=== PATIENT | male | born 1955 | race African-American/Black ===

== ENCOUNTER 2016-07-10 15:26 | Inpatient (IN) | payer OTHER ==
[~2016-07-10] VITALS: Ht 167.6 cm; Wt 57.8 kg
[2016-07-10] VITALS (15 sets, daily range): BP systolic 73–139; BP diastolic 52–119
--- NOTE | ~2016-07-10 | EKG ---
[place] [address] [facility] [place] [address] ELECTROCARDIOGRAM REPORT Name: SWAPNA LUA Room #: 242-P ADM IN M.R.#: [id number] Admission: 07/10/16 Attend Phys: Rogelio Kasper MD Discharge: Date of : 59 Report #: [id number] THIS REPORT FOR: //name// 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
--- NOTE | ~2016-07-10 | HC ---
[facility] [place] [address] CONSULTATION Name: SWAPNA LUA Room #: 454-P ADM IN M.R.#: [id number] Admission: 07/10/16 Attend Phys: Rogelio Kasper MD Discharge: Date of : 59 Report #: [id number] THIS REPORT FOR: //name// CC: Quiana Kasper CHIEF COMPLAINT: Right septic hip. HISTORY OF PRESENT ILLNESS: This is a quadriplegic patient with deep decubitus ulcer on his right lower extremity, was admitted this past weekend and evaluated for his right hip. He has a large ulcer with extension into the hip joint for which orthopedics was consulted. PAST MEDICAL HISTORY: Includes quadriplegia, hyperlipidemia, , ileal conduit, diverting colostomy, contracture of the lower extremities, diabetes, history of kidney injury due to gentamicin, history of rhabdomyolysis, hypothyroidism, anemia, history of VRE infection, DVT in the right upper extremity in the past, neurogenic bowel, pneumonia, decubitus ulcers. SOCIAL HISTORY: Negative for tobacco or alcohol use, lives in a prison facility. FAMILY HISTORY: Noncontributory. ALLERGIES: None. HOME MEDICATIONS: Noted on the chart. PHYSICAL EXAMINATION: The patient's right lower extremity notes a very large decubitus ulcer with extension posteriorly into the femoroacetabular joint. It is approximately 10 cm in diameter wound with multiple contractures noted to the extremity. IMAGING: CT scan joint of the right hip. IMPRESSION: Right hip and pelvis decubitus ulcers. PLAN: Options were discussed with the patient. At this point, anything surgical would likely include a hip disarticulation for definite management. There does not appear to be enough soft tissue for coverage. Primarily, I would defer this to a tertiary center for further management. Continue with IV antibiotic managements and symptomatic treatments. <ELECTRONICALLY SIGNED> By: Rj Joe MD 07/19/16 1225 1305 1421 Rj Joe MD /nt
--- NOTE | ~2016-07-10 | HC ---
[facility] [place] [address] CONSULTATION Name: SWAPNA LUA Room #: 242-P ADM IN M.R.#: [id number] Admission: 07/10/16 Attend Phys: Rogelio Kasper MD Discharge: Date of : 59 Report #: [id number] THIS REPORT FOR: //name// CC: Quiana Kasper DATE OF SERVICE: 07/10/2016 DATE OF SERVICE: 07/10/2016. REFERRING PROVIDER: Dr. Kasper. REASON FOR CONSULTATION: Sepsis and acidosis. CHIEF COMPLAINT: Altered mental status. HISTORY OF PRESENT ILLNESS: Our group was asked to see the patient in consultation while hospitalized at [facility], seen in ICU this evening. The patient unable to give any history, taken from records, discussion with healthcare providers, history is at the bedside is a 61-year-old male with multiple problems including chronic metabolic acidosis to ileal conduit as well has a history of quadriplegia, severe decubitus ulcerations, just discharged from here 3 days ago, returned from a [facility]pc facility for increasing lethargy. The patient was seen in the Emergency Department. A CT scan of the head without significant acute change. CT abdomen and pelvis, multiple abnormal findings, but nothing that suggests new or acute process, significant acidosis, hypotension noted. The patient received 2 liters of saline Emergency Department ongoing IV fluid resuscitation, this patient appears to be more alert, no distress, not conversant. ALLERGIES: No known drug allergies. PAST MEDICAL HISTORY: 1. History of quadriplegia. 2. Hyperlipidemia. 3. Multiple deep decubitus ulcers. 4. History of ileal conduit. 5. History of diverting colostomy. 6. Severe contractures to the quadriplegia. 7. History of chronic metabolic acidosis secondary to ileal conduit. 8. Hypothyroidism. 9. History of vancomycin-resistant Enterococcus. 10. History of deep venous thrombosis. SOCIAL HISTORY: Nonsmoker, nondrinker, currently lives in a fpc. [address] [address] CONSULTATION Name: SWAPNA LUA Room #: [facility] IN ..#: [id number] Admission: 07/10/16 Attend Phys: Rogelio Kasper MD Discharge: Date of : 59 Report #: [id number] FAMILY HISTORY: Unobtainable due to his current status. REVIEW OF SYSTEMS: Unobtainable due to his current status. INPATIENT MEDICATIONS: 1. Vancomycin. 2. Levaquin. 3. Zosyn. 4. Fentanyl. 5. DuoNeb. PHYSICAL EXAMINATION: VITAL SIGNS: Afebrile, pulse 90s, respiratory rate 14, blood pressure 106/67 and oxygen saturation 99%. GENERAL: This is an elderly male. Awake . ENT: Clear oropharynx, somewhat dry. NECK: Supple, no lymphadenopathy. LUNGS: Clear. No wheezes or crackles. CARDIOVASCULAR: Heart regular. No murmurs or gallops. ABDOMEN: Soft, nontender. Ileostomy and colostomy are present. EXTREMITIES: [place] extremities with significant contractures. No edema. Significant muscular atrophy noted. LABORATORY DATA: Chest x-ray essentially clear. White blood cell count 16,000, hemoglobin 9, hematocrit 27, platelet count 724. Sodium 145, potassium 4.8, chloride 117, bicarbonate 16, BUN 53, creatinine 1.3, glucose 101, alkaline phosphatase , albumin 1.2. IMPRESSION: 1. Sepsis of unclear etiology, multiple potential sources including urinary tract and multiple decubitus ulcers, suggesting nothing for pneumonia in this case. 2. Hypertension, seems to respond will IV fluids, likely secondary to #1 above and mild volume depletion. 3. Hypernatremia. 4. Severe metabolic acidosis with concomitant respiratory acidosis, pH slightly low for the level of metabolic acidosis and this is likely related to ileal conduit. 5. Quadriplegia. 6. Contractures. 7. Deep decubitus ulcers. SUGGESTIONS: 1. ID consultation. 2. Wound care management. Continue with IV antibiotics. 3. Follow up arterial blood gas. [address] [address] CONSULTATION Name: SWAPNA LUA Room #: 242-[facility] IN M.R.#: [id number] Admission: 07/10/16 Attend Phys: Rogelio Kasper MD Discharge: Date of : 59 Report #: [id number] 4. Minimize any sedating medications that may alter respiratory acidosis further. 5. To check TSH if not done in the recent past. 6. ICU care. 7. Continue with IV fluids. 8. Additional recommendations to follow. Thank you for requesting our suggestions. <ELECTRONICALLY SIGNED> By: Joselo Blount MD 07/11/16 1121 [id number] [id number] Joselo Blount MD /nt
--- NOTE | ~2016-07-10 | HC ---
[facility] [place] [address] CONSULTATION Name: SWAPNA LUA Room #: 242-P ADM IN M.R.#: [id number] Admission: 07/10/16 Attend Phys: Rogelio Kasper MD Discharge: Date of : 59 Report #: [id number] THIS REPORT FOR: //name// CC: Quiana Kasper DATE OF CONSULTATION: 07/11/2016. REASON FOR CONSULTATION: Multiple electrolyte abnormalities. HISTORY OF PRESENT ILLNESS: This 61-year-old male has a longstanding history of quadriplegia and multiple complications thereof. We have seen him previously for electrolyte abnormalities including hypoalbuminemia, hypokalemia and hyperchloremic metabolic acidosis as well as episodic acute kidney injury with intercurrent illness. He was admitted at this time and following a recent discharge from [facility] where he had been hospitalized from 06/26/2016-07/04/2016 with sepsis related to chronic wounds. He is readmitted at this time with confusion and diminished clinical status. He was admitted to the Intensive Care Unit due to hypotension and started on Levophed. Appropriate cultures have been obtained. DIAGNOSTIC DATA: His electrolyte studies remarkable for potassium 4.8, chloride 117, CO2 16, BUN 53, creatinine 1.3. Arterial blood gases pH 7.21, pCO2 of 35, pO2 81. Lactate 0.9. PAST MEDICAL HISTORY: Remarkable as described above for paraplegia. He has neurogenic bladder status post ileal conduit, diverting colostomy, diabetes mellitus, contracture deformities, ventral hernias, repeated DVTs and nosocomial infection. ALLERGIES: He has no known drug allergies. SOCIAL HISTORY: He resigned in a nursing facility. He has no reported drug or alcohol abuse. He is disabled. FAMILY HISTORY, PERSONAL AND SOCIAL HISTORY: Unavailable at this time. MEDICATIONS: Prior to admission to the hospital include albuterol, , Kingsley, Nephrocaps, Lipitor, baclofen, Rocephin, Celexa, Valium, hydrocodone, Niferex, Remeron, pantoprazole. PHYSICAL EXAMINATION: GENERAL: Reveals a chronically ill, well-developed but deformed male with contractures. He responds, but is sluggish. VITAL SIGNS: Blood pressure 94/61, pulse 94, respirations 13. SKIN: Warm and dry. There are multiple superficial wounds with a sacral decubitus which I was unable to review at the time of examination. There is a [address] [address] CONSULTATION Name: SWAPNA LUA Room #: 242-P ADM IN [facility].#: [id number] Admission: 07/10/16 Attend Phys: Rogelio Kasper MD Discharge: Date of : 59 Report #: [id number] PEG tube in place, a colostomy tube and a ileal conduit ostomy in place. EXTREMITIES: Reveal diminished turgor. There is no clubbing, cyanosis, edema or adenopathy. HEENT: The head is normocephalic and atraumatic. NECK: Supple. LUNGS: [place] reveal scattered rhonchi bilaterally without evidence of consolidation. CARDIOVASCULAR: Reveals regular rate and rhythm. ABDOMEN: Soft and nontender. NEUROLOGIC: Reveals the patient to be lethargic, but arousable. He does respond to questions appropriately. He has the above described quadriplegia. LABORATORY STUDIES: Available at the time of consultation include sodium 148, potassium 4.5, chloride 121, CO2 14, BUN 39, creatinine 1.1, calcium 7.3, phosphorus , magnesium 0.9, albumin 0.9. White blood cell count 14,900, hemoglobin 7.6, hematocrit 24.4, platelet count 602,000. Arterial blood gases pH 7.188, pCO2 of 30, pO2 107. Lactate 0.9. ASSESSMENT: 1. Hyperchloremic metabolic acidosis related to his ileal conduit. He needs additional bicarbonate supplementation. Normal saline hydration is aggravating his hyperchloremic metabolic acidosis. I have reformulated his intravenous fluids accordingly. 2. Hypomagnesemia, undergoing replacement. 3. History of hypophosphatemia with unknown current phosphorus status. We will obtain a current value. 4. Quadriplegia state. 5. Recurrent sepsis syndrome. Cultures pending, maintained on low dose Levophed at this time. 6. This patient has multiple active medical problems. Palliative care has been addressed with him in the past and he has not wish to pursue that operation. This may be warrant reconsideration at this time. Please see orders. CRITICAL CARE: 45 minutes. <ELECTRONICALLY SIGNED> By: Padilla Evangelista MD 07/11/16 1416 0805 0856 Padilla Evangelista MD /nt
--- NOTE | ~2016-07-10 | H ---
[facility] [place] [address] HISTORY AND PHYSICAL Name: SWAPNA DE LA FUENTE Room #: 170-10 ADM IN M.R.#: [id number] Admission: 07/10/16 Attend Phys: Rogelio Kasper MD Discharge: Date of : 59 Report #: [id number] THIS REPORT FOR: //name// CC: Quiana Kasper DATE OF SERVICE: 07/10/2016 CHIEF COMPLAINT: Lethargy and confusion. History was primarily obtained from talking to the ER physician and also to the patient's sister with DPOA at bedside. HISTORY OF PRESENT ILLNESS: Mr. De La Fuente is a 61-year-old male with history of quadriplegia who is bedbound, history of chronic decubitus ulcer, history of colostomy, PEG tube, and ileal conduit, was brought into the Emergency Room because of lethargy. According to the patient's sister, the patient was apparently a little confused on Thursday. He was more confused and lethargic this morning. Workup in the Emergency Room showed elevated white count and history of sepsis. He does have chronic stage IV decubitus ulcer. He also complains of abdominal pain. REVIEW OF SYSTEMS: Kind of limited from the patient because of his confusion. He is still oriented to self. He is able to recognize his sister. He occasionally follows some simple command. PAST MEDICAL HISTORY: Significant for quadriplegia, history of hyperlipidemia, depression, ileal conduit, diverting colostomy, contracture of the lower extremity and upper extremity, diabetes. He has history of acute kidney injury in the past secondary to gentamicin, history of rhabdomyolysis, hypothyroidism, anemia, history of VRE infection, DVT in the right upper extremity in the past, neurogenic bowel, pneumonia, mild muscle weakness, multiple decubitus ulcers. SOCIAL HISTORY: No smoking or alcohol abuse or illicit drug abuse. The patient lives in a group home facility. FAMILY HISTORY: Noncontributory for this admission. ALLERGIES: No known drug allergy. HOME MEDICATIONS: Reviewed, please look at the nursing documentation of home medications. REVIEW OF SYSTEMS: Unable to obtain at present because of his lethargy. PHYSICAL EXAMINATION: [facility] [address] [place] [address] HISTORY AND PHYSICAL Name: SWAPNA DE LA FUENTE Room #: 170-10 ADM IN [facility]#: [id number] Admission: 07/10/16 Attend Phys: Rogelio Kasper MD Discharge: Date of : 59 Report #: [id number] VITAL SIGNS: Reviewed. His blood pressure initially was 92/57. His blood pressure now is 103/65. His normal blood pressure runs in the systolic in the 80s. His heart rate is 98 per minute, afebrile. GENERAL: He is awake. He follows some simple commands, but is lethargic and confused. He is oriented to self. EYES: Pupils equal, reactive to light. THROAT: Dry oral mucosa. NECK: Supple, no JVD, no bruit, no lymphadenopathy.00 CARDIOVASCULAR: S1, S2. No S3. CHEST: Bilateral air entry present. Reduced breath sounds on the bases, clear on auscultation. ABDOMEN: Mildly distended. Reduced bowel sounds. He has mild diffuse tenderness, no rebound tenderness. No guarding. PERIPHERY: He has trace pedal edema bilaterally. Difficult to appreciate dorsalis pedis bilaterally. He does have a stage I decubitus ulcers on both the heels and also on the lateral aspect of the right ankle. NEUROLOGICAL: He has stage IV ulcers in both the gluteal area. LABORATORY DATA: Reviewed. His EKG shows sinus rhythm, no significant ST segment or T-wave changes. CT of the brain showed no acute abnormality. Chest x-ray showed improving vascular congestion and pulmonary edema and improving lower lobe infiltrate and minimal left-sided pneumonia. His white count is 16,000, hemoglobin is 8.6, platelet is 724. His INR is 1.1. His chemistry showed a sodium of 145, bicarbonate is 16, BUN and creatinine of 53 and 1.3. AST and ALT are 56 and 37, alkaline phosphatase of 301. His albumin is 1.2. UA revealed 1+ blood, trace leukocyte esterase, 0 to 5 wbc. ASSESSMENT AND PLAN: 1. Sepsis. He has multiple focus of possible infection. He does have a left subclavian ____ could be line related, it could be infected decubitus ulcer, rule out any intraabdominal source of infection. The patient will be continued on broad-spectrum antibiotic, Zosyn, levofloxacin, and vancomycin. I have ordered a CT of the abdomen and pelvis to rule out any intraabdominal process. He will be hydrated with IV fluids. He so far received 2 liters of fluid in the ER. He will continue with IV hydration. Infectious Disease also will be consulted. 2. Quadriplegia. 3. Deep venous thrombosis prophylaxis. We will place him on SCD on the leg for deep venous thrombosis prophylaxis. 4. Metabolic acidosis. We will repeat his lactic acid again at 6:30 p.m. 5. Status post percutaneous endoscopic gastrostomy placement status post [facility] [address] [place] [address] HISTORY AND PHYSICAL Name: SWAPNA DE LA FUENTE Room #: 170-10 ADM IN .R.#: [id number] Admission: 07/10/16 Attend Phys: Rogelio Kasper MD Discharge: Date of : 59 Report #: [id number] colostomy and ileal conduit. 6. Severe protein-energy malnutrition, albumin of 1.2. 7. Sacral decubitus ulcer. We will consult Dr. Daniel from wound care. We will check on the CT of the abdomen and pelvis to rule out any osteomyelitis. Treatment plan has been explained to the patient's sister who was also his DPOA in detail. <ELECTRONICALLY SIGNED> By: Rogelio Kasper MD 07/10/16 [phone] Rogelio Kasper MD /nt
--- NOTE | ~2016-07-10 | HC ---
[facility] [place] [address] CONSULTATION Name: SWAPNA LUA Room #: 454-P ADM IN M.R.#: [id number] Admission: 07/10/16 Attend Phys: Rogelio Kasper MD Discharge: Date of : 59 Report #: [id number] THIS REPORT FOR: //name// CC: Quiana Kasper REASON FOR CONSULTATION: I was asked to evaluate concerning septic shock. HISTORY OF PRESENT ILLNESS: The patient was a 61-year-old with quadriplegia, extensive pelvic decubiti and osteomyelitis, [facility] resident, has been hospitalized multiple times in the last several months with sepsis, last 06/26/2016 through 07/07/2016 with a Proteus bacteremia and Klebsiella identified from a ureterostomy. He received IV antibiotic therapy and dismissed on Augmentin. Returns now with decreased mental status, hypotension. CT scan of the head showed no significant change. CT scan of the abdomen and pelvis again shows extensive pelvic disease and osteomyelitis with no definite abscess. He received IV fluids and placed on IV antibiotic therapy. Today he is better, more alert and conversant. He did know that he was in the hospital but could give no other history. ALLERGIES: None known. REVIEW OF SYSTEMS: He has had no cough or sputum production. He has a left IJ tunneled catheter in place that was put in about a month to 6 weeks ago. He has a colostomy and a urostomy, PEG tube, ventral hernia. PAST MEDICAL HISTORY, FAMILY HISTORY AND SOCIAL HISTORY: Otherwise unchanged from his previous consultations and that of his history and physical. MEDICATIONS: Included vancomycin, Levaquin, Zosyn. PHYSICAL EXAMINATION: VITAL SIGNS: He is afebrile, blood pressure in the 90s systolic with a MAP in the 70-80 range, now off Levophed, on room air. GENERAL: He is alert and cooperative, has contractures in his upper extremities and paralysis in the lower extremities with contractures as well, extensive pelvic decubiti as before. LUNGS: Clear. HEART: Regular. ABDOMEN: Mildly distended. He has a midabdominal ventral hernia. PEG site was unremarkable, colostomy in the left unremarkable, ileal conduit on the right unremarkable. LABORATORY STUDIES: Hemoglobin 7.6, white count 14.9, platelet count was 602,000. ABG on room air showed pO2 107, pCO2 29, pH 7.18, bicarb of 11, sodium 148, potassium 4.5, bicarbonate of 14, creatinine 1.1, AST 35, magnesium 0.9, alkaline phosphatase 234, ALT 40, bilirubin 0.2, albumin 0.9, lactate 0.6. [address] [address] CONSULTATION Name: SWAPNA LUA Room #: 454-P ADM IN M.R.#: [id number] Admission: 07/10/16 Attend Phys: Rogelio Kasper MD Discharge: Date of : 59 Report #: [id number] Urinalysis unremarkable other than yeast was present. Urine cultures pending. Blood cultures pending. Influenza antigen negative. CT scan had no change. No acute abnormalities. CT scan of the abdomen and pelvis, right hip soft tissue changes with air traction to the joint. No definite abscess. IMPRESSION AND PLAN: Recurrent sepsis in a patient with quadriplegia, ileal conduit, colostomy, extensive pelvic pressure wounds with extension into his right hip associated with osteomyelitis. I am suspecting his pelvic as a source of his sepsis. He does have central venous catheter in place and we will need to await blood culture results. Chest x-ray shows basilar changes and vascular congestion, overall improved from before. I do not think that pneumonia is his cause at this time. I would recommend that we continue IV antibiotic therapy while awaiting cultures. He has improved with fluid resuscitation. Remains on treatment for metabolic acidosis. Nephrology is assisting with this. <ELECTRONICALLY SIGNED> By: Michael Goyal MD 07/14/16 0818 0932 1004 Michael Goyal MD /nt
[~2016-07-10 15:26] MED LIST: ACETAMINOPHEN325 M3 PO; ALBUTEROL0.63 MG/3 INH; ANTACID650 MG PO; APAP650; BENADRYL25 MG PO; BETADINE30 ML OP; CATHFLO ACT2 MG/VIAL; CELEXA20 MG PO; CENTRUM SILVER1 EAC2; COLACE100 MG PO; DEX4 GLUCOSE1 EACH PO; DEXTROSE 5025 GM/SYR; DIFLUCAN100 MG; DIPHENHYDRAMINE25 M3; DUONEB 2.5-0.5 M3 ML; ENOXAPARIN30 MG/0.1 SUBQ; ENOXAPARIN40 MG/0.1 SUBQ; ENOXAPARIN60 MG/0.1; FLAGYL500 MG; FOLIC ACID1 MG; GLUCAGEN1 MG; GLUCERNA237 M1 PO; GLUCOSE GEL38 GM; HYDROCERIN CREA1 JAR; HYDROCODONE-AP1 EAC6 PO; IRON325 PO; JANTOVEN5 MG PO; JUVEN PACKET1 EACH PO; KAYEXALATE15 GM/601 PO; KETOCONAZOLE60 GM TOP; LASIX 20 MG TAB20 MG PO; LEXAPRO 10 MG T10 M1 PO; LEXAPRO 10 MG T10 M2 PO; LINEZOLID600 MG; LINEZOLID600 MG/300 IV; LIORESAL 10 MG10 MG PO; LIPITOR10 MG PO; MAGNESIUM OXID200 MG; MAGOX 400400 MG PO; MEROPENEM500 MG IV; MIDODRINE HCL 55 M1; MIRALAX17 GM; MIRALAX255 GM PO; MUCINEX TA600 MG/TA2; NEPHROCAPS SOFT1 CAP PO; NOREPINEPH; NUVIGIL150 MG; ONDANSETRON HCL4 M2; OXYBUTYNIN 5 MG5 M2; OXYCODONE HCL 55 MG; PANTOPRAZOLE SO40 M1 PO; PIPERACIL-TAZ2.25 GM; POLYSACCHARIDE150 M1 PO; POTASSIUM20 PO; PRILOSEC 20 MG20 MG PO; PRO-STAT LIQUID30 M1 PO; PROTONIX40 M1; REGLAN 10 MG TA10 MG; REGLAN 10 MG TA10 MG PO; REMERON15 MG PO; ROBITUSSIN100 MG/53 PO; ROCEPHIN 11 GM/1001 IM; ROCEPHIN 11 GM/1001 IV; ROXICODONE5 M2 PO; SALINE FLUSH IV PUSH; SENNA S TABLET1 EACH PO; TEARS NATURALE1 EACH OPHTHALMIC; TUMS PO; VALIUM5 MG PO; VANCO1GM IVPB; VITAMINC500 PO; ZANTAC 150MG T150 M1 PO; ZOFRAN ODT4 MG DISSOLVE; ZOSYN 4.54.5 GM/101 IV
[2016-07-10 15:56] LABS: HEMOGLOBIN 8.6 gm/dL (14.0-18.0); MCH 27.5 pg (26.0-34.0); MCHC 31.8 g/dL (28.0-37.0); MCV 86.2 fL (80.0-100.0); PLATELET COUNT 724 thou/uL (150-400); RBC 3.13 mil/uL (4.50-6.00); RDW 20.7 % (10.5-14.5)
[2016-07-10 15:57] LABS: MANUAL DIFF YES
[2016-07-10 16:07] LABS: INR 1.1; PROTIME 11.2 Seconds (9.3-11.4)
[2016-07-10 16:14] LABS: ANION GAP 12 mmol/L (7-16); BUN 53 mg/dL (7-18); CALCIUM 8.6 mg/dL (8.5-10.1); CHLORIDE 117 mmol/L (98-107); CO2 16 mmol/L (21-32); CREATININE 1.3 mg/dL (0.6-1.3); GLUCOSE 101 mg/dL (70-99); POTASSIUM 4.8 mmol/L (3.5-5.1); SODIUM 145 mmol/L (136-145)
[2016-07-10 16:21] LABS: ALBUMIN 1.2 g/dL (3.4-5.0); ALKALINE PHOSPHATASE 301 U/L (46-116); SGOT 56 U/L (15-37); SGPT 57 U/L (30-65); TOTAL BILIRUBIN 0.2 mg/dL (<0.1-1.0); TOTAL PROTEIN 7.6 g/dL (6.4-8.2); TROPONIN-I < 0.04 ng/mL (<0.04-0.07)
[2016-07-10 16:30] LABS: ABSOLUTE NEUTROPHILS 13.4 thou/uL (1.4-8.2); ANISOCYTOSIS 2+; TOTAL CELL COUNT 100
[2016-07-10 16:50] LABS: URINE BILIRUBIN NEGATIVE (Negative); URINE BLOOD 1+ (Negative); URINE COLOR YELLOW; URINE GLUCOSE-RANDOM* NEGATIVE (Negative); URINE KETONES NEGATIVE (Negative); URINE NITRITE NEGATIVE (Negative); URINE PROTEIN (DIPSTICK) 2+ (Negative); URINE UROBILINOGEN 0.2 E.U./dl (0.2-1.0)
[2016-07-10 17:04] LABS: YEAST Present (None Seen)
[2016-07-10 17:05] LABS: CASTS None Seen /LPF (None Seen); CRYSTALS None Seen /LPF (None Seen); URINE WBC 0-5 Rare /HPF (0-5)
[2016-07-10 17:06] LABS: BACTERIA 1-9 Few /HPF (None Seen); SQUAMOUS 0-3 Few /LPF (0-3); URINE RBC 0-2 Rare /HPF (0-2)
[2016-07-10 18:28] LABS: ABG SAMPLE TYPE ARTERIAL; BE(vivo) -13.1 mmol/L (-2 to +3); HCO3 13.7 mmol/L (22.0-26.0); LACTATE 0.95 mmol/L (0.5-2.0); O2(CT) 11.5 mL/dL (15.0-23.0); O2Hb 94.9 % (92.0-98.0); PO2 81.9 mmHg (80.0-100.0); sO2 93.9 % (92.0-98.0); tCO2 14.8 mmol/L (24.0-30.0)
[2016-07-10 18:29] LABS: pH 7.211 (7.360-7.450)
[2016-07-11] VITALS (53 sets, daily range): BP systolic 62–213; BP diastolic 40–135
[2016-07-11 04:34] LABS: ALBUMIN 0.9 g/dL (3.4-5.0); CALCIUM 7.3 mg/dL (8.5-10.1); CREATININE 1.1 mg/dL (0.6-1.3); POTASSIUM 4.5 mmol/L (3.5-5.1); TOTAL BILIRUBIN 0.2 mg/dL (<0.1-1.0); TOTAL PROTEIN 6.1 g/dL (6.4-8.2)
[2016-07-11 04:54] LABS: MAGNESIUM 0.9 mg/dL (1.8-2.4)
[2016-07-11 05:41] LABS: ABG SAMPLE TYPE ARTERIAL; BE(vivo) -15.8 mmol/L (-2 to +3); O2Hb 96.7 % (92.0-98.0); PCO2 29.8 mmHg (35.0-45.0); sO2 96.8 % (92.0-98.0)
[2016-07-11 06:02] LABS: pH 7.187 (7.360-7.450)
[2016-07-11 07:14] LABS: HEMATOCRIT 24.4 % (42.0-52.0); HEMOGLOBIN 7.6 gm/dL (14.0-18.0); MCH 27.3 pg (26.0-34.0); MCV 88.2 fL (80.0-100.0); RBC 2.77 mil/uL (4.50-6.00); RDW 21.6 % (10.5-14.5); WBC 14.9 thou/uL (4.0-11.0)
[2016-07-11 14:22] LABS: ABG SAMPLE TYPE ARTERIAL; BE(vivo) -12.6 mmol/L (-2 to +3); HCO3 13.2 mmol/L (22.0-26.0); LACTATE 1.56 mmol/L (0.5-2.0); O2(CT) 12.3 mL/dL (15.0-23.0); O2Hb 96.8 % (92.0-98.0); PCO2 29.9 mmHg (35.0-45.0); PO2 102.8 mmHg (80.0-100.0); pH 7.264 (7.360-7.450); tCO2 14.2 mmol/L (24.0-30.0)
[2016-07-11 15:14] LABS: CALCIUM 7.6 mg/dL (8.5-10.1); MAGNESIUM 1.9 mg/dL (1.8-2.4); PHOSPHORUS 2.9 mg/dL (2.5-4.9); POTASSIUM 3.9 mmol/L (3.5-5.1)
[2016-07-12] VITALS (39 sets, daily range): BP systolic 79–103; BP diastolic 37–71
[2016-07-12 04:57] LABS: HEMATOCRIT 22.6 % (42.0-52.0); HEMOGLOBIN 7.3 gm/dL (14.0-18.0); MCH 27.6 pg (26.0-34.0); MCHC 32.4 g/dL (28.0-37.0); MCV 85.1 fL (80.0-100.0); RBC 2.66 mil/uL (4.50-6.00); RDW 20.4 % (10.5-14.5); WBC 11.7 thou/uL (4.0-11.0)
[2016-07-12 05:11] LABS: ALBUMIN 0.9 g/dL (3.4-5.0); CALCIUM 7.3 mg/dL (8.5-10.1); CREATININE 1.1 mg/dL (0.6-1.3); MAGNESIUM 1.5 mg/dL (1.8-2.4); PHOSPHORUS 2.6 mg/dL (2.5-4.9); POTASSIUM 3.5 mmol/L (3.5-5.1)
[2016-07-12 05:29] LABS: ABG SAMPLE TYPE ARTERIAL; BE(vivo) -6.6 mmol/L (-2 to +3); HCO3 17.6 mmol/L (22.0-26.0); LACTATE 2.11 mmol/L (0.5-2.0); O2(CT) 10.9 mL/dL (15.0-23.0); O2Hb 95.3 % (92.0-98.0); PCO2 30.1 mmHg (35.0-45.0); PO2 86.5 mmHg (80.0-100.0); pH 7.385 (7.360-7.450); sO2 96.6 % (92.0-98.0); tCO2 18.5 mmol/L (24.0-30.0)
[2016-07-12 05:30] LABS: STICK SITE R.RADIAL
[2016-07-13 02:54] VITALS: BP 92/52
[2016-07-13 04:26] LABS: ABSOLUTE NEUTROPHILS 10.5 thou/uL (1.4-8.2); BASOPHILS 0.5 % (0.0-2.0); EOSINOPHILS 1.9 % (0.0-3.0); HEMATOCRIT 21.7 % (42.0-52.0); LYMPHOCYTES 8.2 % (24.0-44.0); MCH 27.1 pg (26.0-34.0); MCHC 32.4 g/dL (28.0-37.0); MCV 83.7 fL (80.0-100.0); MONOCYTES 7.2 % (1.0-8.0); POLYS 82.2 % (36.0-66.0); RBC 2.59 mil/uL (4.50-6.00); RDW 20.1 % (10.5-14.5); WBC 12.8 thou/uL (4.0-11.0)
[2016-07-13 04:34] LABS: PLATELET COUNT 525 thou/uL (150-400)
[2016-07-13 04:35] LABS: MANUAL DIFF NO
[2016-07-13 04:44] LABS: ALBUMIN 0.9 g/dL (3.4-5.0); CALCIUM 7.1 mg/dL (8.5-10.1); MAGNESIUM 1.5 mg/dL (1.8-2.4); PHOSPHORUS 1.5 mg/dL (2.5-4.9); POTASSIUM 3.1 mmol/L (3.5-5.1)
[2016-07-13 07:46] VITALS: BP 93/48
[2016-07-13 11:59] VITALS: BP 87/50
[2016-07-13 15:40] VITALS: BP 86/49
[2016-07-13 20:09] VITALS: BP 101/57
[2016-07-14 03:09] VITALS: BP 102/48
[2016-07-14 06:24] LABS: RDW 20.4 % (10.5-14.5); WBC 11.1 thou/uL (4.0-11.0)
[2016-07-14 06:27] LABS: MCH 27.5 pg (26.0-34.0); MCHC 32.4 g/dL (28.0-37.0); MCV 84.7 fL (80.0-100.0); PLATELET COUNT 457 thou/uL (150-400); RBC 2.47 mil/uL (4.50-6.00)
[2016-07-14 06:30] LABS: HEMOGLOBIN 6.8 gm/dL (14.0-18.0); MANUAL DIFF YES
[2016-07-14 06:37] LABS: ALBUMIN 0.9 g/dL (3.4-5.0); CALCIUM 7.1 mg/dL (8.5-10.1); CREATININE 1.1 mg/dL (0.6-1.3); MAGNESIUM 1.6 mg/dL (1.8-2.4); PHOSPHORUS 2.5 mg/dL (2.5-4.9); POTASSIUM 4.3 mmol/L (3.5-5.1)
[2016-07-14 07:08] LABS: ABSOLUTE NEUTROPHILS 9.4 thou/uL (1.4-8.2); TOTAL CELL COUNT 100
[2016-07-14 07:10] LABS: ANISOCYTOSIS 2+; POLYCHROMASIA OCCASIONAL
[2016-07-14 08:12] VITALS: BP 91/53
[2016-07-14 11:57] VITALS: BP 97/61
[2016-07-14 16:20] VITALS: BP 93/53
[2016-07-14 17:35] VITALS: BP 91/56; BP 91/57
[2016-07-14 19:49] VITALS: BP 93/60
[2016-07-15 03:45] VITALS: BP 99/61
[2016-07-15 06:27] LABS: ABSOLUTE NEUTROPHILS 8.5 thou/uL (1.4-8.2); BASOPHILS 0.6 % (0.0-2.0); EOSINOPHILS 7.2 % (0.0-3.0); HEMATOCRIT 23.7 % (42.0-52.0); HEMOGLOBIN 7.9 gm/dL (14.0-18.0); LYMPHOCYTES 10.1 % (24.0-44.0); MCHC 33.4 g/dL (28.0-37.0); MCV 83.7 fL (80.0-100.0); PLATELET COUNT 390 thou/uL (150-400); POLYS 75.1 % (36.0-66.0); RBC 2.83 mil/uL (4.50-6.00); RDW 19.3 % (10.5-14.5); WBC 11.4 thou/uL (4.0-11.0)
[2016-07-15 06:28] LABS: MANUAL DIFF NO
[2016-07-15 06:53] LABS: ALBUMIN 0.9 g/dL (3.4-5.0); CALCIUM 7.5 mg/dL (8.5-10.1); CREATININE 1.1 mg/dL (0.6-1.3); MAGNESIUM 1.8 mg/dL (1.8-2.4); PHOSPHORUS 2.7 mg/dL (2.5-4.9); POTASSIUM 4.7 mmol/L (3.5-5.1)
[2016-07-15 08:00] VITALS: BP 92/57
[2016-07-15 12:25] VITALS: BP 84/55
[2016-07-15 16:00] VITALS: BP 108/66
[2016-07-15 19:14] VITALS: BP 81/55
[2016-07-15 23:30] VITALS: BP 83/57
[2016-07-16 03:43] VITALS: BP 85/51
[2016-07-16 08:05] VITALS: BP 81/53
[2016-07-16 12:19] VITALS: BP 80/48
[2016-07-16 16:09] VITALS: BP 81/52
[2016-07-16 19:37] VITALS: BP 94/60
[2016-07-17 04:08] VITALS: BP 90/56
[2016-07-17 08:27] VITALS: BP 90/54
[2016-07-17 12:03] VITALS: BP 88/51
[2016-07-17 19:27] VITALS: BP 107/70
[2016-07-18 05:45] VITALS: BP 97/64
[2016-07-18 11:41] VITALS: BP 88/56
[2016-07-18 16:00] VITALS: BP 90/56
[2016-07-18 19:07] VITALS: BP 98/54
[2016-07-19 03:17] VITALS: BP 87/51
[2016-07-19 08:02] VITALS: BP 110/61
[2016-07-19 11:55] VITALS: BP 120/78
[2016-07-19 16:14] VITALS: BP 103/66
[2016-07-19 19:45] VITALS: BP 82/55
[2016-07-20 04:01] VITALS: BP 136/85
[2016-07-20 04:48] LABS: HEMATOCRIT 26.6 % (42.0-52.0); HEMOGLOBIN 8.5 gm/dL (14.0-18.0); MCHC 32.1 g/dL (28.0-37.0); MCV 87.2 fL (80.0-100.0); PLATELET COUNT 405 thou/uL (150-400); RBC 3.05 mil/uL (4.50-6.00); RDW 18.8 % (10.5-14.5)
[2016-07-20 04:53] LABS: MANUAL DIFF YES
[2016-07-20 06:02] LABS: ALBUMIN 1.1 g/dL (3.4-5.0); CALCIUM 7.9 mg/dL (8.5-10.1)
[2016-07-20 06:06] LABS: POTASSIUM 6.1 mmol/L (3.5-5.1)
[2016-07-20 06:15] LABS: ABSOLUTE NEUTROPHILS 7.5 thou/uL (1.4-8.2); TOTAL CELL COUNT 100
[2016-07-20 06:16] LABS: ANISOCYTOSIS 2+; LARGE PLATELETS OCCASIONAL; MACROCYTES 1+; MICROCYTES 1+
[2016-07-20 06:17] LABS: POLYCHROMASIA SLIGHT
[2016-07-20 08:13] VITALS: BP 108/73
[2016-07-20 12:00] VITALS: BP 97/67
[2016-07-20 16:39] VITALS: BP 105/70
[2016-07-20 19:20] VITALS: BP 109/76
[2016-07-21 04:26] VITALS: BP 98/64
[2016-07-21 08:08] VITALS: BP 105/70
[2016-07-21 12:25] VITALS: BP 107/75
[2016-07-21 15:07] VITALS: BP 154/81
[2016-07-21 19:50] VITALS: BP 111/75
[2016-07-22 03:46] VITALS: BP 103/71
[2016-07-22 08:00] VITALS: BP 110/71
[2016-07-22 16:30] VITALS: BP 106/76
[2016-07-22 20:00] VITALS: BP 104/67
[2016-07-23 03:37] VITALS: BP 119/70
[2016-07-23 06:29] LABS: ABSOLUTE NEUTROPHILS 6.2 thou/uL (1.4-8.2); BASOPHILS 1.1 % (0.0-2.0); EOSINOPHILS 8.4 % (0.0-3.0); HEMATOCRIT 25.2 % (42.0-52.0); HEMOGLOBIN 8.2 gm/dL (14.0-18.0); LYMPHOCYTES 10.7 % (24.0-44.0); MCHC 32.3 g/dL (28.0-37.0); MCV 86.4 fL (80.0-100.0); MONOCYTES 10.3 % (1.0-8.0); PLATELET COUNT 510 thou/uL (150-400); POLYS 69.5 % (36.0-66.0); RBC 2.92 mil/uL (4.50-6.00); RDW 19.1 % (10.5-14.5); WBC 8.9 thou/uL (4.0-11.0)
[2016-07-23 06:35] LABS: MANUAL DIFF NO
[2016-07-23 06:39] LABS: ALBUMIN 1.2 g/dL (3.4-5.0); CALCIUM 8.4 mg/dL (8.5-10.1); CREATININE 1.2 mg/dL (0.6-1.3)
[2016-07-23 06:51] LABS: POTASSIUM 6.3 mmol/L (3.5-5.1)
[2016-07-23 07:55] VITALS: BP 108/73
[2016-07-23 11:55] VITALS: BP 127/79
[2016-07-23 16:06] VITALS: BP 94/63
[2016-07-23 17:02] LABS: CALCIUM 8.2 mg/dL (8.5-10.1); CREATININE 1.1 mg/dL (0.6-1.3)
[2016-07-23 17:09] LABS: POTASSIUM 6.5 mmol/L (3.5-5.1)
[2016-07-23 19:41] VITALS: BP 91/59
[2016-07-23 23:53] VITALS: BP 94/62
[2016-07-24 05:02] VITALS: BP 111/70
[2016-07-24 05:55] LABS: CALCIUM 8.1 mg/dL (8.5-10.1)
[2016-07-24 08:39] VITALS: BP 88/63
[2016-07-24 12:00] VITALS: BP 95/67
[2016-07-24 17:53] VITALS: BP 102/67
[2016-07-24 19:52] VITALS: BP 98/75
[2016-07-25 03:04] VITALS: BP 108/69
[2016-07-25 08:17] VITALS: BP 114/82
[2016-07-25 11:48] VITALS: BP 110/71
[2016-07-25 15:40] VITALS: BP 129/83
[2016-07-25 19:33] VITALS: BP 110/74
[2016-07-26 04:58] VITALS: BP 108/71
[2016-07-26 07:30] VITALS: BP 110/72
[2016-07-26 11:56] VITALS: BP 108/68
[2016-07-26 19:20] VITALS: BP 104/69
[2016-07-27 03:31] VITALS: BP 104/71
[2016-07-27 06:02] LABS: HEMATOCRIT 24.4 % (42.0-52.0); MCH 28.8 pg (26.0-34.0); MCHC 32.7 g/dL (28.0-37.0); MCV 87.9 fL (80.0-100.0); RBC 2.78 mil/uL (4.50-6.00); RDW 19.5 % (10.5-14.5)
[2016-07-27 06:22] LABS: ALBUMIN 1.3 g/dL (3.4-5.0); CALCIUM 7.9 mg/dL (8.5-10.1); CREATININE 0.9 mg/dL (0.6-1.3); POTASSIUM 5.7 mmol/L (3.5-5.1); TOTAL BILIRUBIN 0.2 mg/dL (<0.1-1.0); TOTAL PROTEIN 7.4 g/dL (6.4-8.2)
[2016-07-27 06:28] LABS: MAGNESIUM 0.7 mg/dL (1.8-2.4)
[2016-07-27 09:00] VITALS: BP 100/67
[2016-07-27 16:00] VITALS: BP 11/66
[2016-07-27 21:10] VITALS: BP 11/74; BP 110/74
[2016-07-28 04:00] VITALS: BP 108/65
[2016-07-28 06:11] LABS: BASOPHILS 1.8 % (0.0-2.0); EOSINOPHILS 6.5 % (0.0-3.0); HEMOGLOBIN 7.6 gm/dL (14.0-18.0); LYMPHOCYTES 14.6 % (24.0-44.0); MCH 28.9 pg (26.0-34.0); MCHC 33.2 g/dL (28.0-37.0); MCV 87.1 fL (80.0-100.0); MONOCYTES 6.9 % (1.0-8.0); POLYS 70.2 % (36.0-66.0); RBC 2.65 mil/uL (4.50-6.00); RDW 19.6 % (10.5-14.5); WBC 7.1 thou/uL (4.0-11.0)
[2016-07-28 06:30] LABS: PLATELET COUNT 511 thou/uL (150-400)
[2016-07-28 06:49] LABS: ALBUMIN 1.3 g/dL (3.4-5.0); CALCIUM 7.9 mg/dL (8.5-10.1); POTASSIUM 5.7 mmol/L (3.5-5.1); TOTAL BILIRUBIN 0.2 mg/dL (<0.1-1.0); TOTAL PROTEIN 7.1 g/dL (6.4-8.2)
[2016-07-28 08:31] VITALS: BP 106/69
[2016-07-28 10:02] LABS: MANUAL DIFF NO
[2016-07-28 11:00] VITALS: BP 125/81
[2016-07-28 16:00] VITALS: BP 102/60
[2016-07-28 19:38] VITALS: BP 102/74
[2016-07-29 08:28] VITALS: BP 101/69
[2016-07-29 12:43] VITALS: BP 119/77
[2016-07-29 16:23] LABS: CALCIUM 7.4 mg/dL (8.5-10.1); CREATININE 0.9 mg/dL (0.6-1.3); POTASSIUM 5.4 mmol/L (3.5-5.1)
[2016-07-29 17:31] VITALS: BP 133/73
== END 2016-07-29 19:45 | disposition short-term general hospital (02) | DRG 871 ==
LOC: ER 15:26 → EROBS 17:30 → ICU 17:30 → 4W 07-12 11:45
PROVIDERS: Family Medicine; Hospitalist; Internal Medicine; Internal Medicine Endocrinology, Diabetes & Metabolism; Internal Medicine Infectious Disease; Internal Medicine Nephrology; Internal Medicine Pulmonary Disease; Nurse Practitioner Family; Physician Assistant
PROC: 30233N1 Transfusion of Nonautologous Red Blood Cells into Peripheral Vein, Percutaneous Approach (ICD-10-PCS; principal; 2016-07-14)
DX: A41.9 Sepsis, unspecified organism (principal); G82.50 Quadriplegia, unspecified; E43 Unspecified severe protein-calorie malnutrition; R65.21 Severe sepsis with septic shock; L89.154 Pressure ulcer of sacral region, stage 4; L89.324 Pressure ulcer of left buttock, stage 4; L89.314 Pressure ulcer of right buttock, stage 4; L89.214 Pressure ulcer of right hip, stage 4; E87.0 Hyperosmolality and hypernatremia; N17.9 Acute kidney failure, unspecified; N39.0 Urinary tract infection, site not specified; M00.9 Pyogenic arthritis, unspecified; K21.9 Gastro-esophageal reflux disease without esophagitis; E78.5 Hyperlipidemia, unspecified; N18.9 Chronic kidney disease, unspecified; E03.9 Hypothyroidism, unspecified; E86.9 Volume depletion, unspecified; E87.8 Other disorders of electrolyte and fluid balance, not elsewhere classified; E83.42 Hypomagnesemia; L89.611 Pressure ulcer of right heel, stage 1; L89.621 Pressure ulcer of left heel, stage 1; L89.511 Pressure ulcer of right ankle, stage 1; D63.8 Anemia in other chronic diseases classified elsewhere; E87.6 Hypokalemia; B96.5 Pseudomonas (aeruginosa) (mallei) (pseudomallei) as the cause of diseases classified elsewhere; E83.39 Other disorders of phosphorus metabolism; M62.838 Other muscle spasm; E87.5 Hyperkalemia; Z86.718 Personal history of other venous thrombosis and embolism; Z86.19 Personal history of other infectious and parasitic diseases; Z93.3 Colostomy status; Z68.20 Body mass index [BMI] 20.0-20.9, adult; Z74.01 Bed confinement status
CPT/HCPCS: 10045; 10203

== ENCOUNTER 2016-11-11 09:38 | Inpatient (IN) | payer OTHER ==
[~2016-11-11] VITALS: Ht 165.1 cm; Wt 41.1 kg
--- NOTE | ~2016-11-11 | EKG ---
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 : 1955 Requested By: Angelita Briscoe Order Number: [id number] MD: Aj Watson Measurements Intervals [place] Rate: 73 P: 28 [place]: 146 QRS: -16 QRSD: 142 T: 40 QT: 404 QTc: 446 Interpretive Statements Sinus rhythm Nonspecific intraventricular conduction delay Artifact in lead(s) II,III,aVR,aVL,aVF,V2,V4 Compared to ECG 07/10/2016 15:45:05 Intraventricular conduction delay now present ST (T wave) deviation no longer present Electronically Signed On 11-11-2016 22:57:39 CDT by Aj Watson [email or web address] <ELECTRONICALLY SIGNED> By: Aj Watson MD 11/11/16 2257 0953 0953 Aj Watson MD /EPI
[~2016-11-11 09:38] MED LIST changes: +LIORESAL 10 MG10 MG PER TUBE; +LIPITOR10 MG PER TUBE; -LIPITOR10 MG PO; +REMERON15 MG PER TUBE; -REMERON15 MG PO
[2016-11-11 09:41] VITALS: BP 109/86
[2016-11-11 10:23] LABS: HEMATOCRIT 37.3 % (42.0-52.0); HEMOGLOBIN 12.4 gm/dL (14.0-18.0); MCH 29.4 pg (26.0-34.0); MCHC 33.2 g/dL (28.0-37.0); MCV 88.6 fL (80.0-100.0); PLATELET COUNT 304 thou/uL (150-400); RBC 4.21 mil/uL (4.50-6.00); RDW 16.8 % (10.5-14.5); WBC 6.7 thou/uL (4.0-11.0)
[2016-11-11 10:26] LABS: MANUAL DIFF YES
[2016-11-11 10:35] LABS: ANION GAP 7 mmol/L (7-16); BUN 53 mg/dL (7-18); CALCIUM 9.5 mg/dL (8.5-10.1); CHLORIDE 105 mmol/L (98-107); CO2 30 mmol/L (21-32); CREATININE 1.2 mg/dL (0.7-1.3); GLUCOSE 120 mg/dL (74-106); POTASSIUM 4.2 mmol/L (3.5-5.1); SODIUM 142 mmol/L (136-145)
[2016-11-11 10:40] LABS: URINE BILIRUBIN NEGATIVE (Negative); URINE BLOOD 1+ (Negative); URINE COLOR YELLOW; URINE GLUCOSE-RANDOM* NEGATIVE (Negative); URINE KETONES NEGATIVE (Negative); URINE NITRITE NEGATIVE (Negative); URINE PROTEIN (DIPSTICK) 2+ (Negative); URINE SPECIFIC GRAVITY 1.015 (1.003-1.035); URINE UROBILINOGEN 0.2 E.U./dl (0.2-1.0)
[2016-11-11 10:41] LABS: ALBUMIN 2.8 g/dL (3.4-5.0); ALKALINE PHOSPHATASE 331 U/L (46-116); SGOT 29 U/L (15-37); SGPT 49 U/L (30-65); TOTAL BILIRUBIN 0.4 mg/dL (<0.1-1.0); TOTAL PROTEIN 9.5 g/dL (6.4-8.2); TROPONIN-I < 0.04 ng/mL (<0.04-0.07)
[2016-11-11 10:58] LABS: AMORPHOUS PHOSPHATES Few /LPF (None Seen); BACTERIA >30 Many /HPF (None Seen); CASTS None Seen /LPF (None Seen); SQUAMOUS 0-3 Few /LPF (0-3); URINE RBC 0-2 Rare /HPF (0-2); URINE WBC >25 Many /HPF (0-5)
[2016-11-11] MEDS ORDERED: OXYCODONE HCL15 MG PO (12:33)
[2016-11-11] MEDS ORDERED: POLYSACCHARIDE150 MG PO (12:34)
[2016-11-11 13:06] LABS: ANISOCYTOSIS 1+; TOTAL CELL COUNT 100
[2016-11-11 13:10] VITALS: BP 103/79
[2016-11-11] MEDS ORDERED: APAP650 PER TUBE (15:04)
[2016-11-11] MEDS ORDERED: CYTRA-2 ORAL S473 ML PER TUBE (15:06)
[2016-11-11] MEDS ORDERED: ENOXAPARIN40 MG/0.1 SUBQ (15:07)
[2016-11-11] MEDS ORDERED: LEXAPRO 10 MG T10 M1 PER TUBE (15:08)
[2016-11-11] MEDS ORDERED: MILK OF MA2400 MG/10 PER TUBE (15:09)
[2016-11-11] MEDS ORDERED: SENNA8.6 MG PER TUBE (15:10)
[2016-11-11] MEDS ORDERED: UNICOMPLEX M TA1 TA1 PER TUBE (15:10)
[2016-11-11] MEDS ORDERED: ANTACID650 MG PO (15:11)
[2016-11-11] MEDS ORDERED: ALBUTEROL2.5 MG/3 M INH (15:12)
[2016-11-11 20:00] VITALS: BP 109/77
[2016-11-12 04:00] VITALS: BP 102/58
[2016-11-12 08:08] VITALS: BP 101/66
[2016-11-12 15:45] VITALS: BP 101/72
[2016-11-12 20:07] VITALS: BP 126/78
[2016-11-13 05:12] VITALS: BP 137/92
[2016-11-13 08:17] VITALS: BP 104/65
[2016-11-13 16:00] VITALS: BP 157/99
[2016-11-13 20:00] VITALS: BP 114/86
[2016-11-14 05:42] VITALS: BP 132/87
[2016-11-14 06:20] LABS: HEMATOCRIT 38.8 % (42.0-52.0); HEMOGLOBIN 12.4 gm/dL (14.0-18.0); MCH 29.4 pg (26.0-34.0); MCHC 32.1 g/dL (28.0-37.0); MCV 91.5 fL (80.0-100.0); RBC 4.24 mil/uL (4.50-6.00); WBC 5.6 thou/uL (4.0-11.0)
[2016-11-14 06:37] LABS: CALCIUM 8.9 mg/dL (8.5-10.1)
[2016-11-14 06:47] LABS: POTASSIUM 6.4 mmol/L (3.5-5.1)
[2016-11-14 08:30] VITALS: BP 94/62
[2016-11-14 16:27] VITALS: BP 112/82
[2016-11-14 20:00] VITALS: BP 129/84
[2016-11-15 04:00] VITALS: BP 122/75
[2016-11-15 06:53] LABS: HEMATOCRIT 37.4 % (42.0-52.0); HEMOGLOBIN 12.1 gm/dL (14.0-18.0); MCH 29.2 pg (26.0-34.0); MCHC 32.2 g/dL (28.0-37.0); MCV 90.5 fL (80.0-100.0); RBC 4.13 mil/uL (4.50-6.00); WBC 5.7 thou/uL (4.0-11.0)
[2016-11-15 07:09] LABS: CALCIUM 8.9 mg/dL (8.5-10.1)
[2016-11-15 08:07] VITALS: BP 131/91
[2016-11-15 15:18] VITALS: BP 125/78
[2016-11-16 04:00] VITALS: BP 117/62
[2016-11-16 06:00] VITALS: BP 142/89
[2016-11-16 07:59] VITALS: BP 131/91
[2016-11-16 17:25] VITALS: BP 126/82
[2016-11-16 20:15] VITALS: BP 123/68
[2016-11-17 03:46] VITALS: BP 118/88
[2016-11-17 05:03] LABS: HEMATOCRIT 32.4 % (42.0-52.0); HEMOGLOBIN 10.8 gm/dL (14.0-18.0); MCH 29.9 pg (26.0-34.0); MCHC 33.2 g/dL (28.0-37.0); MCV 89.9 fL (80.0-100.0); RBC 3.6 mil/uL (4.50-6.00); RDW 16.7 % (10.5-14.5); WBC 6.9 thou/uL (4.0-11.0)
[2016-11-17 05:16] LABS: ALBUMIN 2.3 g/dL (3.4-5.0); POTASSIUM 3.7 mmol/L (3.5-5.1); TOTAL BILIRUBIN 0.3 mg/dL (<0.1-1.0); TOTAL PROTEIN 7.3 g/dL (6.4-8.2)
[2016-11-17 08:08] VITALS: BP 125/83
[2016-11-17 16:55] VITALS: BP 125/90
[2016-11-17 20:15] VITALS: BP 154/93
[2016-11-18 07:35] LABS: CALCIUM 8.4 mg/dL (8.5-10.1); CREATININE 0.9 mg/dL (0.7-1.3); POTASSIUM 4.8 mmol/L (3.5-5.1)
[2016-11-18 08:23] VITALS: BP 152/91
[2016-11-18] MEDS ORDERED: CEFUROXIME250 MG PO (08:58)
[2016-11-18] MEDS ORDERED: OXYCODONE HCL 55 MG PO (08:58)
[2016-11-18] MEDS ORDERED: OMEPRAZOLE20 M1 PO (09:06)
[2016-11-19] MEDS ORDERED: AUGMENTIN 875875 MG PO (23:43)
== END 2016-11-18 14:37 | DRG 388 ==
LOC: ER 09:38 → 4E 12:31 → EROBS 12:31 → 4E 13:04
PROVIDERS: Internal Medicine; Nurse Practitioner Family
DX: K56.60 Unspecified intestinal obstruction (principal); G82.50 Quadriplegia, unspecified; L89.154 Pressure ulcer of sacral region, stage 4; L89.314 Pressure ulcer of right buttock, stage 4; L89.623 Pressure ulcer of left heel, stage 3; N39.0 Urinary tract infection, site not specified; E46 Unspecified protein-calorie malnutrition; M86.8X8 Other osteomyelitis, other site; Z68.1 Body mass index [BMI] 19.9 or less, adult; E11.69 Type 2 diabetes mellitus with other specified complication; K21.9 Gastro-esophageal reflux disease without esophagitis; E78.5 Hyperlipidemia, unspecified; I12.9 Hypertensive chronic kidney disease with stage 1 through stage 4 chronic kidney disease, or unspecified chronic kidney disease; N18.9 Chronic kidney disease, unspecified; E03.9 Hypothyroidism, unspecified; R41.89 Other symptoms and signs involving cognitive functions and awareness; I10 Essential (primary) hypertension; E87.5 Hyperkalemia; B96.1 Klebsiella pneumoniae [K. pneumoniae] as the cause of diseases classified elsewhere; B96.4 Proteus (mirabilis) (morganii) as the cause of diseases classified elsewhere; Z89.611 Acquired absence of right leg above knee; Z86.718 Personal history of other venous thrombosis and embolism; Z93.3 Colostomy status; Z79.899 Other long term (current) drug therapy
CPT/HCPCS: 10783

== ENCOUNTER 2016-12-13 20:13 | Inpatient (IN) | payer OTHER ==
[~2016-12-13] VITALS: Ht 165.1 cm; Wt 44.0 kg
--- NOTE | ~2016-12-13 | HC ---
[facility] [place] [address] CONSULTATION Name: SWAPNA LUA Room #: 420-P ADM IN M.R.#: [id number] Admission: 12/14/16 Attend Phys: Ernesto Holguin MD Discharge: Date of : 59 Report #: [id number] THIS REPORT FOR: //name// CC: Ernesto Araya [facility] DATE OF SERVICE: 12/15/2016 CHIEF COMPLAINT: Sacral and ischial pressure ulcers. HISTORY OF PRESENT ILLNESS: This is a 61-year-old male patient with whom I am familiar from wound care service and recent hospitalization. He was readmitted with abdominal pain over the last 3 days with nausea and vomiting. He was noted to have a mid small-bowel obstruction. He also has a history of multiple decubitus ulcers. I have been asked to see him with regard to ongoing wound care. 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 He denies pain at this time today. Positive for history of DVT, quadriplegia with bilateral upper extremity contractures, diverting colostomy, urostomy with neurogenic bladder, urinary tract infection, multiple recurrences of sepsis, diet-controlled diabetes, hypothyroidism, gastroesophageal reflux disease and hyperlipidemia, cognitive deficit and hypertension. MEDICATIONS: Include Lipitor, Lioresal, Remeron, citric acid, Lexapro, milk of magnesia, Unicomplex-M, senna, sodium bicarbonate, albuterol, Biaxin, famotidine, Kingsley. SOCIAL HISTORY: Negative for alcohol or tobacco use. FAMILY HISTORY: Noncontributory. REVIEW OF SYSTEMS: CONSTITUTIONAL: The patient denies fever or chills. ENT: The patient denies earache, nasal drainage, sore throat. CARDIOVASCULAR: The patient denies chest pain or palpitations. PULMONARY: The patient denies cough or shortness of shortness of breath. GASTROINTESTINAL: The patient does complain of nausea, abdominal pain that is improved today. ORTHOPEDIC: The patient is aware of the pressure ulcerations. Other systems in a 12-point review of systems are negative. PHYSICAL EXAMINATION: VITAL SIGNS: At this time include pulse 76, respiration 18, blood pressure , temperature 97.6. [address] [address] CONSULTATION Name: WSAPNA LUA Room #: [facility] IN M.R.#: [id number] Admission: 12/14/16 Attend Phys: Ernesto Holguin MD Discharge: Date of : 59 Report #: [id number] GENERAL: This is a chronically ill-appearing male patient who appears to be in minimal distress. HEAD: Normocephalic. NECK: Supple. LUNGS: Diminished. HEART: Regular rhythm. ABDOMEN: Soft. Bowel sounds are present. Urostomy and colostomy appear to be intact and functioning and there is no evidence of breakdown. EXTREMITIES: Lower extremities demonstrate evidence of previous right hip disarticulation. Pelvic region demonstrates multiple stage 4 pressure ulcers in various stages of healing. These include the sacral region, the left posterior greater trochanter as well as the right ischial tuberosity region. There is some exposed bone in the left ischial tuberosity region. Otherwise, these areas appear to be relatively clean and granulating. There is some dry eschar involving the heel on the left side. CLINICAL IMPRESSION: 1. Stage 4 pressure ulcerations to the sacrum, left posterior greater trochanter and right ischial tuberosity. 2. Unstageable pressure ulcer, left heel. 3. Quadriplegia. 4. History of colostomy, urostomy and ileostomy. RECOMMENDATIONS: At this point in time, we will recommend a silver alginate dressing to the pressure ulcers in the pelvic region to be changed daily, covered with ABD. Recommend Betadine to the left heel eschar to keep it dry and intact, hopefully it will peel off over time once things begin to heel. The patient will need to be turned and repositioned every 2 hours. Continue with aggressive nutritional support. I appreciate being asked to see him in consultation. <ELECTRONICALLY SIGNED> By: Priyank Monroe MD 12/16/1642 21 28 Priyank Monroe MD /nt
--- NOTE | ~2016-12-13 | HC ---
[facility] [place] [address] CONSULTATION Name: SWAPNA LUA Room #: 420-P ADM IN M.R.#: [id number] Admission: 12/14/16 Attend Phys: Ernesto Holguin MD Discharge: Date of : 59 Report #: [id number] THIS REPORT FOR: //name// [facility] DATE OF SERVICE: 12/14/2016 CONSULTATION: Infectious diseases. HISTORY OF PRESENT ILLNESS: The patient is a 61-year-old quadriplegic male admitted through the Emergency Room with a 3-day history of nausea and vomiting. CT scan suggested bowel obstruction. 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 The patient has a complex past medical history. Apparently, he fell down the stairs in 1987 and has been quadriplegic ever since. He suffered the complications from quadriplegia. These include multiple decubitus ulcers. He has required debris and colostomy, diverting urostomy as well as gastrostomy tube to maintain input and output. He has had several severe decubitus ulcers and in July of this year went to for hip disarticulation and high amputation on the right because of uncontrollable decubitus ulcers with osteomyelitis. Other medical diagnoses include deep vein thrombosis, diabetes with hypertension, hyperlipidemia, chronic renal insufficiency, hypothyroidism, gastroesophageal reflux. ALLERGIES: The patient has no drug allergies. MEDICATION RECONCILIATION: Current medications include IV fluids, Lovenox 40 mg subcutaneous, insulin sliding scale, morphine p.r.n., famotidine 10 mg IV b.i.d., Zofran 4 mg p.r.n. FAMILY HISTORY: Noncontributory. SOCIAL HISTORY: The patient is disabled via his quadriplegia and secondary complications. He is a chronic resident of [facility]. He has multiple admissions to [facility] for complications. No history of tobacco nor alcohol. REVIEW OF SYSTEMS: The patient is complaining about his abdominal pain, mostly in the low abdomen on the right. He has had about 5 episodes of nausea with emesis. He denies any trouble breathing. Denies any cognitive changes. He is complaining of some frontal headache, no cough nor congestion. He is not [facility] [address] [place] [address] CONSULTATION Name: SWAPNA LUA Room #: 420-P [facility] IN ..#: [id number] Admission: 12/14/16 Attend Phys: Ernesto Holguin MD Discharge: Date of : 59 Report #: [id number] complaining about pain from his wounds. PHYSICAL EXAMINATION: GENERAL: The patient appears his stated age, alert, uncomfortable, but not in distress. VITAL SIGNS: Show the patient has been afebrile since coming to the hospital. Blood pressure is stable. SKIN: Shows multiple decubitus ulcers as noted in the nursing assessment. The CT scan noted that these wounds involve osteitis if not prashant osteomyelitis. ENT: Shows temporal wasting. NECK: Supple. CARDIOVASCULAR: Heart sounds normal. LUNGS: Clear. ABDOMEN: Belly has the gastrostomy, urostomy and colostomy tubes. There is mild distention and mild tenderness. Bowel sounds are present, but hypoactive. No guarding nor rebound. GENITOURINARY: The genitalia are normal. EXTREMITIES: Show the high amputation on the right, decubitus ulcers on the left heel and left hip. LABORATORY DATA: White count is 7.5, hemoglobin 12. Electrolytes normal. BUN 48, creatinine 1.2. Liver function tests show elevation of alkaline phosphatase at 210, SGOT, SGPT are normal. Lactate is normal. Albumin is 2.5. Urinalysis from the urostomy shows greater than [address] scan shows what is interpreted as small-bowel obstruction and the decubitus ulcers. IMPRESSION: Partial gastrointestinal obstruction. I discussed the case with Dr. Bellamy. The patient has several episodes of emesis and nausea. This has improved with placing his gastrostomy tube to intermittent suction. He did have a bowel movement in the last 24 hours. His belly is not totally normal, but not acute abdomen either. At this time, I do not think the patient has a new significant infection. He has normal temperature, normal white count, and normal lactate. 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 He has chronic decubitus ulcers, which I suspect are intractable. At this time, I would not recommend any further antibiotic therapy unless there is evidence of specific infection. I would not treat the urine unless there are signs of infection above and beyond the abnormal urine from the urostomy. The patient may benefit from intervention if he has low thyroid, low albumin, low zinc levels. If the patient is to be n.p.o. for very many days, we may want to consider for early initiation of intravenous feeding to try to maintain adequate protein stores in light of his tenuous skin condition. I appreciate the opportunity to offer input in the care of this patient. I will [facility] [address] [place] [address] CONSULTATION Name: SWAPNA LUA Room #: 420-P ADM IN M.R.#: [id number] Admission: 12/14/16 Attend Phys: Ernesto Holguin MD Discharge: Date of : 59 Report #: [id number] order some routine labs for wound care and not give any additional antibiotics at this time. Dr. Goyal will return tomorrow for additional followup. Thank you for this consultation. By: 1020 1105 Dorian Mc MD /nt
--- NOTE | ~2016-12-13 | HC ---
[facility] [place] [address] CONSULTATION Name: SWAPNA LUA Room #: 420-P ADM IN M.R.#: [id number] Admission: 12/14/16 Attend Phys: Ernesto Holguin MD Discharge: Date of : 59 Report #: [id number] THIS REPORT FOR: //name// CC: Ernseto Mancuso DATE OF SERVICE: 12/14/2016 REASON FOR CONSULTATION: Small-bowel obstruction. CONSULTING PHYSICIAN: Emergency Department. HISTORY OF PRESENT ILLNESS: The patient is a 61-year-old -[place] male patient well known to General Surgery Service, having seen Dr. Mancuso in April of this past year. He has extensive past medical and past surgical history with previous right hip disarticulation, urostomy in place, quadriplegia, diverting colostomy, chronic ventral incisional hernia, history of DVTs, indwelling gastrostomy tube in place. The patient was brought in on 12/14/2016 through the Emergency Department with 1-day history of nausea and vomiting with multiple episodes. He reportedly had bowel movement per his colostomy earlier that day. He also had complained of some lower crampy abdominal pain. CT scan in the Emergency Department was obtained and this suggested small-bowel obstruction with more proximally dilated loops of small bowel and stomach and more distally decompressed loops. The patient was admitted to the Hospitalist Service and General Surgery was consulted along with Infectious Disease and wound care teams. The patient has history of complex urinary tract infections associated with resistant Gram negative rods. He has history of longstanding decubitus ulcerations with osteomyelitis having previously undergone debridements for these. PAST MEDICAL HISTORY: Positive for fall in 1987 which left him quadriplegic. He subsequently developed multiple decubitus ulcerations requiring debridements and eventually diverting colostomy. He also developed neurogenic bladder dysfunction and then underwent ileal conduit and urostomy formation. He underwent a right hip disarticulation because of the unrelenting decubitus ulcerations which developed into osteomyelitis. This was performed at [facility]. PAST MEDICAL HISTORY: Also positive for gastroesophageal reflux disease, chronic renal insufficiency, hypothyroidism, hyperlipidemia, hypertension, diabetes mellitus, DVT, history of dehydration, previous respiratory failure, previous septic shock, history of Clostridium difficile, history of multidrug resistant pseudomonas, history of cognitive deficit, history of dysphagia. ALLERGIES: No known drug allergies. MEDICATIONS: Upon admission include oxycodone, omeprazole, Augmentin. [address] [address] CONSULTATION Name: SWAPNA LUA Room #: 420-P [facility] IN ..#: [id number] Admission: 12/14/16 Attend Phys: Ernesto Holguin MD Discharge: Date of : 59 Report #: [id number] Reported medications include Lipitor, baclofen, Remeron, Tylenol, Cytra, Lexapro, milk of magnesia, multivitamin supplement, senna, antacid, albuterol, Biaxin. famotidine, Kingsley, previously on Lovenox. SOCIAL HISTORY: Reportedly negative for tobacco, ETOH or drug use. FAMILY HISTORY: Reviewed and noncontributory. PHYSICAL EXAMINATION: GENERAL: The patient is awake and does communicate vocally to some degree. He does follow commands. He reports that he has had 4 or 5 episodes of nausea and vomiting over the past day. HEENT: Head is atraumatic and normocephalic. HEART: Regular. NECK: No jugular venous distention. LUNGS: Coarse bilateral. No respiratory distress, no retractions or accessory muscle use. ABDOMEN: Soft and nontender to palpation at this time. Left-sided colostomy appears viable and pink. Urostomy on the right is intact and well pouched. Good clear urine output noted from urostomy. Left upper quadrant gastrostomy tube is secure and is to suction. This is producing normal-appearing gastric contents, scant decubitus ulcers noted per sacrum in left lower extremity. LABORATORY STUDIES: Reviewed. White count is 7.5, hemoglobin of 12, platelets of 334. Sodium 143, potassium 3.6, BUN of 48, creatinine 1.2, glucose 65, AST 14, ALT of 20, albumin 2.5, alkaline phosphatase of 210. Urinalysis shows 2+ protein, 1+ blood, 3+ leukocyte esterase, 0-3 triple phosphatase crystals. Urine bacteria noted. CT scan of the abdomen and pelvis from December 13 near midnight is reviewed. As described above, this shows dilatation of more proximal loops of small bowel and stomach. Transition point is reported by Radiology. Gastrostomy tube is in place within the body of the stomach. Deep decubitus ulceration over the right ischium down to bone is noted. Left decubitus ulcer to the ischium also noted. Right femur surgically absent. Left-sided descending colon colostomy. Colon is nondistended, small residual rectal pouch is noted. IMPRESSION: A 61-year-old male patient with extensive past medical and past surgical history, with quadriplegia, extensive past decubitus ulcerations requiring multiple debridements and diverting colostomy as well as neurogenic bladder dysfunction requiring ileal conduit and urostomy. Now with suggestion of small-bowel obstruction on CT scan associated with nausea and vomiting. Bowel movements reported from colostomy which appears to be viable and functional. Most likely such an obstructive process would be associated with intraabdominal adhesions which are likely given his extensive past surgical history. RECOMMENDATIONS: 1. Place gastrostomy tube to low intermittent wall suction to decompress the GI tract. 2. Meticulous fluid and electrolyte correction. 3. Agree with antibiotic coverage per infectious disease recommendation, based [facility] [address] [place] [address] CONSULTATION Name: LUASWAPNA Room #: 420-P ADM IN M.R.#: [id number] Admission: 12/14/16 Attend Phys: Ernesto Holguin MD Discharge: Date of : 59 Report #: [id number] upon history of multidrug resistant infections. 4. Agree with wound care consultation given extensive history of decubitus ulcerations. 5. No immediate surgical intervention recommended at this time. Consultation very much appreciated. Will continue to follow clinically and make further recommendations based upon the patient's status. <ELECTRONICALLY SIGNED> By: Dov Bellamy MD 12/14/16 1546 1124 1302 Dov Bellamy MD /nt
[~2016-12-13 20:13] MED LIST changes: +ALBUTEROL2.5 MG/3 M INH; +APAP650 PER TUBE; +AUGMENTIN 875875 MG PO; +CEFUROXIME250 MG PO; +CYTRA-2 ORAL S473 ML PER TUBE; +LEXAPRO 10 MG T10 M1 PER TUBE; +MILK OF MA2400 MG/10 PER TUBE; +OMEPRAZOLE20 M1 PO; +OXYCODONE HCL 55 MG PO; +OXYCODONE HCL15 MG PO; +POLYSACCHARIDE150 MG PO; +SENNA8.6 MG PER TUBE; +UNICOMPLEX M TA1 TA1 PER TUBE
[2016-12-13 20:18] VITALS: BP 145/92
[2016-12-13 22:13] LABS: HEMATOCRIT 40.2 % (42.0-52.0); HEMOGLOBIN 13.2 gm/dL (14.0-18.0); MCH 30.1 pg (26.0-34.0); MCHC 32.8 g/dL (28.0-37.0); MCV 91.7 fL (80.0-100.0); PLATELET COUNT 367 thou/uL (150-400); RBC 4.38 mil/uL (4.50-6.00); RDW 16.6 % (10.5-14.5); WBC 9.7 thou/uL (4.0-11.0)
[2016-12-13 22:14] LABS: MANUAL DIFF YES
[2016-12-13 22:20] LABS: CALCIUM 9.3 mg/dL (8.5-10.1); CREATININE 1.2 mg/dL (0.7-1.3); POTASSIUM 3.5 mmol/L (3.5-5.1)
[2016-12-13 22:26] LABS: ALBUMIN 2.7 g/dL (3.4-5.0); TOTAL BILIRUBIN 0.4 mg/dL (<0.1-1.0); TOTAL PROTEIN 8.9 g/dL (6.4-8.2)
[2016-12-13 22:49] LABS: ANISOCYTOSIS SLIGHT; TOTAL CELL COUNT 100
[2016-12-13 22:50] LABS: LARGE PLATELETS OCCASIONAL
[2016-12-13 23:43] LABS: URINE BILIRUBIN NEGATIVE (Negative); URINE BLOOD 1+ (Negative); URINE COLOR YELLOW; URINE GLUCOSE-RANDOM* NEGATIVE (Negative); URINE KETONES NEGATIVE (Negative); URINE LEUKOCYTES-REFLEX 3+ (Negative); URINE PROTEIN (DIPSTICK) 2+ (Negative); URINE SPECIFIC GRAVITY 1.015 (1.003-1.035); URINE UROBILINOGEN 0.2 E.U./dl (0.2-1.0)
[2016-12-14 00:03] LABS: URINE WBC-REFLEX >25 Many /HPF (0-5)
[2016-12-14 00:04] LABS: CASTS None Seen /LPF (None Seen); SQUAMOUS 0-3 Few /LPF (0-3); URINE RBC 3-10 Few /HPF (0-2)
[2016-12-14] MEDS ORDERED: ACID CONTROLLER20 MG PER TUBE (02:14)
[2016-12-14] MEDS ORDERED: BIAXIN 500 MG500 M2 PER TUBE (02:14)
[2016-12-14] MEDS ORDERED: JUVEN PACKET1 EACH PO (02:15)
[2016-12-14 02:45] VITALS: BP 125/85
[2016-12-14 03:10] VITALS: BP 139/93
[2016-12-14] MEDS ORDERED: AMOXICILLIN 50500 MG PO (04:37)
[2016-12-14] MEDS ORDERED: JUVEN PACKET1 EACH PER TUBE (04:39)
[2016-12-14] MEDS ORDERED: OMEPRAZOLE20 M2 PO (04:44)
[2016-12-14] MEDS ORDERED: OXYCONTIN10 M1 PER TUBE (04:46)
[2016-12-14] MEDS ORDERED: PROBIOTIC1 EAC1 PER TUBE (04:47)
[2016-12-14] MEDS ORDERED: POLYSACCHARIDE150 MG PER TUBE (04:48)
[2016-12-14] MEDS ORDERED: MIRALAX17 GM PO (04:49)
[2016-12-14 07:36] LABS: MCH 29.7 pg (26.0-34.0); MCHC 32.3 g/dL (28.0-37.0); MCV 91.7 fL (80.0-100.0); RBC 4.04 mil/uL (4.50-6.00); RDW 16.7 % (10.5-14.5); WBC 7.5 thou/uL (4.0-11.0)
[2016-12-14 07:40] VITALS: BP 130/77
[2016-12-14 07:47] LABS: ALBUMIN 2.5 g/dL (3.4-5.0); CALCIUM 8.6 mg/dL (8.5-10.1); CREATININE 1.2 mg/dL (0.7-1.3); POTASSIUM 3.6 mmol/L (3.5-5.1); TOTAL BILIRUBIN 0.3 mg/dL (<0.1-1.0); TOTAL PROTEIN 7.9 g/dL (6.4-8.2)
[2016-12-14 15:48] VITALS: BP 134/83
[2016-12-14 19:13] VITALS: BP 114/73
[2016-12-15 03:09] VITALS: BP 100/66
[2016-12-15 05:35] LABS: HEMATOCRIT 33.3 % (42.0-52.0); MCHC 33.2 g/dL (28.0-37.0); MCV 90.3 fL (80.0-100.0); RBC 3.68 mil/uL (4.50-6.00); WBC 4.7 thou/uL (4.0-11.0)
[2016-12-15 05:46] LABS: CALCIUM 8.2 mg/dL (8.5-10.1); CREATININE 0.9 mg/dL (0.7-1.3); POTASSIUM 3.3 mmol/L (3.5-5.1)
[2016-12-15 09:28] VITALS: BP 114/78
[2016-12-15 13:55] LABS: MAGNESIUM 1.6 mg/dL (1.8-2.4); PHOSPHORUS 3.8 mg/dL (2.5-4.9)
[2016-12-15 17:46] VITALS: BP 124/80
[2016-12-15 19:21] VITALS: BP 118/77
[2016-12-16 03:00] VITALS: BP 108/76
[2016-12-16 03:06] LABS: GLYCOHEMOGLOBIN (HGB A1C) 4.7 % (4.8-5.6)
[2016-12-16 05:36] LABS: HEMOGLOBIN 10.8 gm/dL (14.0-18.0); MCH 29.8 pg (26.0-34.0); MCHC 32.6 g/dL (28.0-37.0); MCV 91.3 fL (80.0-100.0); RBC 3.61 mil/uL (4.50-6.00); RDW 17.3 % (10.5-14.5); WBC 4.6 thou/uL (4.0-11.0)
[2016-12-16 05:51] LABS: ALBUMIN 2.2 g/dL (3.4-5.0); CALCIUM 8.2 mg/dL (8.5-10.1); MAGNESIUM 1.6 mg/dL (1.8-2.4); PHOSPHORUS 3.9 mg/dL (2.5-4.9); POTASSIUM 3.4 mmol/L (3.5-5.1); TOTAL BILIRUBIN 0.2 mg/dL (<0.1-1.0); TOTAL PROTEIN 6.9 g/dL (6.4-8.2)
[2016-12-16 08:07] VITALS: BP 119/80
[2016-12-16 17:28] VITALS: BP 112/80
[2016-12-16 20:00] VITALS: BP 116/65
[2016-12-17 04:00] VITALS: BP 134/91
[2016-12-17 06:00] LABS: HEMATOCRIT 34.8 % (42.0-52.0); HEMOGLOBIN 11.3 gm/dL (14.0-18.0); MCH 30.1 pg (26.0-34.0); MCHC 32.5 g/dL (28.0-37.0); MCV 92.4 fL (80.0-100.0); RBC 3.77 mil/uL (4.50-6.00); RDW 17.6 % (10.5-14.5); WBC 6.8 thou/uL (4.0-11.0)
[2016-12-17 06:17] LABS: ALBUMIN 2.3 g/dL (3.4-5.0); CALCIUM 8.5 mg/dL (8.5-10.1); CREATININE 0.9 mg/dL (0.7-1.3); MAGNESIUM 2.5 mg/dL (1.8-2.4); PHOSPHORUS 3.3 mg/dL (2.5-4.9); POTASSIUM 4.1 mmol/L (3.5-5.1); TOTAL BILIRUBIN 0.2 mg/dL (<0.1-1.0); TOTAL PROTEIN 7.4 g/dL (6.4-8.2)
[2016-12-17 12:56] LABS: CALCIUM 8.8 mg/dL (8.5-10.1); MAGNESIUM 2.6 mg/dL (1.8-2.4); PHOSPHORUS 3.7 mg/dL (2.5-4.9); POTASSIUM 4.4 mmol/L (3.5-5.1)
[2016-12-17 17:12] VITALS: BP 117/83
[2016-12-17 19:46] VITALS: BP 126/83
[2016-12-18 03:13] VITALS: BP 116/82
[2016-12-18 06:17] LABS: HEMOGLOBIN 12.1 gm/dL (14.0-18.0); MCH 30.3 pg (26.0-34.0); MCHC 32.7 g/dL (28.0-37.0); MCV 92.6 fL (80.0-100.0); RDW 17.6 % (10.5-14.5); WBC 6.1 thou/uL (4.0-11.0)
[2016-12-18 06:26] LABS: CALCIUM 8.8 mg/dL (8.5-10.1); CREATININE 0.9 mg/dL (0.7-1.3); POTASSIUM 4.5 mmol/L (3.5-5.1)
[2016-12-18 08:53] LABS: MAGNESIUM 2.1 mg/dL (1.8-2.4); PHOSPHORUS 3.3 mg/dL (2.5-4.9)
[2016-12-18 17:04] VITALS: BP 128/86
[2016-12-18 20:00] VITALS: BP 112/87
[2016-12-19 04:06] VITALS: BP 146/101
[2016-12-19 06:04] LABS: HEMATOCRIT 35.7 % (42.0-52.0); HEMOGLOBIN 11.5 gm/dL (14.0-18.0); MCH 29.8 pg (26.0-34.0); MCHC 32.3 g/dL (28.0-37.0); MCV 92.4 fL (80.0-100.0); PLATELET COUNT 278 thou/uL (150-400); RBC 3.87 mil/uL (4.50-6.00); RDW 17.6 % (10.5-14.5); WBC 8.1 thou/uL (4.0-11.0)
[2016-12-19 06:06] LABS: MANUAL DIFF YES
[2016-12-19 06:26] LABS: CALCIUM 8.8 mg/dL (8.5-10.1); CREATININE 0.9 mg/dL (0.7-1.3); MAGNESIUM 1.5 mg/dL (1.8-2.4); PHOSPHORUS 2.9 mg/dL (2.5-4.9); POTASSIUM 4.5 mmol/L (3.5-5.1)
[2016-12-19 07:40] LABS: ABSOLUTE NEUTROPHILS 5.4 thou/uL (1.4-8.2); ANISOCYTOSIS 1+; TOTAL CELL COUNT 100
[2016-12-19 08:34] VITALS: BP 118/71
[2016-12-19 17:34] VITALS: BP 114/81
[2016-12-19 20:07] VITALS: BP 117/87
[2016-12-20 03:40] VITALS: BP 125/77
[2016-12-20 05:53] LABS: CALCIUM 9.3 mg/dL (8.5-10.1); CREATININE 0.9 mg/dL (0.7-1.3); POTASSIUM 5.4 mmol/L (3.5-5.1)
[2016-12-20 05:56] LABS: MAGNESIUM 1.7 mg/dL (1.8-2.4); PHOSPHORUS 4.1 mg/dL (2.5-4.9)
[2016-12-20 11:59] VITALS: BP 134/77
[2016-12-20 16:46] VITALS: BP 104/78
[2016-12-20 19:38] VITALS: BP 97/75
[2016-12-21 03:48] LABS: HEMOGLOBIN 12.4 gm/dL (14.0-18.0); MCH 30.1 pg (26.0-34.0); MCHC 32.6 g/dL (28.0-37.0); MCV 92.4 fL (80.0-100.0); RBC 4.12 mil/uL (4.50-6.00); RDW 18.2 % (10.5-14.5); WBC 7.3 thou/uL (4.0-11.0)
[2016-12-21 03:49] VITALS: BP 94/67
[2016-12-21 03:59] LABS: ALBUMIN 2.5 g/dL (3.4-5.0); PHOSPHORUS 3.7 mg/dL (2.5-4.9); POTASSIUM 5.4 mmol/L (3.5-5.1)
[2016-12-21 12:00] VITALS: BP 135/104
[2016-12-21 17:05] VITALS: BP 94/69
[2016-12-21 20:00] VITALS: BP 110/60; BP 91/59
[2016-12-22 06:07] LABS: HEMATOCRIT 36.1 % (42.0-52.0); HEMOGLOBIN 11.7 gm/dL (14.0-18.0); MCHC 32.2 g/dL (28.0-37.0); MCV 93.1 fL (80.0-100.0); PLATELET COUNT 251 thou/uL (150-400); RBC 3.88 mil/uL (4.50-6.00); RDW 17.6 % (10.5-14.5); WBC 6.5 thou/uL (4.0-11.0)
[2016-12-22 06:09] VITALS: BP 95/62
[2016-12-22 06:14] LABS: CREATININE 0.9 mg/dL (0.7-1.3); MANUAL DIFF YES
[2016-12-22 07:48] VITALS: BP 103/76
[2016-12-22 08:04] VITALS: BP 107/61
[2016-12-22 08:42] LABS: ABSOLUTE NEUTROPHILS 4.2 thou/uL (1.4-8.2); PLATELET ESTIMATE NORMAL; TOTAL CELL COUNT 100
[2016-12-22 20:00] VITALS: BP 94/68
[2016-12-23 04:58] VITALS: BP 123/75
[2016-12-23 08:48] VITALS: BP 105/75
[2016-12-23] MEDS ORDERED: ENOXAPARIN40 MG/0.1 SUBQ (13:06)
== END 2016-12-23 15:52 | DRG 388 ==
LOC: ER 20:13 → 4E 12-14 01:44 → EROBS 12-14 01:44 → 4E 12-14 02:45
PROVIDERS: Emergency Medicine; Family Medicine; Hospitalist; Internal Medicine Endocrinology, Diabetes & Metabolism; Internal Medicine Infectious Disease; Nurse Practitioner Family
PROC: 3E0336Z Introduction of Nutritional Substance into Peripheral Vein, Percutaneous Approach (ICD-10-PCS; principal; 2016-12-15)
PROC: 02HV33Z Insertion of Infusion Device into Superior Vena Cava, Percutaneous Approach (ICD-10-PCS; 2016-12-15)
DX: K56.60 Unspecified intestinal obstruction (principal); E43 Unspecified severe protein-calorie malnutrition; G82.50 Quadriplegia, unspecified; L89.154 Pressure ulcer of sacral region, stage 4; L89.624 Pressure ulcer of left heel, stage 4; L89.324 Pressure ulcer of left buttock, stage 4; M86.60 Other chronic osteomyelitis, unspecified site; E87.0 Hyperosmolality and hypernatremia; Z68.1 Body mass index [BMI] 19.9 or less, adult; K21.9 Gastro-esophageal reflux disease without esophagitis; E03.9 Hypothyroidism, unspecified; N18.9 Chronic kidney disease, unspecified; E11.22 Type 2 diabetes mellitus with diabetic chronic kidney disease; E78.5 Hyperlipidemia, unspecified; I12.9 Hypertensive chronic kidney disease with stage 1 through stage 4 chronic kidney disease, or unspecified chronic kidney disease; Z93.3 Colostomy status; Z93.1 Gastrostomy status; Z89.611 Acquired absence of right leg above knee; Z86.718 Personal history of other venous thrombosis and embolism; Z79.899 Other long term (current) drug therapy; Z93.2 Ileostomy status; Z87.440 Personal history of urinary (tract) infections; Z79.4 Long term (current) use of insulin
CPT/HCPCS: 10183; 27000

== ENCOUNTER 2016-12-27 09:09 | Inpatient (IN) | payer OTHER ==
[2016-12-27] VITALS (15 sets, daily range): BP systolic 81–116; BP diastolic 52–76
[~2016-12-27] VITALS: Ht 177.8 cm; Wt 43.2 kg
--- NOTE | ~2016-12-27 | EKG ---
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 ratliff : 1955 Requested By: Meena Mendoza Order Number: [id number] MD: Michael Gonzales Measurements Intervals [place] Rate: 84 P: 73 CT: 191 QRS: -26 QRSD: 95 T: 64 QT: 390 QTc: 462 Interpretive Statements Sinus rhythm Borderline left axis deviation Borderline low voltage, extremity leads RSR' in V1 or V2, right VCD Compared to ECG 11/11/2016 09:53:15 No significant change was found Electronically Signed On 12-28-2016 13:45:43 CDT by Michael Gonzales [email or web address] <ELECTRONICALLY SIGNED> By: Michael Gonzales MD, [facility] 12/28/16 1345 0937 0937 Michael Gonzales MD, [facility] /EPI
--- NOTE | ~2016-12-27 | HC ---
[facility] [place] [address] CONSULTATION Name: SWAPNA LUA Room #: 303-P ADM IN M.R.#: [id number] Admission: 12/27/16 Attend Phys: Cruz Cabezas MD Discharge: Date of : 59 Report #: [id number] THIS REPORT FOR: //name// CC: Quiana Velvet Cabezas DATE OF SERVICE: 12/27/2016 ATTENDING PHYSICIAN: Dr. Arjun Cabezas. REASON FOR CONSULTATION: Chronic metabolic acidosis. HISTORY OF PRESENT ILLNESS: This unfortunate gentleman has quadriplegia since 1987 after falling down the stairs. Complications have included the development of neurogenic bladder with placement of an ileal conduit with chronic metabolic acidosis, diverting colostomy, chronic and severe decubitus ulcers, requiring most recently disarticulation of the right hip in a very high right leg amputation with chronic infection including osteomyelitis, a heel ulcer on the left with osteomyelitis. He has also had diabetes, hypertension and some degree of CKD at times as well. MEDICATIONS: As best I can tell include before admission, Lipitor 10 mg daily, baclofen 10 mg t.i.d., Remeron 15 mg daily, Lexapro 10 mg daily, milk of magnesia twice daily, vitamins, Pepcid 20 mg daily, omeprazole 20 mg twice daily, oxycodone every 6 hours, iron pills and MiraLax. He is also on Lovenox at the extended care facility. REVIEW OF SYSTEMS: Cannot be taken due to his very confused tenuous mental status. SOCIAL HISTORY: Quadriplegia, lives at [facility]. FAMILY HISTORY: Please see the old charts. PHYSICAL EXAMINATION: GENERAL: This is a chronically ill, wasted-appearing gentleman. He is confused. He is not oriented. He is not answering anything particularly lucidly and his skin is dry and tenting. SKELETAL: Shows high right [id number] amputation and very severe, deep decubitus ulcers in the buttocks and sacral region and left heel. HEENT: Extraocular movements appear to be full. He is looking around and he appears to be able to see. His mucous membranes are moist. NECK: Supple. No carotid bruits or JVD. CHEST: Diminished breath sounds. HEART: Actually regular. ABDOMEN: Some sort of PEG feeding tube, colostomy and urostomy presumably from [address] [address] CONSULTATION Name: SWAPNA LUA Room #: 303-P ADM IN M.R.#: [id number] Admission: 12/27/16 Attend Phys: Cruz Cabezas MD Discharge: Date of : 59 Report #: [id number] the ileal loop. EXTREMITIES: Again, as mentioned above with the right high amputation, extremely contractured left leg, extremely wasted. NEUROLOGIC: Really seems to be able to move his arms around, completely disoriented. LABORATORY DATA: Hemoglobin is 13.1, white count 10.2. Lactate of 1.0. Sodium 140, potassium 5.6, chloride 111. Bicarbonate is 12, had been running about 15. ASSESSMENT AND PLAN: 1. Chronic metabolic acidosis from his ileal loop, now appears to be volume depleted. Creatinine is up a little bit. He may have recurrent bowel obstruction as well. Intravenous fluids with bicarbonate should take care of this situation. This is hyperchloremic. The lactic acid is not elevated, does not appear to be septic, but also obviously maybe infected. He has had multiple ____ in the past. 2. Quadriplegia. 3. Multiple severe sacral decubitus ulcers with osteomyelitis. 4. 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 5. History of diabetes. 6. History of hypertension, now hypotensive. DICTATION ENDS HERE <ELECTRONICALLY SIGNED> By: Lexa Munoz MD 12/30/16 1155 1754 [id number] Lexa Munoz MD /nt
--- NOTE | ~2016-12-27 | H ---
[facility] [place] [address] HISTORY AND PHYSICAL Name: SWAPNA LUA Room #: 303-P ADM IN M.R.#: [id number] Admission: 12/27/16 Attend Phys: Cruz Cabezas MD Discharge: Date of : 59 Report #: [id number] THIS REPORT FOR: //name// CC: Quiana Cabezas DATE OF SERVICE: 12/27/2016 CHIEF COMPLAINT: Acute mental status changes, sepsis. HISTORY OF PRESENT ILLNESS: The nurse at the [facility] where he lives called and reported that he was mumbling and hollering out nonsensically. Ordinarily, he is able to hold meaningful conversation. Because of this, he was evaluated in the Emergency Room. In the Emergency Room, he was found to be alert but nonverbal according to the physician's assistant operator. He was found to have an acute metabolic acidosis with a pH of 7.07. His creatinine had jumped from 0.9 to 1.6. His albumin had jumped from 2.3 to 2.9, also indicating volume depletion. His hemoglobin jumped to 13.1 from 11.7. His white blood cell count was normal at 10.2 thousand, but he had 85% neutrophils. His temperature was 90.0 reported by the ICU nurse when she started the "Bear Hugger" for rewarming him. PAST MEDICAL HISTORY: Significant for multiple medical problems. He was recently admitted for a small-bowel obstruction caused by intraabdominal adhesions that resolved without surgical intervention. He has quadriplegia, he has multiple decubitus ulcers. He had a diverting colostomy to keep his posterior ulcers clean. He has neurogenic bladder requiring an ileal conduit and urostomy. He has type 2 diabetes, hypertension, severe protein-calorie malnutrition and GERD. He has had a right pbfyg-drp-hsir amputation. His left heel has a decubitus ulcer with osteomyelitis as well. He has had septic shock in the past. He has had chronic kidney disease and acute renal injury, followed by the Nephrology service. MEDICATIONS: His current medication list was not sent with him to the Emergency Room. Instead, the discharge order sheet dated 12/23/2016 was sent and is as follows: Lovenox 40 mg once daily, atorvastatin 10 mg daily, baclofen 10 mg by gastric tube 3 times daily, mirtazapine 15 mg daily, acetaminophen by tube p.r.n., citric acid solution by tube twice daily for urinary tract infection, escitalopram 10 mg once daily, milk of magnesia by tube if needed for constipation, multiple vitamins once daily, sennosides by tube once daily, albuterol by nebulizer 3 times daily, famotidine 20 mg by tube once daily, omeprazole twice daily, OxyContin 5 mg by tube every 6 hours as needed for pain, lactobacillus by tube once daily, iron complex by tube twice daily and MiraLax once daily. SOCIAL HISTORY: He does not drink nor smoke, [place] [address] HISTORY AND PHYSICAL Name: SWAPNA LUA Room #: 303-P ADM IN M.R.#: [id number] Admission: 12/27/16 Attend Phys: Cruz Cabezas MD Discharge: Date of : 59 Report #: [id number] facility. His code status is "full code blue." ALLERGIES: None known. REVIEW OF SYSTEMS: Not obtainable. PHYSICAL EXAMINATION: GENERAL: Shows a chronically ill-appearing male. He responds briefly to having his name called. He did say he was "okay" and then back to sleep. His body is covered by the Bear Hugger air-warming device. LUNGS: Clear. CARDIOVASCULAR: His heart tones were normal. ABDOMEN: Soft and nontender. His bowel sounds were quiet. EXTREMITIES: There is no edema in his left leg, and he has a right [id number]-iyh-rplq amputation. Please see the nursing staff's complete documentation of his multiple decubitus ulcers including a large one in the sacral area with detailed photographs. ASSESSMENT: 1. Sepsis -- likely source is one of many decubitus ulcers as well as urinary tract source. 2. Abnormal urinalysis suggesting a urinary tract infection. 3. Multiple decubitus ulcers that are extensive and some with osteomyelitis underlying. 4. Acute kidney injury with a dramatic increase in his creatinine. 5. Metabolic acidosis with a pH of 7.07. 6. Volume depletion with an elevated albumin and elevated hemoglobin as well as elevated creatinine. 7. Suspect severe sepsis with a low axillary temperature recorded in the intensive care unit reported by the intensive care unit nurses to be 90 degrees. 8. Other multiple medical problems on his recent record. 9. A KUB is nonspecific, and it appears that his recent small-bowel obstruction from adhesions remains resolved. PLAN: He is being followed by the nephrology service with intravenous bicarb infusion as well as IV fluids. He is being followed by the Infectious Disease Service for his multiple infections. He remains a full code blue. By: [id number] Cruz Cabezas MD /nt
--- NOTE | ~2016-12-27 | HC ---
[facility] [place] [address] CONSULTATION Name: SWAPNA LUA Room #: 243-P ADM IN M.R.#: [id number] Admission: 12/27/16 Attend Phys: Cruz Cabezas MD Discharge: Date of : 59 Report #: [id number] THIS REPORT FOR: //name// CC: Quiana Alanizjeswillie Cruz Cabezas DATE OF SERVICE: 12/28/2016 ATTENDING PHYSICIAN: Cruz Cabezas MD. REASON FOR CONSULTATION: Question UTI. HISTORY OF PRESENT ILLNESS: The patient is a 61-year-old white man, resident of a local retirement, readmitted to the hospital through the Emergency Room with altered mental status and some hypothermia. Currently, the patient in the ICU with warming blanket and when I queried him about pain, all he can tell me is " ." Anyway, the patient is well known to me from multiple previous hospitalizations at [facility] and currently on treatment with Zosyn. PAST MEDICAL HISTORY: Quadriplegia. Diverting colostomy. Ileal conduit with obvious abnormal urinalysis all the time. 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 DVT right upper extremity. Cognitive impairment. Hypertension. DRUG ALLERGIES: None listed. MEDICATIONS: Currently, on insulin, famotidine, fentanyl p.r.n., glucagon and glucose p.r.n., sodium bicarbonate infusion, Zosyn 3.375 grams IV every 8 hours, insulin release per sliding scale. SOCIAL HISTORY: See H and P old records. FAMILY HISTORY: See H and P old records. REVIEW OF SYSTEMS: Unable to obtain. PHYSICAL EXAMINATION: GENERAL: Chronically ill-appearing black man hypothermic. VITAL SIGNS: Temperature 94.4, currently 97. Blood pressure 99/70, respirations 14, pulse 90. HEENMT: Within range. NECK: Stiff, the patient is stiff all over. LUNGS: Clear to auscultation. HEART: S1, S2. No gallop or murmur. [facility] [address] [place] [address] CONSULTATION Name: SWAPNA LUA Room #: 243-P [facility] IN ..#: [id number] Admission: 12/27/16 Attend Phys: Cruz Cabezas MD Discharge: Date of : 59 Report #: [id number] ABDOMEN: Surgical scars left-sided diverting colostomy, right-sided ileal conduit with urine. NEUROLOGIC: Quadriplegia, sacral decubitus deferred. EXTREMITIES: Reveal right AKA, possible hip disarticulation. LABORATORY DATA: Sodium 148; potassium 3.3, was 5.6 on admission; CO2 17; BUN 43; creatinine 1.5. Azotemia improving with fluids, glucose 226. Albumin 2 g/dL. WBC was 10,200 yesterday, today is 20,200; hemoglobin 9.5 g/dL and on admission was 13.1 indicating dehydration; platelets 258,000. The urinalysis revealed pH 8.5, 3+ protein, 2+ bilirubin, 2+ blood, 3+ leukocyte esterase. The microscopic exam revealed pyuria, hematuria and bacteriuria. ABGs on admission revealed pH 7.07, pCO2 of 32, PO2 of 107, bicarbonate 9.4, lactate normal. MICROBIOLOGY DATA: Pending. RADIOLOGY EVALUATION: Chest x-ray, no infiltrates. ASSESSMENT: 1. Altered mental status secondary to sepsis versus significant electrolyte imbalance. 2. Metabolic acidosis secondary to ileal conduit. 3. Abnormal urinalysis secondary to ileal conduit. 4. Quadriplegia. 5. Stage IV sacral and ischial decubitus osteomyelitis. 6. 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 7. Anemia of chronic disease. 8. Dehydration improving. 9. Acute kidney injury, improving. SUGGESTIONS: Recommend continued fluid resuscitation, sodium bicarbonate and Zosyn. Dr. Cabezas, thank you for requesting my suggestions. <ELECTRONICALLY SIGNED> By: Maurice Watson MD 12/29/16 0943 [id number] Maurice Watson MD /nt
--- NOTE | ~2016-12-27 | HC ---
[facility] [place] [address] CONSULTATION Name: SWAPNA LUA Room #: 303-P ADM IN M.R.#: [id number] Admission: 12/27/16 Attend Phys: Cruz Cabezas MD Discharge: Date of : 59 Report #: [id number] THIS REPORT FOR: //name// CC: Rocaelshikha Velvet Cabezas DATE OF SERVICE: 12/29/2016 TYPE OF REPORT: Wound care consultation. PERSONAL PHYSICIAN: Cruz Cabezas M.D. CHIEF COMPLAINT: Bilateral ischial and sacral decubitus ulcers. HISTORY OF PRESENT ILLNESS: This is an elderly black male who has been quadriplegic for several years after falling downstairs. The patient most recently was hospitalized for urinary tract infection. The patient has chronic ulcerations on the bilateral ischial regions as well as his sacrococcygeal region, all consistent with stage 4 ulcers. 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 The patient has now currently been hospitalized for urinary tract infection. The patient denies any actual pain at this time. PAST MEDICAL HISTORY: Significant for quadriplegic multiple decubitus ulcers. The patient is status post diverting colostomy, history of the hip disarticulation secondary to osteomyelitis, history of diabetes, hypertension and chronic kidney disease. CURRENT MEDICATIONS: Multiple, I reviewed the patient's medication list. DRUG ALLERGIES: None. SOCIAL HISTORY: The patient is a quadriplegic, lives in a halfway. FAMILY HISTORY: Not pertinent to current medical condition. REVIEW OF SYSTEMS: The patient is somewhat confused and at this time, is unable to give me a good review of systems. PHYSICAL EXAMINATION: VITAL SIGNS: Temperature 36.7, pulse 71, respirations 20 and BP 139/80. GENERAL: This is alert and oriented x1 to person but not to place or time, elderly black male who is in no acute distress. HEENT: Normocephalic and atraumatic. Mucous membranes are dry. Pupils are round. Sclerae white. NECK: Supple. [facility] [address] [place] [address] CONSULTATION Name: SWAPNA LUA Room #: 303-P ADM IN M.R.#: [id number] Admission: 12/27/16 Attend Phys: Cruz Cabezas MD Discharge: Date of : 59 Report #: [id number] LUNGS: Slightly diminished breath sounds heard throughout. Occasional scattered wheeze. HEART: Regular, without murmur. ABDOMEN: Soft and nontender. EXTREMITIES: Evaluation of right lower extremity reveals above and essentially, a right hip disarticulation, which suture line is well healed and evaluation of sacrococcygeal region reveals a stage 4 decubitus ulcers on sacrococcygeal and bilateral ischial regions with exposed bone and these are fairly clean and granulating. There are no signs of significant odor. There is, however, serosanguineous drainage, which is mild to moderate. Periulcers themselves are intact without signs of cellulitis. Evaluation of the left lower extremity reveals a deep tissue injury on the left heel, which is warm and dry eschar that is intact. No other associated ulcerations are noted. NEUROLOGICAL: Cranial nerves 2 through 12 grossly intact. Motor and sensory grossly intact. LABORATORY DATA: White count 10.9 and hemoglobin 8.6. Hemoglobin A1c is 4.7. Albumin is 2.0. IMPRESSION: 1. Chronic stage 4 sacrococcygeal decubitus ulcer. 2. Present on admission. 3. Chronic bilateral stage 4 decubitus ulcers in the ischial regions, present on admission. 4. 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 5. Diabetes mellitus. 6. Urinary tract infection. 7. Generalized debility. 8. Protein-calorie malnutrition - severe with albumin of 2.0. PLAN: At this time, we will start sacral foam border to the sacral region as well as Maxorb AG to the bilateral ischial ulcerations. We will have these changed daily. The patient will be placed on low air-loss mattress, having turned every 2 hours. We will use Betadine to the left heel changes daily. Leave this opened to air. We will make sure we maximize the patient's protein supplementation for healing and continue all other current medications. I appreciate the ability to consult. Continue to follow the patient. By: [id number] Joe Daniel MD /radhika
[~2016-12-27 09:09] MED LIST changes: +ACID CONTROLLER20 MG PER TUBE; +AMOXICILLIN 50500 MG PO; +BIAXIN 500 MG500 M2 PER TUBE; +JUVEN PACKET1 EACH PER TUBE; +MIRALAX17 GM PO; +OMEPRAZOLE20 M2 PO; +OXYCONTIN10 M1 PER TUBE; +POLYSACCHARIDE150 MG PER TUBE; +PROBIOTIC1 EAC1 PER TUBE
[2016-12-27 09:34] LABS: ABG SAMPLE TYPE ARTERIAL; BE(vivo) -19.5 mmol/L (-2 to +3); HCO3 9.4 mmol/L (22.0-26.0); LACTATE 1.07 mmol/L (0.5-2.0); O2(CT) 18.4 mL/dL (15.0-23.0); O2Hb 96.9 % (92.0-98.0); PCO2 32.7 mmHg (35.0-45.0); PO2 107.9 mmHg (80.0-100.0); STICK SITE R.RADIAL; pH 7.077 (7.360-7.450); sO2 95.8 % (92.0-98.0); tCO2 10.4 mmol/L (24.0-30.0)
[2016-12-27 10:10] LABS: HEMATOCRIT 40.6 % (42.0-52.0); HEMOGLOBIN 13.1 gm/dL (14.0-18.0); MANUAL DIFF YES; MCH 30.4 pg (26.0-34.0); MCHC 32.3 g/dL (28.0-37.0); MCV 94.2 fL (80.0-100.0); PLATELET COUNT 360 thou/uL (150-400); RBC 4.31 mil/uL (4.50-6.00); WBC 10.2 thou/uL (4.0-11.0)
[2016-12-27 10:19] LABS: CALCIUM 9.2 mg/dL (8.5-10.1); CREATININE 1.6 mg/dL (0.7-1.3); POTASSIUM 5.6 mmol/L (3.5-5.1)
[2016-12-27 10:25] LABS: ALBUMIN 2.9 g/dL (3.4-5.0); TOTAL BILIRUBIN 0.3 mg/dL (<0.1-1.0); TOTAL PROTEIN 8.5 g/dL (6.4-8.2)
[2016-12-27 10:40] LABS: ABSOLUTE NEUTROPHILS 8.7 thou/uL (1.4-8.2); ANISOCYTOSIS 1+; TOTAL CELL COUNT 100
[2016-12-27 10:41] LABS: POIKILOCYTOSIS SLIGHT; POLYCHROMASIA OCCASIONAL
[2016-12-27 10:52] LABS: URINE BILIRUBIN 2+ (Negative); URINE BLOOD 2+ (Negative); URINE COLOR YELLOW; URINE GLUCOSE-RANDOM* NEGATIVE (Negative); URINE KETONES NEGATIVE (Negative); URINE NITRITE NEGATIVE (Negative); URINE PROTEIN (DIPSTICK) 3+ (Negative); URINE UROBILINOGEN 0.2 E.U./dl (0.2-1.0)
[2016-12-27 10:53] LABS: ICTOTEST (BILI CONFIRMATORY) Negative (Negative)
[2016-12-27 10:58] LABS: BACTERIA >30 Many /HPF (None Seen); CASTS None Seen /LPF (None Seen); SQUAMOUS None Seen /LPF (0-3); URINE RBC 3-10 Few /HPF (0-2); URINE WBC >25 Many /HPF (0-5)
[2016-12-27 19:37] LABS: URINE CREATININE-RANDOM* 17.6 mg/dL
[2016-12-28] VITALS (28 sets, daily range): BP systolic 69–95; BP diastolic 43–66
[2016-12-28 06:15] LABS: HEMATOCRIT 28.8 % (42.0-52.0); MCH 30.7 pg (26.0-34.0); MCHC 33.1 g/dL (28.0-37.0); MCV 92.6 fL (80.0-100.0); RBC 3.11 mil/uL (4.50-6.00); RDW 17.4 % (10.5-14.5); WBC 20.2 thou/uL (4.0-11.0)
[2016-12-28 06:23] LABS: CALCIUM 7.5 mg/dL (8.5-10.1); CREATININE 1.5 mg/dL (0.7-1.3); MAGNESIUM 1.4 mg/dL (1.8-2.4); PHOSPHORUS 3.1 mg/dL (2.5-4.9)
[2016-12-28 06:27] LABS: POTASSIUM 3.3 mmol/L (3.5-5.1)
[2016-12-28 06:31] LABS: HEMOGLOBIN 9.5 gm/dL (14.0-18.0); MANUAL DIFF YES; PLATELET COUNT 258 thou/uL (150-400)
[2016-12-28 07:08] LABS: HEMATOCRIT 28.2 % (42.0-52.0); HEMOGLOBIN 9.5 gm/dL (14.0-18.0); MCH 30.8 pg (26.0-34.0); MCHC 33.7 g/dL (28.0-37.0); MCV 91.2 fL (80.0-100.0); PLATELET COUNT 260 thou/uL (150-400); RBC 3.09 mil/uL (4.50-6.00); RDW 17.2 % (10.5-14.5)
[2016-12-28 07:09] LABS: MANUAL DIFF YES
[2016-12-28 07:15] LABS: ABSOLUTE NEUTROPHILS 19.4 thou/uL (1.4-8.2); PLATELET ESTIMATE NORMAL; TOTAL CELL COUNT 100
[2016-12-28 07:19] LABS: CALCIUM 7.6 mg/dL (8.5-10.1); CREATININE 1.5 mg/dL (0.7-1.3); MAGNESIUM 1.5 mg/dL (1.8-2.4); PHOSPHORUS 3.2 mg/dL (2.5-4.9); POTASSIUM 3.4 mmol/L (3.5-5.1)
[2016-12-28 07:43] LABS: ABSOLUTE NEUTROPHILS 20.2 thou/uL (1.4-8.2); PLATELET ESTIMATE NORMAL; TOTAL CELL COUNT 100
[2016-12-28 09:01] LABS: ABG SAMPLE TYPE ARTERIAL; BE(vivo) -10.6 mmol/L (-2 to +3); HCO3 15.2 mmol/L (22.0-26.0); LACTATE 3.56 mmol/L (0.5-2.0); O2(CT) 13.2 mL/dL (15.0-23.0); O2Hb 96.3 % (92.0-98.0); PCO2 33.4 mmHg (35.0-45.0); PO2 98.1 mmHg (80.0-100.0); STICK SITE R.RADIAL; pH 7.277 (7.360-7.450); sO2 96.7 % (92.0-98.0); tCO2 16.3 mmol/L (24.0-30.0)
[2016-12-29] VITALS (25 sets, daily range): BP systolic 96–163; BP diastolic 54–113
[2016-12-29 06:55] LABS: HEMATOCRIT 25.6 % (42.0-52.0); HEMOGLOBIN 8.6 gm/dL (14.0-18.0); MCH 30.7 pg (26.0-34.0); MCHC 33.6 g/dL (28.0-37.0); MCV 91.4 fL (80.0-100.0); RBC 2.8 mil/uL (4.50-6.00); RDW 17.8 % (10.5-14.5); WBC 10.9 thou/uL (4.0-11.0)
[2016-12-29 07:14] LABS: ALBUMIN 1.8 g/dL (3.4-5.0); CALCIUM 7.9 mg/dL (8.5-10.1); PHOSPHORUS 2.4 mg/dL (2.5-4.9)
[2016-12-29 07:23] LABS: POTASSIUM 2.9 mmol/L (3.5-5.1)
[2016-12-30] VITALS (10 sets, daily range): BP systolic 121–151; BP diastolic 80–98
[2016-12-30 06:51] LABS: HEMATOCRIT 27.6 % (42.0-52.0); HEMOGLOBIN 9.2 gm/dL (14.0-18.0); MCH 30.5 pg (26.0-34.0); MCHC 33.4 g/dL (28.0-37.0); MCV 91.3 fL (80.0-100.0); RBC 3.03 mil/uL (4.50-6.00); RDW 17.8 % (10.5-14.5); WBC 7.5 thou/uL (4.0-11.0)
[2016-12-30 07:05] LABS: CALCIUM 7.9 mg/dL (8.5-10.1); CREATININE 1.1 mg/dL (0.7-1.3); PHOSPHORUS 2.5 mg/dL (2.5-4.9)
[2016-12-30 07:06] LABS: POTASSIUM 3.9 mmol/L (3.5-5.1)
[2016-12-31 02:30] VITALS: BP 143/82
[2016-12-31 07:08] LABS: ALBUMIN 1.9 g/dL (3.4-5.0); CALCIUM 8.2 mg/dL (8.5-10.1); PHOSPHORUS 1.8 mg/dL (2.5-4.9)
[2016-12-31 07:18] LABS: POTASSIUM 5.1 mmol/L (3.5-5.1)
[2016-12-31 08:39] VITALS: BP 131/68
[2016-12-31 16:35] VITALS: BP 112/70
[2016-12-31 19:19] VITALS: BP 106/69
[2017-01-01 04:31] VITALS: BP 111/59
[2017-01-01 08:45] VITALS: BP 123/79
[2017-01-01] MEDS ORDERED: ZOSYN 3.3753.375 GM IV (11:01)
[2017-01-01 16:43] VITALS: BP 135/79
== END 2017-01-01 18:32 | DRG 871 ==
LOC: ER 09:09 → EROBS 12:26 → ICU 12:26 → 3N 12-30 06:06
PROVIDERS: Internal Medicine; Internal Medicine Nephrology; Physician Assistant
DX: A41.9 Sepsis, unspecified organism (principal); L89.154 Pressure ulcer of sacral region, stage 4; G82.50 Quadriplegia, unspecified; E43 Unspecified severe protein-calorie malnutrition; N39.0 Urinary tract infection, site not specified; N17.9 Acute kidney failure, unspecified; M86.9 Osteomyelitis, unspecified; Z68.1 Body mass index [BMI] 19.9 or less, adult; E11.69 Type 2 diabetes mellitus with other specified complication; I12.9 Hypertensive chronic kidney disease with stage 1 through stage 4 chronic kidney disease, or unspecified chronic kidney disease; N18.9 Chronic kidney disease, unspecified; K21.9 Gastro-esophageal reflux disease without esophagitis; D50.9 Iron deficiency anemia, unspecified; E11.22 Type 2 diabetes mellitus with diabetic chronic kidney disease; E78.5 Hyperlipidemia, unspecified; E03.9 Hypothyroidism, unspecified; D63.8 Anemia in other chronic diseases classified elsewhere; E86.0 Dehydration; E87.5 Hyperkalemia; T68.XXXA Hypothermia, initial encounter; Z89.611 Acquired absence of right leg above knee; Z86.718 Personal history of other venous thrombosis and embolism; Z93.3 Colostomy status; Z79.899 Other long term (current) drug therapy
CPT/HCPCS: 10078; 10096; 27000; 27001

== ENCOUNTER 2017-01-17 13:15 | Inpatient (IN) | payer OTHER ==
[~2017-01-17] VITALS: Ht 165.1 cm; Wt 45.4 kg
[2017-01-17] VITALS (26 sets, daily range): BP systolic 76–126; BP diastolic 58–86
--- NOTE | ~2017-01-17 | HC ---
[facility] [place] [address] CONSULTATION Name: SWAPNA LUA Room #: 238-P ADM IN M.R.#: [id number] Admission: 01/17/17 Attend Phys: Corbin Clemons MD Discharge: Date of : 59 Report #: [id number] THIS REPORT FOR: //name// CC: Corbin Verdin HISTORY OF PRESENT ILLNESS: The patient is a patient known to our service, and this is a readmission note. This is a 61-year-old male patient who I have seen today in the ICU. He was originally scheduled for a PEG tube replacement but was noted to be hypotensive and was admitted for evaluation of possible underlying sepsis. He has a history of stage IV pressure ulcerations to the sacral and ischial region. I have been asked again to see him with regard to ongoing wound care. The patient is alert. He denies any pain at this time and is watching television. PAST MEDICAL HISTORY: Positive for history of quadriplegia, history of colostomy and urostomy. Has a history of a right above-knee amputation and right hip disarticulation. He has a chronic ulceration to the sacral and ischial region bilaterally. The patient has a history of a DVT, cognitive deficit and hypertension. MEDICATIONS: Include Zosyn, Lovenox, Lipitor, Lioresal, Remeron, milk of magnesia, senna, OxyContin, probiotic and MiraLax. REVIEW OF SYSTEMS: Unobtainable due to the patient's level of communication. SOCIAL HISTORY: Negative for alcohol or tobacco use. FAMILY HISTORY: Noncontributory. PHYSICAL EXAMINATION: VITAL SIGNS: At this time include respiratory rate 13, blood pressure 115/87, temperature of 96.4, pulse 84. GENERAL: This is a chronically ill-appearing male patient who appears to be in no obvious distress. HEENT: Head normocephalic. Nose and throat are clear. NECK: Supple. LUNGS: Diminished. ABDOMEN: Soft. Urostomy and colostomy noted to be functioning. PELVIC: Examination of the pelvic region demonstrates what appears to be stage IV pressure ulcerations at the sacral and extending into the ischiogluteal region bilaterally. These are actually improved since I last saw him, showing some evidence of new epithelialization. They are not overtly infected. He has evidence of prior right hip disarticulation. LABORATORY DATA: Includes sodium 138, potassium 3.6, chloride 112, CO2 of 16, BUN 14, creatinine 0.7. White blood cell count 6.5 with a hemoglobin of 9.2, [address] [address] CONSULTATION Name: SWAPNA LUA Room #: 238[facility] IN M.R.#: [id number] Admission: 01/17/17 Attend Phys: Corbin Clemons MD Discharge: Date of : 59 Report #: [id number] hematocrit of 27.0 and platelet count 412,000. Differential: 70 segmented neutrophils, 12 lymphocytes, 10 monocytes, 5 eosinophils, 1 basophil. CLINICAL IMPRESSION: 1. Stage IV sacral and ischial pressure ulcerations. 2. Quadriplegia. RECOMMENDATIONS: At this point in time, as there is a small amount of green drainage, I will recommend a 1/4 strength Dakin's moist gauze dressing to be changed daily and covered with ABD. He will need a low air loss mattress, turning and repositioning every 2 hours and continued nutritional support. I appreciate being asked to see him in consultation. <ELECTRONICALLY SIGNED> By: Priyank Monroe MD 01/20/17 1719 [id number] [id number] Priyank Monroe MD /nt
--- NOTE | ~2017-01-17 | HC ---
[facility] [address] CONSULTATION Name: SWAPNA LUA Room #: 238-P ADM IN M.R.#: [id number] Admission: 01/17/17 Attend Phys: Corbin Clemons MD Discharge: Date of : 59 Report #: [id number] THIS REPORT FOR: //name// CC: [facility] REASON FOR CONSULTATION: I was asked to evaluate concerning septic shock. HISTORY OF PRESENT ILLNESS: The patient was a 61-year-old incomplete quadriplegic gentleman with ongoing pelvic wounds. He had underlying osteomyelitis. He actually underwent a high AKA earlier this year. He has been in and out of the hospital frequently for wound care, sepsis episodes, urinary tract infection and wound care. He does have a colostomy, urostomy and a PEG tube. There have been issues with leakage around his G tube for the past several days. He began having hypotensive episodes and he was admitted to the emergency room this afternoon for this. No fever, chills or sweats. No cough or sputum production. No nausea or vomiting. His output from his colostomy has been adequate. ALLERGIES: None. MEDICATIONS: As noted on his JUL, which were reviewed. Now on vancomycin and meropenem. PAST MEDICAL HISTORY: Unchanged from history and physical and that of my previous consultations. FAMILY HISTORY: Unchanged from history and physical and that of my previous consultations. SOCIAL HISTORY: Unchanged from history and physical and that of my previous consultations. PHYSICAL EXAMINATION: VITAL SIGNS: Temperature 96.4, blood pressure dropped down into the 70s systolic, now up to 98/72 with a MAP of 80. Oxygen saturation was normal on room air. GENERAL: He was alert and cooperative. A right IJ catheter was just placed. LUNGS: Clear. HEART: Regular. ABDOMEN: Soft. There was a small amount of drainage around his G-tube. His ileal conduit and colostomy were functioning well. He did have muscle spasms with palpating his abdomen, which is typical for him. His posterior pelvic wounds were relatively clean, he did have some serous drainage, but no purulence. There was no tunneling or evidence of bony exposure. His right AKA stump was unremarkable. [facility] [address] [place] [address] CONSULTATION Name: SWAPNA LUA Room #: [facility] IN .R.#: [id number] Admission: 01/17/17 Attend Phys: Corbin Clemons MD Discharge: Date of : 59 Report #: [id number] LABORATORY STUDIES: Hemoglobin 9.1, WBC 5.6, platelet count 385,000. Differential was unremarkable. Sodium 137, potassium 3.6, bicarbonate is 17, creatinine 0.9, lipase 116. Liver function test normal except for an alkaline phosphatase of 224, lactate 0.8. CT scan of the abdomen and pelvis noted is gastrostomy position was intact, although the jejunal portion is folded into the stomach. This was felt most likely due to the alignment of the gastrostomy catheter itself. There was no evidence of bowel obstruction or free air. Hydronephrosis has increased slightly involving both kidneys. No evidence of intraabdominal abscess, bilateral decubiti to the pelvis are also noted. Urinalysis had moderate WBCs and bacteria. IMPRESSION: Hypotension, likely related to fluid shifts, question whether he has some dehydration. He is very temperamental in regards to fluids. So far, does not appear to have any pulmonary source. He may need his feeding GJ tube adjusted. I would recommend that we continue his wound care. I will continue broad spectrum antibiotic coverage pending culture results. We will see how he does over the next 24 hours before advising any change in his program. Therefore, we will begin sepsis protocol. I have discussed the case with nursing staff who is in attendance. We will monitor him in the intensive care unit overnight and continue with broad antibiotic coverage. <ELECTRONICALLY SIGNED> By: Michael Goyal MD 01/20/17 0851 [id number] Michael Goyal MD /nt
[~2017-01-17 13:15] MED LIST changes: +ZOSYN 3.3753.375 GM IV
[2017-01-17 14:57] LABS: ABSOLUTE NEUTROPHILS 3.9 thou/uL (1.4-8.2); BASOPHILS 1.1 % (0.0-2.0); EOSINOPHILS 6.7 % (0.0-3.0); HEMOGLOBIN 9.1 gm/dL (14.0-18.0); LYMPHOCYTES 13.8 % (24.0-44.0); MANUAL DIFF NO; MCHC 32.7 g/dL (28.0-37.0); MCV 91.8 fL (80.0-100.0); MONOCYTES 8.9 % (1.0-8.0); PLATELET COUNT 385 thou/uL (150-400); POLYS 69.5 % (36.0-66.0); RBC 3.05 mil/uL (4.50-6.00); RDW 17.3 % (10.5-14.5); WBC 5.6 thou/uL (4.0-11.0)
[2017-01-17 15:04] LABS: CALCIUM 8.4 mg/dL (8.5-10.1); CREATININE 0.9 mg/dL (0.7-1.3); POTASSIUM 3.6 mmol/L (3.5-5.1)
[2017-01-17 15:09] LABS: ALBUMIN 1.9 g/dL (3.4-5.0); TOTAL BILIRUBIN 0.2 mg/dL (<0.1-1.0); TOTAL PROTEIN 6.9 g/dL (6.4-8.2)
[2017-01-17 18:07] LABS: URINE BILIRUBIN NEGATIVE (Negative); URINE BLOOD 1+ (Negative); URINE GLUCOSE-RANDOM* NEGATIVE (Negative); URINE KETONES NEGATIVE (Negative); URINE LEUKOCYTES-REFLEX 3+ (Negative); URINE PROTEIN (DIPSTICK) TRACE (Negative); URINE SPECIFIC GRAVITY <= 1.005 (1.003-1.035); URINE UROBILINOGEN 0.2 E.U./dl (0.2-1.0)
[2017-01-17 18:08] LABS: URINE COLOR LIGHT YELLOW
[2017-01-17 18:10] LABS: SQUAMOUS None Seen /LPF (0-3)
[2017-01-17 18:11] LABS: CASTS None Seen /LPF (None Seen); CRYSTALS None Seen /LPF (None Seen); URINE RBC 3-10 Few /HPF (0-2)
[2017-01-17 21:23] LABS: BASOPHILS 1.1 % (0.0-2.0); HEMATOCRIT 28.7 % (42.0-52.0); HEMOGLOBIN 9.6 gm/dL (14.0-18.0); LYMPHOCYTES 10.2 % (24.0-44.0); MCH 30.7 pg (26.0-34.0); MCHC 33.5 g/dL (28.0-37.0); MCV 91.8 fL (80.0-100.0); MONOCYTES 6.1 % (1.0-8.0); PLATELET COUNT 426 thou/uL (150-400); POLYS 77.6 % (36.0-66.0); RBC 3.13 mil/uL (4.50-6.00); RDW 17.3 % (10.5-14.5); WBC 6.4 thou/uL (4.0-11.0)
[2017-01-17 21:24] LABS: MANUAL DIFF NO
[2017-01-17 21:32] LABS: CALCIUM 7.5 mg/dL (8.5-10.1); CREATININE 0.9 mg/dL (0.7-1.3)
[2017-01-17 21:41] LABS: MAGNESIUM 1.3 mg/dL (1.8-2.4); TROPONIN-I < 0.04 ng/mL (<0.04-0.07)
[2017-01-18] VITALS (95 sets, daily range): BP systolic 70–147; BP diastolic 53–90
[2017-01-18 00:31] LABS: CALCIUM 7.2 mg/dL (8.5-10.1); CREATININE 1.1 mg/dL (0.7-1.3)
[2017-01-18 00:41] LABS: POTASSIUM 2.9 mmol/L (3.5-5.1)
[2017-01-18 03:59] LABS: ABSOLUTE NEUTROPHILS 4.6 thou/uL (1.4-8.2); BASOPHILS 1.3 % (0.0-2.0); HEMOGLOBIN 9.2 gm/dL (14.0-18.0); LYMPHOCYTES 12.2 % (24.0-44.0); MCHC 34.2 g/dL (28.0-37.0); MCV 90.5 fL (80.0-100.0); MONOCYTES 10.8 % (1.0-8.0); PLATELET COUNT 412 thou/uL (150-400); POLYS 70.7 % (36.0-66.0); RBC 2.98 mil/uL (4.50-6.00); RDW 17.6 % (10.5-14.5); WBC 6.5 thou/uL (4.0-11.0)
[2017-01-18 04:19] LABS: CALCIUM 7.7 mg/dL (8.5-10.1); POTASSIUM 3.7 mmol/L (3.5-5.1)
[2017-01-18 05:59] LABS: MANUAL DIFF NO
[2017-01-19] VITALS (59 sets, daily range): BP systolic 70–177; BP diastolic 42–129
[2017-01-19 06:11] LABS: CALCIUM 7.5 mg/dL (8.5-10.1); CREATININE 0.7 mg/dL (0.7-1.3); POTASSIUM 3.6 mmol/L (3.5-5.1)
[2017-01-20] VITALS (47 sets, daily range): BP systolic 94–166; BP diastolic 62–108
[2017-01-20 19:12] LABS: CORTISOL 30 MIN 20.9 ug/dL (Not Estab.); CORTISOL 60 MIN 23.6 ug/dL (Not Estab.)
[2017-01-21 00:01] VITALS: BP 100/73
[2017-01-21 04:00] VITALS: BP 115/67
[2017-01-21 05:12] LABS: HEMATOCRIT 23.5 % (42.0-52.0); HEMOGLOBIN 7.8 gm/dL (14.0-18.0); MCH 30.4 pg (26.0-34.0); MCHC 33.2 g/dL (28.0-37.0); MCV 91.6 fL (80.0-100.0); RBC 2.56 mil/uL (4.50-6.00); RDW 17.7 % (10.5-14.5); WBC 6.7 thou/uL (4.0-11.0)
[2017-01-21 05:36] LABS: CALCIUM 7.3 mg/dL (8.5-10.1); CREATININE 0.9 mg/dL (0.7-1.3); POTASSIUM 3.2 mmol/L (3.5-5.1)
[2017-01-21 08:25] VITALS: BP 125/83
[2017-01-21 15:07] VITALS: BP 109/74
[2017-01-21 20:00] VITALS: BP 110/76
[2017-01-22 04:00] VITALS: BP 105/66
[2017-01-22 05:58] LABS: HEMATOCRIT 25.1 % (42.0-52.0); HEMOGLOBIN 8.3 gm/dL (14.0-18.0); MCH 30.2 pg (26.0-34.0); MCHC 33.1 g/dL (28.0-37.0); MCV 91.4 fL (80.0-100.0); RBC 2.74 mil/uL (4.50-6.00); RDW 17.5 % (10.5-14.5); WBC 6.7 thou/uL (4.0-11.0)
[2017-01-22 06:07] LABS: CALCIUM 7.3 mg/dL (8.5-10.1); CREATININE 0.7 mg/dL (0.7-1.3); POTASSIUM 3.1 mmol/L (3.5-5.1)
[2017-01-22 08:30] VITALS: BP 111/77
[2017-01-22] MEDS ORDERED: MEROPENEM 1 GM V1 GM IV (13:16)
[2017-01-22] MEDS ORDERED: AUGMENTIN400 MG/53 PER TUBE (14:28)
[2017-01-22 14:47] VITALS: BP 107/77
== END 2017-01-22 18:11 | DRG 871 ==
LOC: ER 13:15 → EROBS 16:50 → ICU 16:50 → EROBS 18:11 → ICU 18:50 → 4E 01-21 08:27
PROVIDERS: Emergency Medicine; Hospitalist; Internal Medicine; Specialist
PROC: 02HV33Z Insertion of Infusion Device into Superior Vena Cava, Percutaneous Approach (ICD-10-PCS; principal; 2017-01-17)
PROC: 0D20XUZ Change Feeding Device in Upper Intestinal Tract, External Approach (ICD-10-PCS; 2017-01-19)
DX: A41.9 Sepsis, unspecified organism (principal); L89.154 Pressure ulcer of sacral region, stage 4; G82.50 Quadriplegia, unspecified; E46 Unspecified protein-calorie malnutrition; Z68.1 Body mass index [BMI] 19.9 or less, adult; N18.9 Chronic kidney disease, unspecified; E11.22 Type 2 diabetes mellitus with diabetic chronic kidney disease; I12.9 Hypertensive chronic kidney disease with stage 1 through stage 4 chronic kidney disease, or unspecified chronic kidney disease; E03.9 Hypothyroidism, unspecified; E78.5 Hyperlipidemia, unspecified; D63.8 Anemia in other chronic diseases classified elsewhere; Z89.611 Acquired absence of right leg above knee; Z86.718 Personal history of other venous thrombosis and embolism; Z79.899 Other long term (current) drug therapy; Z89.621 Acquired absence of right hip joint
CPT/HCPCS: 10078; 10183

== ENCOUNTER 2017-05-05 01:42 | Inpatient (IN) | payer MEDICARE, OTHER ==
[~2017-05-05] VITALS: Ht 165.1 cm; Wt 47.6 kg
--- NOTE | ~2017-05-05 | HC ---
[facility] [place] [address] CONSULTATION Name: SWAPNA LUA Room #: 421-P ADM IN M.R.#: [id number] Admission: 05/05/17 Attend Phys: Quiana Verdin MD Discharge: Date of : 59 Report #: [id number] THIS REPORT FOR: //name// CC: Quiana Verdin WOUND CARE CONSULTATION NOTE REASON FOR CONSULTATION: Stage IV pressure ulcerations of the coccyx and bilateral ischial buttocks in the setting of quadriplegia. HISTORY: The patient is an unfortunate 61-year-old gentleman with chronic quadriplegia, known to the wound care team from several prior admissions to [facility]. The patient has a urostomy, a gastrostomy tube and a colostomy. The patient was admitted to the emergency room with signs and symptoms of possible bowel obstruction; however, since that time, some stool has appeared in his colostomy bag. Wound care team was consulted for care of his known chronic coccygeal and ischial stage IV pressure ulcers. PAST MEDICAL HISTORY: 1. Diabetes mellitus, type 2, diet controlled. 2. Quadriplegia. 3. Chronic bi-ischial and coccygeal stage IV decubitus pressure ulcers. 4. History of DVT of upper extremity. 5. History of respiratory failure. 6. History of vancomycin-resistant enterococcus. 7. History of multiple drug-resistant pseudomonas. 8. History of Clostridium difficile. 9. 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 10. History of chronic kidney disease. 11. History of severe malnutrition. 12. History of gastroesophageal reflux disease. 13. History of dysphagia. 14. History of hypertension. PAST SURGICAL HISTORY: 1. Creation of surgical urostomy, right lower quadrant. 2. History of surgical colostomy, left lower quadrant. 3. Gastrostomy tube placement. 4. Right hip disarticulation for chronic pelvic osteomyelitis. REVIEW OF SYSTEMS: The patient was admitted with some nausea, vomiting, abdominal distention, and now has stool in his colostomy bag. PHYSICAL EXAMINATION: GENERAL: Shows a chronically ill-appearing, quadriplegic gentleman who is alert and conversant. HEENT: Mucous membranes are moist. [facility] [address] [place] [address] CONSULTATION Name: SWAPNA LUA Room #: 421-P [facility] IN .R.#: [id number] Admission: 05/05/17 Attend Phys: Quiana Verdin MD Discharge: Date of : 59 Report #: [id number] NECK: Supple. MUSCULOSKELETAL: Extremities show diffuse atrophy. ABDOMEN: Shows mild distention, but a functioning urostomy and a functioning colostomy with stool in the bag. ABDOMEN: Mildly distended, but soft. EXTREMITIES: Examination of lower extremities shows healed right hip disarticulation and complete amputation of the leg. Examination of the left leg shows previous heel ulcer has completely healed. There is no wound to the left leg. Examination of the patient's back shows a stage IV coccygeal pressure ulceration relatively small and bilaterally symmetric ischial stage IV pressure ulceration, which are chronic in appearance with palpable bone at the base. IMPRESSION: 1. Chronic quadriplegia. 2. History of severe malnutrition. 3. Wound protection with urostomy and colostomy. 4. Severe malnutrition with gastrostomy tube feedings. 5. Admitted with small-bowel obstruction; however, this appears to be resolving. 5. Coccygeal stage IV pressure ulceration, chronic. 6. Bi-ischial stage IV pressure ulcerations, chronic. PLAN: Wounds have some heavy exudate with some foul odor. In order to clean up these wounds, we will initiate core strength Dakin's dressings to the wounds, to be changed twice daily until the exudative burden and foul odor have improved and then revert to chronic wound care. Wound care team will follow. <ELECTRONICALLY SIGNED> By: Kenny Meléndez MD 05/07/17 0649 0758 0901 Kenny Meléndez MD /nt
[~2017-05-05 01:42] MED LIST changes: +AUGMENTIN400 MG/53 PER TUBE; +MEROPENEM 1 GM V1 GM IV
[2017-05-05 01:43] VITALS: BP 100/67
[2017-05-05] MEDS ORDERED: VITAMINC500 PER TUBE (01:54)
[2017-05-05] MEDS ORDERED: QUESTRAN POWDE378 GM PER TUBE (01:55)
[2017-05-05] MEDS ORDERED: LOMOTIL 2.5-0.01 TAB PER TUBE (01:56)
[2017-05-05] MEDS ORDERED: HEPARIN 5 U1 UNIT/ML SUBQ (01:57)
[2017-05-05] MEDS ORDERED: DUONEB 2.5-0.5 M3 ML INH (01:58)
[2017-05-05] MEDS ORDERED: LANSOPRAZOLE30 MG PER TUBE (01:59)
[2017-05-05] MEDS ORDERED: MAGOX 400400 MG PER TUBE (02:00)
[2017-05-05] MEDS ORDERED: OCTREOTIDE50 MCG/1 M SUBQ (02:01)
[2017-05-05] MEDS ORDERED: SODIUM BICARBONATE PER TUBE (02:03)
[2017-05-05] MEDS ORDERED: NORMAL SALINE NASAL (02:04)
[2017-05-05 02:59] LABS: HEMATOCRIT 38.9 % (42.0-52.0); HEMOGLOBIN 12.9 gm/dL (14.0-18.0); MCH 31.4 pg (26.0-34.0); MCHC 33.2 g/dL (28.0-37.0); MCV 94.5 fL (80.0-100.0); PLATELET COUNT 166 thou/uL (150-400); RBC 4.12 mil/uL (4.50-6.00); RDW 14.2 % (10.5-14.5); WBC 8.4 thou/uL (4.0-11.0)
[2017-05-05 03:01] LABS: URINE BILIRUBIN NEGATIVE (Negative); URINE BLOOD 1+ (Negative); URINE CLARITY SL CLOUDY; URINE COLOR YELLOW; URINE GLUCOSE-RANDOM* NEGATIVE (Negative); URINE KETONES NEGATIVE (Negative); URINE NITRITE-REFLEX NEGATIVE (Negative); URINE PROTEIN (DIPSTICK) 2+ (Negative); URINE SPECIFIC GRAVITY 1.015 (1.005-1.035); URINE UROBILINOGEN 0.2 E.U./dl (0.2-1.0)
[2017-05-05 03:02] LABS: URINE LEUKOCYTES-REFLEX 1+ (Negative)
[2017-05-05 03:07] LABS: CALCIUM 8.8 mg/dL (8.5-10.1); CREATININE 1.5 mg/dL (0.7-1.3); POTASSIUM 5.3 mmol/L (3.5-5.1)
[2017-05-05 03:13] LABS: ALBUMIN 2.6 g/dL (3.4-5.0); TOTAL BILIRUBIN 0.4 mg/dL (<0.1-1.0); TOTAL PROTEIN 7.6 g/dL (6.4-8.2)
[2017-05-05 03:17] LABS: BACTERIA-REFLEX >30 Many /HPF (None Seen)
[2017-05-05 03:18] LABS: CASTS None Seen /LPF (None Seen); SQUAMOUS None Seen /LPF (0-3); URINE WBC-REFLEX 0-5 Rare /HPF (0-5)
[2017-05-05 03:19] LABS: AMORPHOUS PHOSPHATES Few /LPF (None Seen); URINE RBC 0-2 Rare /HPF (0-2)
[2017-05-05 04:12] LABS: ABSOLUTE NEUTROPHILS 7.3 thou/uL (1.4-8.2)
[2017-05-05 04:13] LABS: LARGE PLATELETS OCCASIONAL
[2017-05-05 04:43] VITALS: BP 88/67
[2017-05-05 05:47] VITALS: BP 114/79
[2017-05-05 08:00] VITALS: BP 124/71
[2017-05-05 17:38] VITALS: BP 109/72
[2017-05-05 20:24] VITALS: BP 96/66
[2017-05-06 05:58] VITALS: BP 109/61
[2017-05-06 08:45] VITALS: BP 106/59
[2017-05-06 15:15] VITALS: BP 103/65
[2017-05-06 19:26] VITALS: BP 104/72
[2017-05-07 04:29] VITALS: BP 145/81
[2017-05-07 08:11] VITALS: BP 108/68
[2017-08-24] MEDS ORDERED: JUVEN PACKET1 EAC1 PO (15:07)
[2017-08-24] MEDS ORDERED: REMERON15 M2 PO (15:08)
[2017-08-24] MEDS ORDERED: ROBITUSSIN100 MG/53 PO (15:12)
[2017-12-09] MEDS ORDERED: LEVAQUIN 750 M750 MG PER TUBE (18:13)
[2017-12-11] MEDS ORDERED: OXYCONTIN10 M1 PER TUBE (18:16)
[2017-12-11] MEDS ORDERED: VALIUM5 MG PO (18:17)
[2017-12-11] MEDS ORDERED: ARANESP 6060 MCG/0.3 SUBQ (18:19)
== END 2017-05-07 13:09 | DRG 388 ==
LOC: ER 01:42 → 4E 03:30 → EROBS 03:30 → 4E 04:44 → 4S 04:44 → 4E 04:54
PROVIDERS: Emergency Medicine
DX: K56.7 Ileus, unspecified (principal); E43 Unspecified severe protein-calorie malnutrition; G82.50 Quadriplegia, unspecified; L89.154 Pressure ulcer of sacral region, stage 4; N17.9 Acute kidney failure, unspecified; Z68.1 Body mass index [BMI] 19.9 or less, adult; I12.0 Hypertensive chronic kidney disease with stage 5 chronic kidney disease or end stage renal disease; K56.609 Unspecified intestinal obstruction, unspecified as to partial versus complete obstruction; N18.9 Chronic kidney disease, unspecified; E11.22 Type 2 diabetes mellitus with diabetic chronic kidney disease; E03.9 Hypothyroidism, unspecified; K21.9 Gastro-esophageal reflux disease without esophagitis; E87.5 Hyperkalemia; I95.9 Hypotension, unspecified; I48.2 Chronic atrial fibrillation; N31.9 Neuromuscular dysfunction of bladder, unspecified; Z79.899 Other long term (current) drug therapy; Z89.611 Acquired absence of right leg above knee; Z86.718 Personal history of other venous thrombosis and embolism; Z93.3 Colostomy status
CPT/HCPCS: 10084

== ENCOUNTER 2017-05-12 18:28 | Inpatient (IN) | payer MEDICARE, OTHER ==
[~2017-05-12] VITALS: Ht 165.1 cm; Wt 47.2 kg
--- NOTE | ~2017-05-12 | HC ---
[facility] [place] [address] CONSULTATION Name: SWAPNA LUA Room #: 361-P [facility] IN M.R.#: [id number] Admission: 05/12/17 Attend Phys: Maciej Wadsworth DO Discharge: 05/14/17 Date of : 59 Report #: [id number] THIS REPORT FOR: //name// CC: Lexa Verdin REASON FOR PRESENTATION: Abnormal labs. REASON FOR CONSULTATION: Acute kidney injury. HISTORY OF PRESENT ILLNESS: This is a 61-year-old who is well known to me. In the last 48 hours, he has been back and forth between [facility] and his [facility] due to the fact that his PEG tube has fallen off. He is known to have numerous medical problems in the past with quadriplegia, repeated episodes of urinary tract infection, sepsis, Clostridium difficile. 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 He was told by his nursing facility that he has an acute kidney injury with abnormal labs and was sent to be evaluated accordingly. I had evaluated him on numerous occasions in the past and his baseline creatinine seems to be around 1.0. He does have very significant acidosis with bicarbonate as low as 9 on his presentation. He has a diversion colostomy and ileostomy. He really does not have any specific symptoms when I talked with him this morning other than the fact that he is concerned about his PEG tube falling out. He denies cough, fever or chills. PAST MEDICAL HISTORY: 1. Neurogenic bladder. 2. Incomplete quadriplegia. 3. Status post diverting colostomy. 4. Status post urostomy. Remote history of suprapubic catheter. 5. Diabetes mellitus. 6. Contractures. 7. DVTs. 8. Repeated episodes of nosocomial infections with different microorganisms. 9. C. diff. 10. Repeated episodes of septic shock. ALLERGIES: None. SOCIAL HISTORY: He resides in a nursing facility. No drug or alcohol abuse. REVIEW OF SYSTEMS: GENERAL: No fever or chills. CARDIOVASCULAR: No chest pain or palpitation. PULMONARY: No cough or hemoptysis. GASTROINTESTINAL: As per history of present illness. SKIN: As per the history of present illness. [address] [address] CONSULTATION Name: SWAPNA LUA Room #: 361-P [facility] IN M.R.#: [id number] Admission: 05/12/17 Attend Phys: Maciej Wadsworth DO Discharge: 05/14/17 Date of : 59 Report #: [id number] NEUROLOGICAL: No syncope, no seizures. MEDICATIONS: 1. Baclofen. 2. Lansoprazole. 3. Octreotide. 4. Sodium bicarbonate. PHYSICAL EXAMINATION: GENERAL: He is alert, oriented, able to provide me with all of the history. VITAL SIGNS: Blood pressure is 101/71. HEAD AND NECK: No jugular venous distention. CHEST: Decreased air entry bilaterally. CARDIOVASCULAR: No rub detected. ABDOMEN: Colostomy and urostomy bag. LOWER EXTREMITIES: Amputations with contractures. LABORATORY DATA: Laboratory values reviewed. Creatinine is 1.4, which is above his baseline. Previously, his baseline creatinine upon discharge back in January was 0.7. He does have metabolic acidosis with the bicarbonate down to 9. ASSESSMENT, IMPRESSION AND PLAN: 1. Metabolic acidosis. 2. Hyperkalemia. 3. Hyponatremia. 4. Hypotension. 5. Acute kidney injury. 6. Admission. 7. IV fluid resuscitation reformulated. 8. Septic workup given his repeated episodes of sepsis. 9. Avoid nephrotoxins. 10. Empiric antibiotics based on his previous cultures. 11. ID to see. 12. Replace his feeding tube after making sure that possible septic episode is not due to an abdominal process due to dislodged PEG tube. 13. He does have some sort of chronic metabolic acidosis related to his urostomy and this will need to be addressed long-term with bicarbonate supplement. 14. Wound care. 15. Avoid nephrotoxins. [address] [address] CONSULTATION Name: SWAPNA LUA Room #: 361-P [facility] IN M.R.#: [id number] Admission: 05/12/17 Attend Phys: Maciej Wadsworth DO Discharge: 05/14/17 Date of : 59 Report #: [id number] 16. Strict input and output. 17. We will continue to follow along. <ELECTRONICALLY SIGNED> By: Yoandy Delarosa MD 05/15/17 0953 1059 1125 Yoandy Delarosa MD /nt
--- NOTE | ~2017-05-12 | EKG ---
[address] [place] [address] ELECTROCARDIOGRAM REPORT Name: SWAPNA LUA Room #: 170-10 ADM IN M.R.#: [id number] Admission: 05/12/17 Attend Phys: Hussain Vargas MD Discharge: Date of : 59 Report #: [id number] THIS REPORT FOR: //name// [facility] ED Test Date: 2017-05-12 Test Time: 18:49:39 Pat Name: SWAPNA LUA Department: Room: 170 Gender: M Finishing Technician: MENDOZA : 1955 Requested By: Rui Vargas Order Number: [id number] MD: Aj Watson Measurements Intervals [place] Rate: 93 P: 54 AR: 196 QRS: -32 QRSD: 94 T: 25 QT: 344 QTc: 428 Interpretive Statements Sinus rhythm Atrial premature complex Left axis deviation Borderline low voltage, extremity leads Abnormal R-wave progression, early transition Electronically Signed On 05-12-2017 20:57:30 CFO CONTROLLER by Aj Watson [email or web address] <ELECTRONICALLY SIGNED> By: Aj Watson MD 05/12/172056 48 48 Aj Watson MD /DEVI
--- NOTE | ~2017-05-12 | HC ---
[facility] [address] [place] [address] CONSULTATION Name: SWAPNA LUA Room #: 361-P ADM IN M.R.#: [id number] Admission: 05/12/17 Attend Phys: Maciej Wadsworth DO Discharge: Date of : 59 Report #: [id number] THIS REPORT FOR: //name// CC: Lexa Verdin DATE OF SERVICE: 05/13/2017 CHIEF COMPLAINT: Stage 4 sacral and gluteal pressure ulcerations. HISTORY OF PRESENT ILLNESS: This is a 61-year-old male patient with whom we are familiar on the wound care service. He resides at [facility] and he presented to the Emergency Department after abnormal lab findings. His PEG tube has come out and he is admitted for ongoing care and evaluation. I have been asked to see him with regard to wound care. He denies any nausea, abdominal pain, vomiting, fever, dizziness or numbness or tingling at present. PAST MEDICAL HISTORY: Positive for history of stage 4 pressure ulcerations to the sacral and gluteal regions, previous right hip disarticulation, chronic pelvic osteomyelitis and quadriplegia with bilateral upper extremity flexion contractures. He has had previous diverting colostomy and urostomy, history of type 2 diabetes mellitus and severe malnutrition. SOCIAL HISTORY: Negative for alcohol or tobacco use. FAMILY HISTORY: Noncontributory. REVIEW OF SYSTEMS: CONSTITUTIONAL: The patient has no fever, chills or weight loss. NEUROLOGIC: The patient has quadriplegia. ENT: The patient denies earache, nasal drainage or sore throat. CARDIOVASCULAR: The patient denies chest pain, palpitations or diaphoresis. PULMONARY: The patient denies cough or shortness of breath. GASTROINTESTINAL: The patient denies nausea or abdominal pain. He notes his G-tube is out. Other systems in a 12-point review of systems are negative. PHYSICAL EXAMINATION: VITAL SIGNS: At this time include pulse of 78, respiratory rate of 16, blood pressure of 94/57 and temperature 97.9. GENERAL: This is a chronically ill-appearing male patient who appears to be in no distress. HEENT: Head normocephalic. Nose and throat clear. NECK: Supple. LUNGS: Diminished. HEART: Regular rate and rhythm. [facility] [address] [place] [address] CONSULTATION Name: SWAPNA LUA Room #: 361[facility] IN M.R.#: [id number] Admission: 05/12/17 Attend Phys: Maciej Wadsworth DO Discharge: Date of : 59 Report #: [id number] ABDOMEN: Soft and nontender. PELVIC: Pelvic region demonstrates stage 4 pressure ulcerations to the sacral and gluteal regions. These actually appear to be somewhat improved since I last saw him. He has had previous right hip disarticulation. CLINICAL IMPRESSION: 1. Stage 4 pressure ulcerations to the gluteal and sacral regions. 2. History of chronic osteomyelitis. 3. Quadriplegia. RECOMMENDATIONS: Continue with aggressive nutritional support. We will recommend silver alginate and ABD pads. He will need low air loss mattress every 2 hours, turning and repositioning and G-tube replacement for aggressive nutritional support. I appreciate being asked to see him in consultation. <ELECTRONICALLY SIGNED> By: Piryank Monroe MD 05/14/17 0856 [id number] Priyank Monroe MD /nt
[~2017-05-12 18:28] MED LIST changes: +DUONEB 2.5-0.5 M3 ML INH; +HEPARIN 5 U1 UNIT/ML SUBQ; +LANSOPRAZOLE30 MG PER TUBE; +LOMOTIL 2.5-0.01 TAB PER TUBE; +MAGOX 400400 MG PER TUBE; +NORMAL SALINE NASAL; +OCTREOTIDE50 MCG/1 M SUBQ; +QUESTRAN POWDE378 GM PER TUBE; +SODIUM BICARBONATE PER TUBE; +VITAMINC500 PER TUBE
[2017-05-12 18:30] VITALS: BP 114/47
[2017-05-12 19:18] LABS: ABSOLUTE NEUTROPHILS 5.1 thou/uL (1.4-8.2); BASOPHILS 0.4 % (0.0-2.0); EOSINOPHILS 5.9 % (0.0-3.0); HEMATOCRIT 39.2 % (42.0-52.0); HEMOGLOBIN 13.3 gm/dL (14.0-18.0); MCH 31.6 pg (26.0-34.0); MCHC 34.1 g/dL (28.0-37.0); MCV 92.7 fL (80.0-100.0); MONOCYTES 9.3 % (1.0-8.0); PLATELET COUNT 290 thou/uL (150-400); POLYS 72.4 % (36.0-66.0); RBC 4.22 mil/uL (4.50-6.00); RDW 14.6 % (10.5-14.5)
[2017-05-12 19:33] LABS: ANION GAP 11 mmol/L (7-16); BUN 53 mg/dL (7-18); CALCIUM 9.3 mg/dL (8.5-10.1); CHLORIDE 107 mmol/L (98-107); CO2 14 mmol/L (21-32); CREATININE 1.6 mg/dL (0.7-1.3); GLUCOSE 74 mg/dL (74-106); POTASSIUM 5.9 mmol/L (3.5-5.1); SODIUM 132 mmol/L (136-145)
[2017-05-12 19:41] LABS: TROPONIN-I < 0.04 ng/mL (<0.06)
[2017-05-13 01:10] LABS: HEMATOCRIT 40.4 % (42.0-52.0); HEMOGLOBIN 13.4 gm/dL (14.0-18.0); MCH 31.4 pg (26.0-34.0); MCHC 33.2 g/dL (28.0-37.0); MCV 94.7 fL (80.0-100.0); RBC 4.26 mil/uL (4.50-6.00); RDW 14.6 % (10.5-14.5)
[2017-05-13 01:18] LABS: CALCIUM 8.7 mg/dL (8.5-10.1); CREATININE 1.4 mg/dL (0.7-1.3); POTASSIUM 5.6 mmol/L (3.5-5.1)
[2017-05-13 02:33] VITALS: BP 101/71
[2017-05-13 06:37] VITALS: BP 101/71
[2017-05-13 11:58] LABS: BE(vivo) -17.2 mmol/L (-2 to +3); HCO3 10.4 mmol/L (22.0-26.0); PCO2 31.1 mmHg (35.0-45.0); PO2 105.6 mmHg (80.0-100.0); pH 7.144 (7.360-7.450); sO2 96.3 % (92.0-98.0)
[2017-05-13 13:36] VITALS: BP 107/75
[2017-05-13 13:50] VITALS: BP 124/72
[2017-05-13 17:30] VITALS: BP 94/57
[2017-05-13 19:40] VITALS: BP 118/60
[2017-05-14 04:39] VITALS: BP 125/60
[2017-05-14 06:02] LABS: ALBUMIN 2.2 g/dL (3.4-5.0); CALCIUM 8.5 mg/dL (8.5-10.1); CREATININE 1.1 mg/dL (0.7-1.3); PHOSPHORUS 2.9 mg/dL (2.5-4.9); POTASSIUM 3.9 mmol/L (3.5-5.1)
[2017-05-14 07:28] VITALS: BP 117/78
[2017-05-14 11:40] VITALS: BP 127/71
[2017-05-14] MEDS ORDERED: CITRATE OF MAG296 M1 PO (16:09)
[2017-05-14] MEDS ORDERED: COLACE100 MG PO (16:09)
[2017-08-24] MEDS ORDERED: JUVEN PACKET1 EAC1 PO (15:07)
[2017-08-24] MEDS ORDERED: REMERON15 M2 PO (15:08)
[2017-08-24] MEDS ORDERED: ROBITUSSIN100 MG/53 PO (15:12)
[2017-12-09] MEDS ORDERED: LEVAQUIN 750 M750 MG PER TUBE (18:13)
[2017-12-11] MEDS ORDERED: OXYCONTIN10 M1 PER TUBE (18:16)
[2017-12-11] MEDS ORDERED: VALIUM5 MG PO (18:17)
[2017-12-11] MEDS ORDERED: ARANESP 6060 MCG/0.3 SUBQ (18:19)
== END 2017-05-14 18:55 | DRG 393 ==
LOC: ER 18:28 → EROBS 20:21 → 3W 20:21 → EROBS 05-13 04:41 → 3W 05-13 13:36
PROVIDERS: Hospitalist; Nurse Practitioner; Nurse Practitioner Family
PROC: 0D20XUZ Change Feeding Device in Upper Intestinal Tract, External Approach (ICD-10-PCS; principal; 2017-05-13)
DX: K94.23 Gastrostomy malfunction (principal); L89.154 Pressure ulcer of sacral region, stage 4; G82.50 Quadriplegia, unspecified; E43 Unspecified severe protein-calorie malnutrition; I12.0 Hypertensive chronic kidney disease with stage 5 chronic kidney disease or end stage renal disease; E87.2 Acidosis; E87.1 Hypo-osmolality and hyponatremia; N17.9 Acute kidney failure, unspecified; Z68.1 Body mass index [BMI] 19.9 or less, adult; N18.9 Chronic kidney disease, unspecified; E03.9 Hypothyroidism, unspecified; E11.22 Type 2 diabetes mellitus with diabetic chronic kidney disease; K21.9 Gastro-esophageal reflux disease without esophagitis; E78.5 Hyperlipidemia, unspecified; I95.9 Hypotension, unspecified; E87.5 Hyperkalemia; I48.91 Unspecified atrial fibrillation; N31.9 Neuromuscular dysfunction of bladder, unspecified; Z89.611 Acquired absence of right leg above knee; Z86.718 Personal history of other venous thrombosis and embolism
CPT/HCPCS: 10879

== ENCOUNTER 2017-05-22 14:55 | Emergency (ER) | payer OTHER ==
[~2017-05-22] VITALS: Ht 165.1 cm; Wt 47.6 kg
[~2017-05-22 14:55] MED LIST changes: +CITRATE OF MAG296 M1 PO
[2017-05-22 15:53] LABS: URINE CLARITY CLOUDY; URINE COLOR YELLOW; URINE SPECIFIC GRAVITY 1.005 (1.005-1.035)
[2017-05-22 15:54] LABS: URINE BILIRUBIN NEGATIVE (Negative); URINE BLOOD 2+ (Negative); URINE GLUCOSE-RANDOM* NEGATIVE (Negative); URINE KETONES NEGATIVE (Negative); URINE NITRITE-REFLEX NEGATIVE (Negative)
[2017-05-22 15:55] LABS: URINE LEUKOCYTES-REFLEX 2+ (Negative); URINE UROBILINOGEN 0.2 E.U./dl (0.2-1.0)
[2017-05-22 15:56] LABS: URINE REDUCING SUBSTANCE NEGATIVE
[2017-05-22 15:57] LABS: URINE PROTEIN (DIPSTICK) 2+ (Negative)
[2017-05-22 15:58] LABS: BACTERIA-REFLEX >30 Many /HPF (None Seen); CASTS None Seen /LPF (None Seen); SQUAMOUS None Seen /LPF (0-3); URINE RBC 3-10 Few /HPF (0-2); URINE WBC-REFLEX >25 Many /HPF (0-5)
[2017-05-22 15:59] LABS: CRYSTALS None Seen /LPF (None Seen)
[2017-05-22 16:07] LABS: BASOPHILS 0.3 % (0.0-2.0); EOSINOPHILS 1.6 % (0.0-3.0); HEMATOCRIT 35.8 % (42.0-52.0); LYMPHOCYTES 3.3 % (24.0-44.0); MCH 31.1 pg (26.0-34.0); MCHC 33.6 g/dL (28.0-37.0); MCV 92.8 fL (80.0-100.0); MONOCYTES 9.1 % (1.0-8.0); PLATELET COUNT 336 thou/uL (150-400); POLYS 85.7 % (36.0-66.0); RBC 3.86 mil/uL (4.50-6.00); RDW 14.5 % (10.5-14.5); WBC 12.8 thou/uL (4.0-11.0)
[2017-05-22 16:13] LABS: CREATININE 1.6 mg/dL (0.7-1.3); POTASSIUM 4.6 mmol/L (3.5-5.1)
[2017-05-22 16:19] LABS: ALBUMIN 2.2 g/dL (3.4-5.0); DIRECT BILIRUBIN 0.2 mg/dL (<0.1-0.3); TOTAL BILIRUBIN 0.5 mg/dL (<0.1-1.0); TOTAL PROTEIN 7.9 g/dL (6.4-8.2)
[2017-05-22] MEDS ORDERED: KEFLEX500 M1 PO (17:41)
[2017-05-22 20:40] VITALS: BP 112/86
[2017-08-24] MEDS ORDERED: JUVEN PACKET1 EAC1 PO (15:07)
[2017-08-24] MEDS ORDERED: REMERON15 M2 PO (15:08)
[2017-08-24] MEDS ORDERED: ROBITUSSIN100 MG/53 PO (15:12)
[2017-12-09] MEDS ORDERED: LEVAQUIN 750 M750 MG PER TUBE (18:13)
[2017-12-11] MEDS ORDERED: OXYCONTIN10 M1 PER TUBE (18:16)
[2017-12-11] MEDS ORDERED: VALIUM5 MG PO (18:17)
[2017-12-11] MEDS ORDERED: ARANESP 6060 MCG/0.3 SUBQ (18:19)
== END 2017-05-22 20:41 | disposition home or self-care (01) ==
LOC: ER 14:55
PROVIDERS: Emergency Medicine
DX: N39.0 Urinary tract infection, site not specified (principal); K59.00 Constipation, unspecified; M86.8X8 Other osteomyelitis, other site; I12.9 Hypertensive chronic kidney disease with stage 1 through stage 4 chronic kidney disease, or unspecified chronic kidney disease; N18.9 Chronic kidney disease, unspecified; E11.22 Type 2 diabetes mellitus with diabetic chronic kidney disease; E03.9 Hypothyroidism, unspecified; K21.9 Gastro-esophageal reflux disease without esophagitis; E78.5 Hyperlipidemia, unspecified; Z86.718 Personal history of other venous thrombosis and embolism; Z87.440 Personal history of urinary (tract) infections; Z86.2 Personal history of diseases of the blood and blood-forming organs and certain disorders involving the immune mechanism

== ENCOUNTER 2017-05-30 17:11 | Inpatient (IN) | payer OTHER, MEDICARE ==
[~2017-05-30] VITALS: Ht 165.1 cm; Wt 46.4 kg
--- NOTE | ~2017-05-30 | HC ---
[facility] [place] [address] CONSULTATION Name: SWAPNA LUA Room #: 353-P [facility] IN .R.#: [id number] Admission: 05/30/17 Attend Phys: Hussain Vargas MD Discharge: 06/02/17 Date of : 59 Report #: [id number] THIS REPORT FOR: //name// CC: VIOLETTA physician/PCP Hussain Vargas DATE OF SERVICE: 06/01/2017 PERSONAL PHYSICIAN: Maciej Wadsworth DO CHIEF COMPLAINT: Sacrococcygeal decubitus ulcers. HISTORY OF PRESENT ILLNESS: This is a 61-year-old black male with history of multiple hospitalizations at [facility], who has now been readmitted for abdominal pain and distention. The patient has a longstanding history of decubitus ulcers, we have been asked to follow him for this. The patient denies any pain in the wound secondary to the patient has no sensation in that region. The patient has a previous history of right hip disarticulation secondary to osteomyelitis of the hip and pelvis. The patient currently has C. difficile enteritis as well. 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 He is quadriplegic, has the right-sided hip disarticulation and has history of multiple decubitus ulcers. CURRENT MEDICATIONS: Multiple, I reviewed the patient's medication list. DRUG ALLERGIES: None. SOCIAL HISTORY: The patient resides in a anesthesiology fellow care facility. FAMILY HISTORY: Not pertinent to current medical condition. REVIEW OF SYSTEMS: CONSTITUTIONAL: The patient denies fevers or chills. NEUROLOGIC: The patient has overall generalized weakness, but no isolated weakness in his remaining arms or legs. EYES: No complaints. ENT: No complaints. CARDIAC: The patient has no chest pain, palpitations or peripheral edema. RESPIRATORY: The patient denies shortness breath, cough or wheezes. GASTROINTESTINAL: The patient complains of abdominal pain, which is diffuse, associated mild nausea, but no vomiting, loose stools. MUSCULOSKELETAL: No complaints. SKIN: There are multiple stage 4 decubitus ulcers in the sacrococcygeal and bilateral ischial regions. [facility] [address] [place] [address] CONSULTATION Name: SWAPNA LUA Room #: 353-P [facility] IN [facility].#: [id number] Admission: 05/30/17 Attend Phys: Hussain Vargas MD Discharge: 06/02/17 Date of : 59 Report #: [id number] PHYSICAL EXAMINATION: VITAL SIGNS: Temperature is 37.5, pulse ____, respirations 22, BP 102/66. GENERAL: This is alert and oriented x2, to person and place, but not time; elderly, chronically ill-appearing black male who is in no obvious distress. HEENT: Normocephalic, atraumatic. Mucous membranes are dry. Pupils are round. Sclerae white. NECK: Without JVD, otherwise supple. LUNGS: Slight diminished breath sounds heard throughout, but no rhonchi. HEART: Tachycardic with 2/6 systolic ejection murmur. ABDOMEN: Soft with mild distention. PEG tube is in place as is ileal conduit. SKIN: Evaluation of the sacrococcygeal region reveals resolving stage 4 decubitus ulcer, which is fairly clean, granulating and there is a palpable bone noted in the mid portion as well as palpable and noted over each ischial tuberosity. The ulcerations are fairly superficial, but the patient has essentially no subcutaneous tissue overlying the bony structures. There is moderate foul odor noted coming from all these ulcerations with seropurulent drainage. Periuclers are otherwise intact without significant erythema, warmth. No significant tunneling, tracking or undermining. Evaluation of right lower extremity reveals a surgical wound, which has healed on the disarticulation site. Left heel is intact. NEUROLOGIC: Cranial nerves 2-12 grossly intact. The patient is quadriplegic. LABORATORY DATA: White count 6.5, hemoglobin 9.6. Albumin is 1.8. IMPRESSION: 1. Bilateral stage 4 ischial tuberosity ulcerations present on admission. 2. Sacrococcygeal stage 4 decubitus ulcer, present on admission. 3. Quadriplegia. 4. Severe protein calorie malnutrition. 5. Generalized debility. 6. History of Clostridium difficile enteritis. PLAN: At this time, we will start the patient on ____ Dakin solution, wet-to-dry dressings to the decubitus ulcers on sacrococcygeal and ischial tuberosity regions. It should be changed once daily, covered with an ABD. We will put the patient on low air loss mattress and turn every 2 hours. We will make sure we maximize the patient's protein supplementation via PEG tube for healing. Continue all other current medications and we will continue to follow the patient. <ELECTRONICALLY SIGNED> By: Joe Daniel MD 07/09/17 1524 1328 [id number] Joe Daniel MD /nt
--- NOTE | ~2017-05-30 | HC ---
[facility] [place] [address] CONSULTATION Name: SWAPNA LUA Room #: 353-P [facility] IN M.R.#: [id number] Admission: 05/30/17 Attend Phys: Hussain Vargas MD Discharge: 06/02/17 Date of : 59 Report #: [id number] THIS REPORT FOR: //name// CC: VIOLETTA physician/PCP Maciej Wadsworth DATE OF SERVICE: 05/31/2017 NEPHROLOGY CONSULTATION REASON FOR CONSULTATION: Acute kidney injury. HISTORY OF PRESENT ILLNESS: This is a 61-year-old male with frequent hospitalizations here at [facility]. We have seen him on previous hospitalizations. He stays at a local care center. He has a PEG tube in place. Apparently, he began having abdominal discomfort. So his PEG tube feedings were held. He drains his bowel through a colostomy. He also has an ileal drainage of his urinary tract. He has had multiple prior hospitalizations with volume depletion, urinary tract infections, C. diff and poor intake. This episode appears to be more of the same. With his abdominal pain, he was not getting his usual intake through his PEG tube. In reviewing his labs at its best, he can get his creatinine level down to 0.7 and he has had those recently as 3-4 months ago. More recently, it has been in the 1.4-1.5 range. I would note he did have CT scan, which showed unobstructed kidneys bilaterally of particular note though. Both kidneys show a rather scarred echogenic appearance. He has multiple acquired renal cysts. He has mild caliectasis related to his long-term ileal drainage. PAST MEDICAL HISTORY: In addition to that noted above, he had the ileal drainage for his neurogenic bladder. He has been quadriplegic. He has had high right otvdi-jco-clwt amputation. He is reportedly quadriplegic. He is immobile. MEDICATIONS: Available from his chart include vitamin C, atorvastatin 10 mg daily, baclofen 10 mg t.i.d., cephalexin 500 mg b.i.d., cholestyramine q. 8 hours, docusate p.r.n., DuoNeb inhaler, probiotic, lansoprazole 30 mg b.i.d., magnesium oxide 400 mg b.i.d., Remeron, multivitamin, octreotide, p.r.n. oxycodone and sodium bicarbonate 1300 mg every 6 hours. FAMILY HISTORY: Noncontributory. SOCIAL HISTORY: The patient lives in the [facility]. REVIEW OF SYSTEMS: Mainly, he will tell me that he is thirsty, wonders where his water has gone. Currently denies abdominal pain. [address] [address] CONSULTATION Name: LUASWAPNA Room #: 353-P [facility] IN M.R.#: [id number] Admission: 05/30/17 Attend Phys: Hussain Vargas MD Discharge: 06/02/17 Date of : 59 Report #: [id number] PHYSICAL EXAMINATION: GENERAL: Very debilitated thin male, lying in bed. He has the qiusi-tfc-xucc amputation on the right, which is actually a very high amputation. PEG tube is ____. He has drains in both his ileal conduit and into his colostomy bag. VITAL SIGNS: Blood pressure 111/65, heart rate 115, temperature 97.2 and oxygen saturation 100%. HEENT: Shows pupils are equal and reactive. Sclerae nonicteric. Oral mucosa is dry. NECK: Shows no JVD. CHEST: Fairly clear bilaterally. HEART: Regular rate and rhythm. ABDOMEN: Shows the ileal urine drainage in the right mid abdomen. The colostomy is in left lower quadrant. Few bowel sounds are present. EXTREMITIES: He has no peripheral edema. He has mildly decreased skin turgor with right ropna-pbs-muum amputation. LABORATORIES: Sodium 147, potassium 4.3, chloride 120 and bicarb 12. BUN 107 and creatinine 1.4. Total bilirubin 0.3, calcium 8.0, total protein 7.9 and albumin 2.1. White count 5.4, hemoglobin 11.0 and hematocrit 33.0. Urinalysis: Specific gravity of less than 1.005, pH 6.5, 2+ protein, greater than 25 white cells, 0-2 red cells, many bacteria. Blood gas on admission, pH 7.101, pCO2 of 23.9 and pO2 of 123. ASSESSMENT: 1. Acute kidney injury. This is one of multiple episodes with volume depletion on top of some chronic kidney disease. He always seems to get a bit better. We will increase his IV fluids and give him appropriate management for his electrolyte balance. Kidneys are chronically changed, but other than that always seemed to return to adequate function. So we will follow the same path. 2. Chronic kidney disease, likely stage 2 or 3 with somewhat scarred kidneys and multiple acquired cysts and recurring episodes of acute kidney injury. 3. Abdominal discomfort. By my review, CT scan of the abdomen is negative. 4. Metabolic acidosis. He is chronically on some bicarb. We actually increased the amount of the bicarb. 5. Hypernatremia. In addition to converting over to more bicarb, we will back off from giving more free water. PLAN: 1. Change IV fluids to D5W with 75 mEq of bicarb. This will provide more bicarb and less overall sodium chloride. 2. Once we are certain that his abdomen is fine, we can start letting water back down his PEG tube. [facility] [address] [address] CONSULTATION Name: SWAPNA LUA Room #: 353-P [facility] IN .R.#: [id number] Admission: 05/30/17 Attend Phys: Hussain Vargas MD Discharge: 06/02/17 Date of : 59 Report #: [id number] 3. Repeat labs. 4. We will follow along the care of this patient. <ELECTRONICALLY SIGNED> By: Natan Mcmahan MD 06/15/17 1828 1119 14 Natan Mcmahan MD /nt
[~2017-05-30 17:11] MED LIST changes: +KEFLEX500 M1 PO
[2017-05-30 17:14] VITALS: BP 87/60
[2017-05-30 19:31] LABS: BASOPHILS 0.7 % (0.0-2.0); EOSINOPHILS 4.8 % (0.0-3.0); HEMATOCRIT 32.7 % (42.0-52.0); HEMOGLOBIN 10.9 gm/dL (14.0-18.0); LYMPHOCYTES 12.9 % (24.0-44.0); MCH 30.8 pg (26.0-34.0); MCHC 33.3 g/dL (28.0-37.0); MCV 92.6 fL (80.0-100.0); MONOCYTES 8.2 % (1.0-8.0); PLATELET COUNT 308 thou/uL (150-400); POLYS 73.4 % (36.0-66.0); RBC 3.53 mil/uL (4.50-6.00); WBC 6.8 thou/uL (4.0-11.0)
[2017-05-30 19:37] LABS: CALCIUM 8.3 mg/dL (8.5-10.1); CREATININE 1.5 mg/dL (0.7-1.3)
[2017-05-30 19:44] LABS: ALBUMIN 2.1 g/dL (3.4-5.0); DIRECT BILIRUBIN 0.1 mg/dL (<0.1-0.3); TOTAL BILIRUBIN 0.3 mg/dL (<0.1-1.0); TOTAL PROTEIN 7.9 g/dL (6.4-8.2)
[2017-05-30 19:52] LABS: URINE BILIRUBIN NEGATIVE (Negative); URINE BLOOD 1+ (Negative); URINE CLARITY SL HAZY; URINE COLOR YELLOW; URINE GLUCOSE-RANDOM* NEGATIVE (Negative); URINE KETONES NEGATIVE (Negative); URINE LEUKOCYTES-REFLEX 3+ (Negative); URINE NITRITE-REFLEX NEGATIVE (Negative); URINE PROTEIN (DIPSTICK) 2+ (Negative); URINE SPECIFIC GRAVITY <= 1.005 (1.005-1.035); URINE UROBILINOGEN 0.2 E.U./dl (0.2-1.0)
[2017-05-30 19:58] LABS: BACTERIA-REFLEX >30 Many /HPF (None Seen); URINE WBC-REFLEX >25 Many /HPF (0-5)
[2017-05-30 20:00] LABS: CASTS None Seen /LPF (None Seen); SQUAMOUS None Seen /LPF (0-3); YEAST-REFLEX Present (None Seen)
[2017-05-30 20:01] LABS: CRYSTALS None Seen /LPF (None Seen); URINE RBC 0-2 Rare /HPF (0-2)
[2017-05-30 21:00] LABS: HCO3 6.9 mmol/L (22.0-26.0); sO2 97.4 % (92.0-98.0)
[2017-05-30 21:01] LABS: PCO2 22.7 mmHg (35.0-45.0); pH 7.103 (7.360-7.450)
[2017-05-30 23:04] LABS: BE(vivo) -20.8 mmol/L (-2 to +3); HCO3 7.3 mmol/L (22.0-26.0); PO2 123.7 mmHg (80.0-100.0); sO2 97.2 % (92.0-98.0)
[2017-05-30 23:05] LABS: PCO2 23.9 mmHg (35.0-45.0); pH 7.101 (7.360-7.450)
[2017-05-31] VITALS (8 sets, daily range): BP systolic 75–111; BP diastolic 52–78
[2017-05-31 05:59] LABS: CREATININE 1.4 mg/dL (0.7-1.3); MCH 30.6 pg (26.0-34.0); MCHC 33.2 g/dL (28.0-37.0); MCV 92.3 fL (80.0-100.0); POTASSIUM 4.3 mmol/L (3.5-5.1); RBC 3.58 mil/uL (4.50-6.00); RDW 15.1 % (10.5-14.5); WBC 5.4 thou/uL (4.0-11.0)
[2017-06-01 04:20] VITALS: BP 122/65
[2017-06-01 05:55] LABS: HEMATOCRIT 28.2 % (42.0-52.0); HEMOGLOBIN 9.6 gm/dL (14.0-18.0); MCH 31.1 pg (26.0-34.0); MCHC 34.1 g/dL (28.0-37.0); MCV 91.3 fL (80.0-100.0); RBC 3.08 mil/uL (4.50-6.00); RDW 14.9 % (10.5-14.5); WBC 6.5 thou/uL (4.0-11.0)
[2017-06-01 06:10] LABS: ALBUMIN 1.8 g/dL (3.4-5.0); CALCIUM 7.3 mg/dL (8.5-10.1); CREATININE 1.3 mg/dL (0.7-1.3); PHOSPHORUS 2.7 mg/dL (2.5-4.9)
[2017-06-01 06:11] LABS: POTASSIUM 3.3 mmol/L (3.5-5.1)
[2017-06-01 08:18] VITALS: BP 116/70
[2017-06-01 12:30] VITALS: BP 102/66
[2017-06-01 16:00] VITALS: BP 109/83
[2017-06-01 20:01] VITALS: BP 102/56
[2017-06-02 04:12] LABS: HEMATOCRIT 28.4 % (42.0-52.0); HEMOGLOBIN 9.6 gm/dL (14.0-18.0); MCH 30.9 pg (26.0-34.0); MCV 90.9 fL (80.0-100.0); RBC 3.12 mil/uL (4.50-6.00); RDW 15.1 % (10.5-14.5); WBC 7.9 thou/uL (4.0-11.0)
[2017-06-02 04:29] LABS: ALBUMIN 1.8 g/dL (3.4-5.0); CALCIUM 7.5 mg/dL (8.5-10.1); CREATININE 1.2 mg/dL (0.7-1.3); PHOSPHORUS 1.6 mg/dL (2.5-4.9)
[2017-06-02 04:37] LABS: POTASSIUM 3.4 mmol/L (3.5-5.1)
[2017-06-02 05:50] VITALS: BP 112/78
[2017-06-02 08:15] VITALS: BP 116/82
[2017-06-02] MEDS ORDERED: ONDANSETRON HCL4 M2 PO (12:33)
[2017-08-24] MEDS ORDERED: JUVEN PACKET1 EAC1 PO (15:07)
[2017-08-24] MEDS ORDERED: REMERON15 M2 PO (15:08)
[2017-08-24] MEDS ORDERED: ROBITUSSIN100 MG/53 PO (15:12)
[2017-12-09] MEDS ORDERED: LEVAQUIN 750 M750 MG PER TUBE (18:13)
[2017-12-11] MEDS ORDERED: OXYCONTIN10 M1 PER TUBE (18:16)
[2017-12-11] MEDS ORDERED: VALIUM5 MG PO (18:17)
[2017-12-11] MEDS ORDERED: ARANESP 6060 MCG/0.3 SUBQ (18:19)
== END 2017-06-02 16:02 | DRG 682 ==
LOC: ER 17:11 → 3W 21:20 → EROBS 21:20 → 3W 05-31 00:31
PROVIDERS: Emergency Medicine; Hospitalist; Internal Medicine Nephrology; Nurse Practitioner Family
DX: N17.9 Acute kidney failure, unspecified (principal); G82.50 Quadriplegia, unspecified; E43 Unspecified severe protein-calorie malnutrition; L89.154 Pressure ulcer of sacral region, stage 4; L89.324 Pressure ulcer of left buttock, stage 4; E87.2 Acidosis; N39.0 Urinary tract infection, site not specified; E87.0 Hyperosmolality and hypernatremia; M86.8X8 Other osteomyelitis, other site; Z68.1 Body mass index [BMI] 19.9 or less, adult; I12.0 Hypertensive chronic kidney disease with stage 5 chronic kidney disease or end stage renal disease; N18.9 Chronic kidney disease, unspecified; E03.9 Hypothyroidism, unspecified; E78.5 Hyperlipidemia, unspecified; E11.22 Type 2 diabetes mellitus with diabetic chronic kidney disease; E86.0 Dehydration; E86.9 Volume depletion, unspecified; I48.91 Unspecified atrial fibrillation; N31.9 Neuromuscular dysfunction of bladder, unspecified; Z89.611 Acquired absence of right leg above knee; Z86.718 Personal history of other venous thrombosis and embolism; Z93.3 Colostomy status; Z79.899 Other long term (current) drug therapy
CPT/HCPCS: 10879

== ENCOUNTER 2017-06-13 07:55 | Inpatient (IN) | payer OTHER ==
[~2017-06-13] VITALS: Ht 165.1 cm; Wt 49.9 kg
--- NOTE | ~2017-06-13 | EKG ---
[place] [address] [facility] [place] [address] ELECTROCARDIOGRAM REPORT Name: SWAPNA LUA Room #: 361- ADM IN M.R.#: [id number] Admission: 06/13/17 Attend Phys: Hussain Vargas MD Discharge: Date of : 59 Report #: [id number] THIS REPORT FOR: //name// [facility] Test Date: 2017-06-14 Test Time: 08:49:04 Pat Name: SWAPNA LUA Department: Room: 361 Gender: M Shoe Coverer: ZINA : 1955 Requested By: Michael Gonzales Order Number: [id number] MD: Michael Gonzales Measurements Intervals [place] Rate: 103 P: 0 FL: 56 QRS: -21 QRSD: 82 T: 70 QT: 324 QTc: 424 Interpretive Statements Sinus tachycardia Baseline artifact limits interpretation of ST and T-wave segments Electronically Signed On 06-14-2017 11:31:43 TELERADIOLOGIST by Michael Gonzales [email or web address] <ELECTRONICALLY SIGNED> By: Michael Gonzales MD, [facility] 06/14/17 1131 0849 8 Michael Gonzales MD, FACC /EPI
--- NOTE | ~2017-06-13 | EKG ---
[place] [address] [facility] [place] [address] ELECTROCARDIOGRAM REPORT Name: LUASWAPNA Room #: 361- ADM IN M.R.#: [id number] Admission: 06/13/17 Attend Phys: Hussain Vargas MD Discharge: Date of : 59 Report #: [id number] THIS REPORT FOR: //name// [facility] Test Date: 2017-06-14 Test Time: 10:32:53 Pat Name: SWAPNA LUA Department: Room: 361 Gender: M Counselor Manager: ZINA : 1955 Requested By: Michael Gonzaels Order Number: [id number] MD: Michael Gonzales Measurements Intervals [place] Rate: 89 P: 0 MD: 195 QRS: -35 QRSD: 79 T: 31 QT: 331 QTc: 403 Interpretive Statements Sinus tachycardia Atrial premature complexes Abnormal R-wave progression, early transition Minimal, diffuse ST elevation, consider pericarditis No previous ECGs available for comparison Electronically Signed On 06-14-2017 11:35:56 OPERATING ROOM TECH by Michael Gonzales [email or web address] <ELECTRONICALLY SIGNED> By: Michael Gonzales MD, [facility] 06/14/17 1135 1032 1032 Michael Gonzales MD, [facility] /EPI
--- NOTE | ~2017-06-13 | EKG ---
[address] [place] [address] ELECTROCARDIOGRAM REPORT Name: LUA,DERRICK Room #: 361-P ADM IN M.R.#: [id number] Admission: 06/13/17 Attend Phys: Hussain Vargas MD Discharge: Date of : 59 Report #: [id number] THIS REPORT FOR: //name// [facility] ED Test Date: 2017-06-13 Test Time: 08:14:17 Pat Name: SWAPNA LUA Department: Room: [facility] Gender: M Computer Security Specialist: krysten : 1955 Requested By: Cielo Veliz Order Number: [id number] MD: Michael Gonzales Measurements Intervals [place] Rate: 96 P: 74 MD: 188 QRS: -20 QRSD: 95 T: 42 QT: 333 QTc: 421 Interpretive Statements Sinus arrhythmia Abnormal R-wave progression, early transition ST elevation, consider pericarditis Compared to ECG 05/12/2017 18:49:[address] segment elevation is more prominent Electronically Signed On 06-13-2017 14:41:57 MANUAL WRITER by Michael Gonzales [email or web address] <ELECTRONICALLY SIGNED> By: Michael Gonzales MD, [facility] 06/13/17 1441 0814 Michael Gonzales MD, [facility] /EPI
--- NOTE | ~2017-06-13 | HC ---
[facility] [place] [address] CONSULTATION Name: SWAPNA LUA Room #: 361-P [facility] IN ..#: [id number] Admission: 06/13/17 Attend Phys: Hussain Vargas MD Discharge: 06/14/17 Date of : 59 Report #: [id number] THIS REPORT FOR: //name// CC: VIOLETTA physician/PCP Hussain Vargas DATE OF SERVICE: 06/13/2017 REASON FOR CONSULTATION: Chest pain. HISTORY OF PRESENT ILLNESS: The patient is a 61-year-old gentleman with multiple health problems including quadriplegia, chronic kidney disease, dyslipidemia, diabetes, vancomycin-resistant enterococci colonization, history of gastrointestinal blood loss, dyslipidemia who now presents with chest pain. He was discharged from the hospital about a week ago with abdominal pain and heme positive stools. His hospitalization was also notable for acute kidney injury related to one of multiple episodes of volume depletion. The patient reports a right-sided midsternal chest pain. There is a spot at the 5th intercostal junction that when palpated reproduces his pain. He denies a pleuritic or positional component. He denies heart failure symptoms including orthopnea, paroxysmal nocturnal dyspnea or lower extremity edema. Initial cardiac troponin is negative. Several serial EKGs have been performed, which demonstrate diffuse ST elevation of 1 mm with slight WI depression, old EKGs have been requested. MEDICATIONS: Include atorvastatin 10 mg daily, baclofen, Remeron, OxyContin, Questran, magnesium, scopolamine patch. ALLERGIES: No known drug allergies. PAST MEDICAL HISTORY: Notable for vancomycin-resistant enterococci colonization, multidrug resistant pseudomonas, right above-knee amputation, quadriplegia, neurogenic bladder, severe calorie and protein malnutrition, iron deficiency anemia. SOCIAL HISTORY: He is a nonsmoker. FAMILY HISTORY: Unremarkable for premature coronary artery disease. REVIEW OF SYSTEMS: All systems negative except as that noted above. PHYSICAL EXAMINATION: GENERAL: Reveals a chronically ill and debilitated gentleman who is alert. VITAL SIGNS: Blood pressure is 82/58, heart rate of 95 and regular, he is febrile to 99.8 degrees, 5 feet 5 inches tall, 110 pounds. HEENT: There is neither xanthelasma, subcutaneous xanthomata, oral mucosal or [address] [address] CONSULTATION Name: SWAPNA LUA Room #: 361-P [facility] IN [facility].#: [id number] Admission: 06/13/17 Attend Phys: Hussain Vargas MD Discharge: 06/14/17 Date of : 59 Report #: [id number] digital cyanosis or kyphoscoliosis present. CHEST: Clear to auscultation and percussion. CARDIAC: Regular rate and rhythm, normal S1, S2. ABDOMEN: Soft and nontender. EXTREMITIES: Radial pulses are 2+. NEUROLOGIC: Alert with a nonfocal exam. LABORATORY DATA: Sodium 135, potassium 3.1, creatinine 1.2. Troponin of 0. White count 9.2, hemoglobin 8.7, hematocrit 26, platelet count 254. Chest x-ray demonstrates bilateral infiltrates and cardiomegaly. CT scan from last week demonstrated osteomyelitis of the right hip. IMPRESSION: 1. Chest pain, probable pericarditis. 2. Quadriplegia. 3. Anemia, iron deficient. 4. Diabetes. 5. Severe protein calorie malnutrition. 6. Chronic vancomycin-resistant enterococci colonization. 7. Chronic kidney disease. RECOMMENDATIONS: 1. Sedimentation rate, CRP. 2. Echocardiogram. 3. Serial troponins. 4. I will see if I can get access to the EKG ice cream server, which is currently not working, for comparison to prior tracings. If his electrocardiographic changes are new, I would consider the possibility of pericarditis rather than injury. If these are old changes and chronically documented, the likelihood of a pericarditic process is substantially less. Thank you for asking me to participate in the care of this gentleman. <ELECTRONICALLY SIGNED> By: Michael Gonzales MD, FACC 06/15/17 0907 1205 1832 Michael Gonzales MD, FACC /nt
--- NOTE | ~2017-06-13 | 2DMMODE ---
[facility] [address] [place] [address] 2 D/M-MODE ECHOCARDIOGRAM Name: SWAPNA LUA Room #: 361-P ADM IN M.R.#: [id number] Admission: 06/13/17 Attend Phys: Hussain Vargas MD Discharge: Date of : 59 Date of Service: 06/13/17 1412 Report #: [id number] THIS REPORT FOR: //name// APPROVED REPORT Study performed: 06/13/2017 12:27:42 EXAM: Comprehensive 2D, Doppler, and color-flow Echocardiogram Patient Location: Bedside Room #: 361 Status: routine BSA: 10.90 HR: 91 bpm BP: 82/58 mmHg Other Information Study Quality: Adequate Indications Diabetes MRSA, Hyperlipidemia 2D Dimensions LVEF(%): 57.10 (>50%) IVSd: 8.22 (7-11mm) LVOT Diam: 22.95 (18-24mm) LVDd: 45.38 mm PWd: 15.24 (7-11mm) Ascending Ao: 31.93 (22-36mm) LVDs: 31.84 (25-40mm) Aortic Root: 33.42 mm Negrete's LVEF: 57.10 % Volumes Left Atrial Volume (Systole) Single Plane 4CH: 17.14 mL Single Plane 2CH: 37.38 mL Aortic Valve LVOT Max P.62 mmHg LVOT Max V: 0.81 m/s Mitral Valve E/A Ratio: 1.1 MV Decel. Time: 243.13 ms MV E Max Sergio.: 0.83 m/s MV A Sergio.: 0.78 m/s MV PHT: 70.51 ms [facility] [address] [address] 2 D/M-MODE ECHOCARDIOGRAM Name: SWAPNA LUA Room #: 361-[facility] IN ..#: [id number] Admission: 06/13/17 Attend Phys: Hussain Vargas MD Discharge: Date of : 59 Date of Service: 06/13/17 1412 Report #: [id number] IVRT: 83.04 ms Pulmonary Valve PV Peak Sergio.: 0.90 m/s PV Peak Gr.: 3.27 mmHg Pulmonary Vein P Vein S: 0.56 m/s P Vein A: 0.36 m/s P Vein D: 0.29 m/s P Vein A Dur.: 124.6 msec P Vein S/D Ratio: 1.93 Tricuspid Valve TR Peak Sergio.: 1.89 m/s TR Peak Gr.: 14.22 mmHg Left Ventricle The left ventricle is normal size. There is normal LV segmental wall motion. There is normal left ventricular wall thickness. The left ventricular systolic function is normal. The left ventricular ejection fraction is within the normal range. LVEF is 55-60%. Grade I - abnormal relaxation pattern. Right Ventricle The right ventricle is normal size. The right ventricular systolic function is normal. Atria The left atrium size is normal. The right atrium size is normal. Aortic Valve The aortic valve is normal in structure. No aortic regurgitation is present. There is no aortic valvular stenosis. Mitral Valve The mitral valve is normal in structure. There is no mitral valve regurgitation noted. No evidence of mitral valve stenosis. Tricuspid Valve The tricuspid valve is normal in structure. There is no tricuspid valve regurgitation noted. Pulmonic Valve The pulmonary valve is normal in structure. There is no pulmonic valvular regurgitation. [employer] [facility] [address] [place] [address] 2 D/M-MODE ECHOCARDIOGRAM Name: SWAPNA LUA Room #: 361-P [facility] IN .R.#: [id number] Admission: 06/13/17 Attend Phys: Hussain Vargas MD Discharge: Date of : 59 Date of Service: 06/13/17 1412 Report #: [id number] The aortic root is normal in size. IVC is normal in size and collapses >50% with inspiration. Pericardium Small-moderate pericardial effusion. No tamponade <Conclusion> The left ventricular systolic function is normal. There is normal LV segmental wall motion. LVEF is 55-60%. Grade I - abnormal relaxation pattern. The aortic valve is normal in structure. No aortic regurgitation or stenosis The mitral valve is normal in structure. No mitral valve regurgitation noted. Small-moderate pericardial effusion. No tamponade <ELECTRONICALLY SIGNED> By: Michael Gonzales MD, FACC 06/13/171411 11 11 Michael Gonzales MD, FAC /INF
--- NOTE | ~2017-06-13 | EKG ---
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: janna : 1955 Requested By: Hussain Vargas Order Number: [id number] MD: Michael Gonzales Measurements Intervals [place] Rate: 93 P: 72 ID: 193 QRS: -17 QRSD: 90 T: 32 QT: 345 QTc: 430 Interpretive Statements Sinus rhythm Atrial premature complexes Diffuse ST elevation, consider pericarditis Compared to ECG 05/12/2017 18:49:39 No significant change was found Electronically Signed On 06-13-2017 14:43:46 BIG DATA DEVELOPER by Michael Gonzales [email or web address] <ELECTRONICALLY SIGNED> By: Michael Gonzales MD, [facility] 06/13/17 1443 1033 1033 Michael Gonzales MD, [facility] /EPI
[~2017-06-13 07:55] MED LIST changes: +ONDANSETRON HCL4 M2 PO
[2017-06-13 07:56] VITALS: BP 109/63
[2017-06-13 08:13] LABS: ABSOLUTE NEUTROPHILS 7.2 thou/uL (1.4-8.2); BASOPHILS 0.5 % (0.0-2.0); EOSINOPHILS 3.4 % (0.0-3.0); HEMOGLOBIN 8.7 gm/dL (14.0-18.0); MCH 30.6 pg (26.0-34.0); MCHC 33.5 g/dL (28.0-37.0); MCV 91.2 fL (80.0-100.0); MONOCYTES 10.9 % (1.0-8.0); PLATELET COUNT 254 thou/uL (150-400); POLYS 78.2 % (36.0-66.0); RBC 2.85 mil/uL (4.50-6.00); RDW 15.9 % (10.5-14.5); WBC 9.2 thou/uL (4.0-11.0)
[2017-06-13 08:18] LABS: ANION GAP 9 mmol/L (7-16); BUN 33 mg/dL (7-18); CALCIUM 7.5 mg/dL (8.5-10.1); CHLORIDE 103 mmol/L (98-107); CO2 23 mmol/L (21-32); CREATININE 1.2 mg/dL (0.7-1.3); GLUCOSE 141 mg/dL (74-106); POTASSIUM 3.1 mmol/L (3.5-5.1); SODIUM 135 mmol/L (136-145)
[2017-06-13 08:26] LABS: TROPONIN-I < 0.04 ng/mL (<0.06)
[2017-06-13] MEDS ORDERED: SCOPOLAMINE1 EACH TRANSDERM ×2 (09:10)
[2017-06-13 09:30] VITALS: BP 85/62
[2017-06-13 09:58] VITALS: BP 81/56
[2017-06-13 10:19] VITALS: BP 82/58
[2017-06-13 16:04] VITALS: BP 111/60
[2017-06-13 20:27] VITALS: BP 124/99
[2017-06-14 00:30] VITALS: BP 89/55
[2017-06-14 03:13] VITALS: BP 87/63
[2017-06-14 04:16] LABS: CALCIUM 7.2 mg/dL (8.5-10.1); CREATININE 1.1 mg/dL (0.7-1.3); MAGNESIUM 1.7 mg/dL (1.8-2.4); POTASSIUM 4.5 mmol/L (3.5-5.1)
[2017-06-14 05:17] LABS: HEMATOCRIT 25.6 % (42.0-52.0); HEMOGLOBIN 8.5 gm/dL (14.0-18.0); MCH 30.7 pg (26.0-34.0); MCHC 33.3 g/dL (28.0-37.0); MCV 92.2 fL (80.0-100.0); RBC 2.77 mil/uL (4.50-6.00)
[2017-06-14 07:15] VITALS: BP 103/56
[2017-06-14 12:03] VITALS: BP 105/66
[2017-06-14] MEDS ORDERED: ASPIRIN325 PO (13:47)
[2017-06-14] MEDS ORDERED: COLCHICINE0.6 MG PO (13:48)
[2017-08-24] MEDS ORDERED: JUVEN PACKET1 EAC1 PO (15:07)
[2017-08-24] MEDS ORDERED: REMERON15 M2 PO (15:08)
[2017-08-24] MEDS ORDERED: ROBITUSSIN100 MG/53 PO (15:12)
[2017-12-09] MEDS ORDERED: LEVAQUIN 750 M750 MG PER TUBE (18:13)
[2017-12-11] MEDS ORDERED: OXYCONTIN10 M1 PER TUBE (18:16)
[2017-12-11] MEDS ORDERED: VALIUM5 MG PO (18:17)
[2017-12-11] MEDS ORDERED: ARANESP 6060 MCG/0.3 SUBQ (18:19)
== END 2017-06-14 17:03 | DRG 314 ==
LOC: ER 07:55 → EROBS 09:07 → 3W 09:07
PROVIDERS: Emergency Medicine; Hospitalist
DX: I31.9 Disease of pericardium, unspecified (principal); G82.50 Quadriplegia, unspecified; E43 Unspecified severe protein-calorie malnutrition; L89.154 Pressure ulcer of sacral region, stage 4; N17.9 Acute kidney failure, unspecified; J90 Pleural effusion, not elsewhere classified; N18.9 Chronic kidney disease, unspecified; E11.22 Type 2 diabetes mellitus with diabetic chronic kidney disease; E03.9 Hypothyroidism, unspecified; K21.9 Gastro-esophageal reflux disease without esophagitis; E78.5 Hyperlipidemia, unspecified; K59.00 Constipation, unspecified; E83.42 Hypomagnesemia; I95.9 Hypotension, unspecified; E87.6 Hypokalemia; I12.9 Hypertensive chronic kidney disease with stage 1 through stage 4 chronic kidney disease, or unspecified chronic kidney disease; A49.01 Methicillin susceptible Staphylococcus aureus infection, unspecified site; Z16.21 Resistance to vancomycin; N31.9 Neuromuscular dysfunction of bladder, unspecified; I48.91 Unspecified atrial fibrillation; D50.9 Iron deficiency anemia, unspecified; Z89.611 Acquired absence of right leg above knee; Z86.718 Personal history of other venous thrombosis and embolism; Z93.3 Colostomy status
CPT/HCPCS: 10879

== ENCOUNTER 2017-06-18 13:49 | Emergency (ER) | payer OTHER ==
[~2017-06-18] VITALS: Ht 165.1 cm; Wt 49.9 kg
--- NOTE | ~2017-06-18 | EKG ---
[place] [address] [place] [address] ELECTROCARDIOGRAM REPORT Name: CHANELLSWAPNA [id number] Admission: 06/18/17 Attend Phys: Discharge: Date of : 59 Report #: [id number] THIS REPORT FOR: //name// [facility] ED Test Date: 2017-06-18 Test Time: 14:53:51 Pat Name: SWAPNA LUA Department: Room: Gender: M Case Picker: ALISON : 1955 Requested By: Cielo Veliz Order Number: [id number] MD: Measurements Intervals [place] Rate: 72 P: 24 UT: 174 QRS: -14 QRSD: 88 T: 46 QT: 382 QTc: 419 Interpretive Statements Sinus rhythm Borderline low voltage, extremity leads Abnormal R-wave progression, early transition Minimal ST elevation, inferior leads Compared to ECG 06/14/2017 10:32:53 Sinus tachycardia no longer present Atrial premature complex(es) no longer present ST (T wave) deviation still present [email or web address] By: 1453 1453 Epiphany Ep[facility]any, /EPI
[~2017-06-18 13:49] MED LIST changes: +ASPIRIN325 PO; +COLCHICINE0.6 MG PO; +SCOPOLAMINE1 EACH TRANSDERM
[2017-06-18 14:24] LABS: HEMATOCRIT 25.9 % (42.0-52.0); HEMOGLOBIN 8.5 gm/dL (14.0-18.0); MCH 30.3 pg (26.0-34.0); MCHC 32.8 g/dL (28.0-37.0); MCV 92.4 fL (80.0-100.0); PLATELET COUNT 329 thou/uL (150-400); RDW 16.2 % (10.5-14.5); WBC 5.8 thou/uL (4.0-11.0)
[2017-06-18 14:34] LABS: ANION GAP 12 mmol/L (7-16); BUN 34 mg/dL (7-18); CALCIUM 8.3 mg/dL (8.5-10.1); CHLORIDE 114 mmol/L (98-107); CO2 17 mmol/L (21-32); CREATININE 1.3 mg/dL (0.7-1.3); GLUCOSE 123 mg/dL (74-106); POTASSIUM 5.6 mmol/L (3.5-5.1); SODIUM 143 mmol/L (136-145)
[2017-06-18 14:43] LABS: TROPONIN-I < 0.04 ng/mL (<0.06)
[2017-06-18 14:44] LABS: ABSOLUTE NEUTROPHILS 4.1 thou/uL (1.4-8.2)
[2017-06-18 14:45] LABS: ANISOCYTOSIS 1+
[2017-06-18 19:43] VITALS: BP 132/87
[2017-08-24] MEDS ORDERED: JUVEN PACKET1 EAC1 PO (15:07)
[2017-08-24] MEDS ORDERED: REMERON15 M2 PO (15:08)
[2017-08-24] MEDS ORDERED: ROBITUSSIN100 MG/53 PO (15:12)
[2017-12-09] MEDS ORDERED: LEVAQUIN 750 M750 MG PER TUBE (18:13)
[2017-12-11] MEDS ORDERED: OXYCONTIN10 M1 PER TUBE (18:16)
[2017-12-11] MEDS ORDERED: VALIUM5 MG PO (18:17)
[2017-12-11] MEDS ORDERED: ARANESP 6060 MCG/0.3 SUBQ (18:19)
== END 2017-06-18 19:45 ==
LOC: ER 13:49
PROVIDERS: Emergency Medicine
DX: R07.89 Other chest pain (principal); E86.0 Dehydration; R09.1 Pleurisy; I12.9 Hypertensive chronic kidney disease with stage 1 through stage 4 chronic kidney disease, or unspecified chronic kidney disease; E11.22 Type 2 diabetes mellitus with diabetic chronic kidney disease; N18.9 Chronic kidney disease, unspecified; K21.9 Gastro-esophageal reflux disease without esophagitis; E78.5 Hyperlipidemia, unspecified; E03.9 Hypothyroidism, unspecified; Z86.2 Personal history of diseases of the blood and blood-forming organs and certain disorders involving the immune mechanism

== ENCOUNTER 2017-07-30 17:23 | Inpatient (IN) | payer OTHER, MEDICARE ==
[~2017-07-30] VITALS: Ht 165.1 cm; Wt 52.6 kg
--- NOTE | ~2017-07-30 | HC ---
[facility] [place] [address] CONSULTATION Name: SWAPNA LUA Room #: 422-P ADM IN M.R.#: [id number] Admission: 07/31/17 Attend Phys: Sangeeta Barnett Discharge: Date of : 59 Report #: [id number] THIS REPORT FOR: //name// CC: Michael Wadsworth DATE OF SERVICE: 07/31/2017 PERSONAL PHYSICIAN: None on staff. CHIEF COMPLAINT: Multiple chronic decubitus ulcerations. HISTORY OF PRESENT ILLNESS: This is a 62-year-old black male who we followed several times in the past for multiple decubitus ulcers in his bilateral ischial region and sacrococcygeal region. All these have been stage 4. The patient is currently at a facility and was complaining yesterday of chest pain and cough. The patient was brought to the Emergency Department and admitted for evaluation of the chest pain. The patient states he thinks his wounds have actually been doing fairly well. The patient has no new wounds at this time. 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 History of C. difficile enteritis. 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 History of quadriplegia with bilateral upper extremity contractures, status post diverting colostomy and a urostomy. Type 2 diabetes, hypertension. DRUG ALLERGIES: None. SOCIAL HISTORY: The patient resides in a care facility. FAMILY HISTORY: Not pertinent to current medical condition. REVIEW OF SYSTEMS: CONSTITUTIONAL: The patient denies fever or chills. NEUROLOGIC: The patient complains of overall generalized weakness. EYES: No complaints. ENT: No complaints. CARDIAC: The patient had chest pain yesterday, but denies palpitations or peripheral edema. RESPIRATORY: The patient denies shortness of breath, but does have associated cough. GASTROINTESTINAL: The patient has no nausea or vomiting. GENITOURINARY: The patient denies urgency or frequency. The patient does have a urostomy. MUSCULOSKELETAL AND SKIN: The patient has open ulcerations, stage 4 chronic [facility] [address] [place] [address] CONSULTATION Name: LUASWAPNA Room #: 422-P [facility] IN M.R.#: [id number] Admission: 07/31/17 Attend Phys: Sangeeta Barnett Discharge: Date of : 59 Report #: [id number] ulcerations in the bilateral ischial and sacrococcygeal area as well as left heel. PHYSICAL EXAMINATION: VITAL SIGNS: Temperature 36.4, pulse 60, respirations 18, BP 104/72. GENERAL: This is an alert and oriented to person, place and time, elderly black male who appears much older than his stated age. HEENT: Normocephalic, atraumatic. Extraocular movements are dry. Pupils are round. Sclerae white. NECK: Supple. LUNGS: Has bibasilar crackles. HEART: Regular, without murmur. ABDOMEN: Soft, otherwise nontender. Ostomy is intact and functioning. EXTREMITIES: The patient has right hip disarticulation without any open ulcerations on the bilateral ischial areas, stage 4 decubitus ulcer, which are otherwise clean, granulating with periulcers intact without erythema, warmth or cellulitis. There is no tunneling or tracking. Sacrococcygeal ulcer is also clean, granulating without exposed deeper structures. Periulcers intact. Evaluation of left heel reveals a stage 3 decubitus ulcer, which is resolving with small amount of periulcer callus, minimal serosanguineous drainage noted without odor. NEUROLOGIC: The patient is quadriplegic. LABORATORY DATA: White count 3.9, hemoglobin 10.8, BUN 66, creatinine 1.4. Hemoglobin A1c was 4.7. C-reactive protein is 229, albumin markedly low at 1.8. IMPRESSION: 1. Chronic stage 4 decubitus ulcers to the sacrococcygeal region, present on admission. 2. Chronic ulcerations, bilateral ischial tuberosity, resolving, stage 4, present on admission. 3. Stage 3 decubitus ulcer, left heel, present on admission. 4. Severe protein calorie malnutrition with albumin of 1.8. 5. Quadriplegia with debility. 6. Chest pain. 7. Diabetes mellitus. PLAN: At this time, we will start silver alginate to all the open ulcerations, cover this with ABDs, change daily. I will have the patient in a low air loss mattress, having turned every 2 hours. Maximize the patient's oral protein supplementation for healing. We will utilize physical and occupational therapy [address] [address] CONSULTATION Name: SWAPNA LUA Room #: 422-P ADM IN M.R.#: [id number] Admission: 07/31/17 Attend Phys: Sangeeta Barnett Discharge: Date of : 59 Report #: [id number] for strengthening. Continue all his current medicines at this time. Infectious Disease has also been consulted. We will continue to follow the patient. <ELECTRONICALLY SIGNED> By: Joe Daniel MD 08/04/17 0813 0948 1033 Joe Daniel MD /nt
--- NOTE | ~2017-07-30 | EKG ---
[address] [place] [address] ELECTROCARDIOGRAM REPORT Name: SWAPNA LUA Room #: 422-P [facility] M.R.#: [id number] Admission: 07/30/17 Attend Phys: Maciej Wadsworth DO Discharge: Date of : 59 Report #: [id number] THIS REPORT FOR: //name// 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: keegan : 1955 Requested By: Angelita Briscoe Order Number: [id number] MD: Michael Gonzales Measurements Intervals [place] Rate: 90 P: 65 NE: 197 QRS: -36 QRSD: 84 T: 64 QT: 351 QTc: 430 Interpretive Statements Sinus rhythm Left axis deviation Low voltage, extremity leads Abnormal R-wave progression, early transition Compared to ECG 06/18/2017 14:53:51 Left-axis deviation now present Electronically Signed On 07-31-2017 8:20:33 CDT by Michael Gonzales [email or web address] <ELECTRONICALLY SIGNED> By: Michael Gonzales MD, [facility] 07/31/17 0820 1738 1738 Michael Gonzales MD, [facility] /EPI
[2017-07-30 17:24] VITALS: BP 85/55
[2017-07-30] MEDS ORDERED: ARGINAID POWDE1 EACH PO (17:39)
[2017-07-30] MEDS ORDERED: IRON325 PO (17:40)
[2017-07-30] MEDS ORDERED: BENADRYL25 MG PO (17:40)
[2017-07-30] MEDS ORDERED: VALIUM5 MG PO (17:40)
[2017-07-30] MEDS ORDERED: ENSURE113 GM PO (17:40)
[2017-07-30] MEDS ORDERED: FOLIC ACID1 MG PER TUBE (17:41)
[2017-07-30] MEDS ORDERED: LEXAPRO 10 MG T10 M2 PER TUBE (17:41)
[2017-07-30] MEDS ORDERED: KIONEX15 GM/60 M PO (17:41)
[2017-07-30] MEDS ORDERED: REGLAN 10 MG TA10 MG PO (17:41)
[2017-07-30] MEDS ORDERED: OXYBUTYNIN 5 MG5 M2 PER TUBE (17:42)
[2017-07-30] MEDS ORDERED: MIRALAX17 G1 PO (17:42)
[2017-07-30] MEDS ORDERED: OMEPRAZOLE20 M1 PO (17:42)
[2017-07-30] MEDS ORDERED: SANTYL OINTMENT30 G1 TOP (17:43)
[2017-07-30] MEDS ORDERED: SENNA8.6 MG PO (17:43)
[2017-07-30] MEDS ORDERED: ROBITUSSIN100 MG/53 PER TUBE (17:43)
[2017-07-30] MEDS ORDERED: SODIUM BICARBO650 M3 PER TUBE (17:44)
[2017-07-30 18:06] LABS: URINE BILIRUBIN NEGATIVE (Negative); URINE BLOOD TRACE (Negative); URINE CLARITY CLEAR; URINE COLOR YELLOW; URINE GLUCOSE-RANDOM* NEGATIVE (Negative); URINE KETONES NEGATIVE (Negative); URINE LEUKOCYTES TRACE (Negative); URINE NITRITE NEGATIVE (Negative); URINE PROTEIN (DIPSTICK) 2+ (Negative); URINE UROBILINOGEN 0.2 E.U./dl (0.2-1.0)
[2017-07-30 18:07] LABS: ABSOLUTE NEUTROPHILS 2.4 thou/uL (1.4-8.2); BASOPHILS 0.9 % (0.0-2.0); HEMATOCRIT 33.8 % (42.0-52.0); HEMOGLOBIN 10.8 gm/dL (14.0-18.0); LYMPHOCYTES 17.8 % (24.0-44.0); MCH 27.4 pg (26.0-34.0); MCHC 31.8 g/dL (28.0-37.0); MCV 86.2 fL (80.0-100.0); PLATELET COUNT 157 thou/uL (150-400); POLYS 62.3 % (36.0-66.0); RBC 3.92 mil/uL (4.50-6.00); RDW 17.1 % (10.5-14.5); WBC 3.9 thou/uL (4.0-11.0)
[2017-07-30 18:15] LABS: BACTERIA 1-9 Few /HPF (None Seen); CALCIUM 8.3 mg/dL (8.5-10.1); CASTS None Seen /LPF (None Seen); CREATININE 1.4 mg/dL (0.7-1.3); CRYSTALS None Seen /LPF (None Seen); POTASSIUM 5.9 mmol/L (3.5-5.1); SQUAMOUS None Seen /LPF (0-3); URINE RBC None Seen /HPF (0-2); URINE WBC None Seen /HPF (0-5)
[2017-07-30 18:21] LABS: ALBUMIN 1.8 g/dL (3.4-5.0); TOTAL BILIRUBIN 0.3 mg/dL (<0.1-1.0); TOTAL PROTEIN 7.4 g/dL (6.4-8.2)
[2017-07-30 20:05] VITALS: BP 87/53
[2017-07-30 20:30] VITALS: BP 91/64
[2017-07-31 00:02] LABS: BE(vivo) -3.9 mmol/L (-2 to +3); HCO3 21.4 mmol/L (22.0-26.0); PCO2 39.8 mmHg (35.0-45.0); PO2 75.7 mmHg (80.0-100.0); pH 7.349 (7.360-7.450); sO2 94.6 % (92.0-98.0)
[2017-07-31 04:30] VITALS: BP 104/72
[2017-07-31 20:45] VITALS: BP 117/74
[2017-08-01 02:56] VITALS: BP 96/66
[2017-08-01 08:15] VITALS: BP 102/68
[2017-08-01 19:10] VITALS: BP 114/71
[2017-08-02 03:47] VITALS: BP 97/67
[2017-08-02 07:45] VITALS: BP 109/74
[2017-08-02 13:44] LABS: CALCIUM 6.8 mg/dL (8.5-10.1); CREATININE 1.3 mg/dL (0.7-1.3); POTASSIUM 3.1 mmol/L (3.5-5.1)
[2017-08-02 19:38] VITALS: BP 113/69
[2017-08-03 04:12] VITALS: BP 127/92
[2017-08-03 07:50] VITALS: BP 107/78
[2017-08-03] MEDS ORDERED: LEVAQUIN 500 M500 M2 PO (10:19)
[2017-08-03] MEDS ORDERED: OXYCONTIN10 M1 PER TUBE (10:19)
[2017-08-03] MEDS ORDERED: ASPIR 8181 MG PO (10:19)
[2017-08-03] MEDS ORDERED: KIONEX15 GM/60 M PO (10:20)
[2017-08-03] MEDS ORDERED: COLCHICINE0.6 MG PO (10:25)
[2017-08-03 15:40] VITALS: BP 115/78
[2017-08-03 20:00] VITALS: BP 108/77
[2017-08-04 04:30] VITALS: BP 109/73
[2017-08-04 07:18] VITALS: BP 131/80
[2017-08-04 08:18] VITALS: BP 131/80
[2017-08-04 11:16] LABS: CALCIUM 7.8 mg/dL (8.5-10.1); CREATININE 1.1 mg/dL (0.7-1.3); POTASSIUM 3.2 mmol/L (3.5-5.1)
[2017-08-04 11:40] VITALS: BP 146/90
[2017-08-04 16:30] VITALS: BP 90/60
[2017-08-04 19:49] VITALS: BP 87/59
[2017-08-05 03:03] VITALS: BP 92/60
[2017-08-24] MEDS ORDERED: JUVEN PACKET1 EAC1 PO (15:07)
[2017-08-24] MEDS ORDERED: REMERON15 M2 PO (15:08)
[2017-08-24] MEDS ORDERED: ROBITUSSIN100 MG/53 PO (15:12)
[2017-12-09] MEDS ORDERED: LEVAQUIN 750 M750 MG PER TUBE (18:13)
[2017-12-11] MEDS ORDERED: OXYCONTIN10 M1 PER TUBE (18:16)
[2017-12-11] MEDS ORDERED: VALIUM5 MG PO (18:17)
[2017-12-11] MEDS ORDERED: ARANESP 6060 MCG/0.3 SUBQ (18:19)
== END 2017-08-05 17:39 | DRG 871 ==
LOC: ER 17:23 → EROBS 19:08 → 4E 19:40
PROVIDERS: Hospitalist; Nurse Practitioner Acute Care; Nurse Practitioner Family
DX: A41.9 Sepsis, unspecified organism (principal); J18.9 Pneumonia, unspecified organism; E43 Unspecified severe protein-calorie malnutrition; G82.50 Quadriplegia, unspecified; L89.154 Pressure ulcer of sacral region, stage 4; L89.623 Pressure ulcer of left heel, stage 3; L89.894 Pressure ulcer of other site, stage 4; N17.9 Acute kidney failure, unspecified; I31.9 Disease of pericardium, unspecified; M86.68 Other chronic osteomyelitis, other site; J90 Pleural effusion, not elsewhere classified; Z68.1 Body mass index [BMI] 19.9 or less, adult; E87.5 Hyperkalemia; N18.3 Chronic kidney disease, stage 3 (moderate); E11.22 Type 2 diabetes mellitus with diabetic chronic kidney disease; R13.10 Dysphagia, unspecified; I48.0 Paroxysmal atrial fibrillation; E11.69 Type 2 diabetes mellitus with other specified complication; R53.81 Other malaise; I95.9 Hypotension, unspecified; F41.9 Anxiety disorder, unspecified; F32.9 Major depressive disorder, single episode, unspecified; E78.5 Hyperlipidemia, unspecified; K21.9 Gastro-esophageal reflux disease without esophagitis; I12.9 Hypertensive chronic kidney disease with stage 1 through stage 4 chronic kidney disease, or unspecified chronic kidney disease; Z93.1 Gastrostomy status
CPT/HCPCS: 10183

== ENCOUNTER 2017-09-07 15:00 | Inpatient (IN) | payer OTHER ==
[~2017-09-07] VITALS: Ht 165.1 cm; Wt 49.3 kg
--- NOTE | ~2017-09-07 | EEG ---
[facility] [address] [place] [address] ELECTROENCEPHALOGRAM Name: SWAPNA LUA Room #: 360-P ADM IN M.R.#: [id number] Admission: 09/07/17 Attend Phys: Riki Sue MD Discharge: Date of : 59 Report #: [id number] THIS REPORT FOR: //name// CC: Beau Sue DATE OF SERVICE: 09/10/2017 This patient is being evaluated for altered mental status. EEG was done by placing the electrode by standard 10-20 system of electrode placement. Both referential and sequential montages were used for recording. A lot of artifact is present because the patient is not able to cooperate much. Background activity does appear to be about 9 Hz and 30 microvolts. It is a symmetrical activity. He starts having some chewing movement and a lot of artifact is present. Photic stimulation was unremarkable. This patient did become drowsy that is associated with bilateral slowing. Throughout the record, no active epileptiform activity was noticed. IMPRESSION: This patient's EEG is intermixed with theta range slowing on both sides. That is a nonspecific abnormality, which can occur with dementia, encephalopathy, effect of psychotropic medication. No active epileptiform activity was noticed. Thank you very much for this referral. <ELECTRONICALLY SIGNED> By: Lwo Ricci MD 09/11/17 0957 1630 1639 MD sukhi Simms
--- NOTE | ~2017-09-07 | HC ---
[facility] [place] [address] CONSULTATION Name: SWAPNA LUA Room #: 360-P ADM IN M.R.#: [id number] Admission: 09/07/17 Attend Phys: Riki Sue MD Discharge: Date of : 59 Report #: [id number] THIS REPORT FOR: //name// CC: Beau Sue DATE OF SERVICE: 09/10/2017 ATTENDING PHYSICIAN: Riki Sue MD. REASON FOR CONSULTATION: Single positive blood culture, possible need for antibiotic. HISTORY OF PRESENT ILLNESS: The patient is a 62-year-old man known to me from multiple previous hospitalizations at [facility]. The patient resides with [facility] and is under the care of Dr. Beau Spears. During bathing, the patient developed uncontrolled shivering and transferred to the Emergency Room where he is found hypotensive. He is given parenteral fluids and antibiotics. Blood pressure gets better and so is the azotemia. The patient had an EEG and evaluation by Dr. Ricci, but no evidence of seizure activity detected by EEG. The CT scan of the brain revealed no significant acute abnormalities. PAST MEDICAL HISTORY: Quadriplegia with a sacral decubitus, stage 4. Previous history of infection, VRE multiple drug resistant Pseudomonas, chronic pelvic osteomyelitis. Diabetes mellitus type 2. Status post right AKA and hip disarticulation. The patient has a colostomy and ileal conduit and percutaneous gastrostomy. SOCIAL HISTORY: See H and P old records. Resides in local [facility]. FAMILY HISTORY: Unable to obtain. REVIEW OF SYSTEMS: The patient tells me that he needs a lamp to be given to Priyank that is by his left hand side. Actually, there is no one else in the room by the patient and myself and there is no such person as he sees. Obviously, he is having some visual hallucinations. DRUG ALLERGIES: None listed. MEDICATIONS: The patient is on mirtazapine, diazepam, Rocephin 1 gram IV daily since 09/09/2017, colchicine 0.6 mg daily, aspirin, sennoside, oxybutynin, folic acid, ascorbic acid, pantoprazole, multivitamin, oxycodone immediate release p.r.n., octreotide t.i.d., subcutaneous heparin, has received a single gram of vancomycin yesterday. He is also on atorvastatin, sodium bicarbonate, guaifenesin, Benadryl p.r.n., baclofen, acetaminophen p.r.n., polyethylene [address] [address] CONSULTATION Name: SWAPNA LUA Room #: 360-P [facility] IN M.R.#: [id number] Admission: 09/07/17 Attend Phys: Riki Sue MD Discharge: Date of : 59 Report #: [id number] glycol daily, p.r.n. ondansetron, D5 normal saline 1000 mL every 8 hours intravenously. PHYSICAL EXAMINATION: GENERAL: Chronically ill-appearing man. VITAL SIGNS: On admission, he is hypotensive with blood pressure 78/45 and tachycardic with a pulse of 100. Today's vital signs revealed the following: Temperature 98.5, pulse 104, respirations 17, BP 156/84. Height 5 feet 5 inches, weight 110 pounds. HEENMT: Pupils reactive. Mouth with severe periodontal disease. NECK: Stiff. The patient is stiff all over. LUNGS: Crackles left base posteriorly. HEART: S1, S2. No gallop. ABDOMEN: With multiple surgical scars with diverting colostomy on the left side, soft stools in the ostomy, percutaneous gastrostomy left-side and ileal conduit. BACK: Unable to perform due to inability to move the patient in bed. He does have a stage IV sacral decubitus. EXTREMITIES: Reveal right AKA, hip disarticulation and a stage I-II left heel decubitus. NEUROLOGIC: Revealed quadriplegia. CHEST: Revealed right infraclavicular tunneled central venous catheter. LABORATORY DATA: Sodium 143, potassium 3.6, CO2 low at 19 mmol/L. BUN on admission 100, creatinine 1.9; those dropped to 49 and 1.4 mg/dL today. Alkaline phosphatase persistently elevated 259. Serum albumin 1.8 g/dL. NT-proBNP elevated 8399. WBC 4.8, hemoglobin 7.7, platelets 331,000. White blood cell count differential reveals 70% segmented neutrophils. TSH normal. Folate greater than 40. Vitamin B12 normal. Urinalysis revealed 3+ protein, 3+ blood, 2+ leukocyte esterase. The microscopic exam revealed pyuria, bacteriuria, not an unexpected finding in a patient with ileal conduit. MICROBIOLOGY DATA: One out of two blood cultures obtained on the date of admission 09/07/2017 revealed gram-positive cocci consistent with Staphylococcus species yesterday, suspect very likely a contaminant, though with a central venous catheter, possibility of catheter sepsis with a coagulase negative Staphylococcus is a possibility. RADIOLOGY EVALUATION: Chest x-ray revealed persistent, slightly improved left lower lobe infiltrate, effusion, wedge-shaped infiltrate left hilar region. CT scan of the brain revealed no acute intracranial process. Renal ultrasound, mild bilateral renal caliectasis evident on previous CT scan, multiple bilaterally. ASSESSMENT: 1. Shivering and hypotension, question secondary to infection. [facility] [address] [place] [address] CONSULTATION Name: SWAPNA LUA Room #: 360-P [facility] IN M.R.#: [id number] Admission: 09/07/17 Attend Phys: Riki Sue MD Discharge: Date of : 59 Report #: [id number] 2. Single positive blood culture with Staphylococcus species, question contaminant versus catheter sepsis. 3. Altered mental status, visual hallucination. 4. Quadriplegia. 5. Right-sided tunneled infraclavicular central venous catheter. 6. Status post diverting colostomy, ileal conduit and percutaneous gastrostomy. 7. Quadriplegia. 8. Stage IV sacral decubitus. 9. Status post right above knee amputation. SUGGESTIONS AND RECOMMENDATION: We will continue treatment with vancomycin 1 gram daily. We will discontinue Rocephin. Continue local wound care. Dr. Sue, thank you for requesting my suggestions in the care of your patient. <ELECTRONICALLY SIGNED> By: Maurice Watson MD 09/11/17 1134 1039 1724 Maurice Watson MD /nt
--- NOTE | ~2017-09-07 | EEG ---
[facility] [place] [address] ELECTROENCEPHALOGRAM Name: SWAPNA LUA Room #: 360-P [facility] IN M.R.#: [id number] Admission: 09/07/17 Attend Phys: Riki Sue MD Discharge: Date of : 59 Report #: [id number] THIS REPORT FOR: //name// CC: Beau Sue DATE OF SERVICE: 09/08/2017 This patient is being evaluated for the possibility of seizure. EEG was done by placing the electrode by standard 10/20 system of electrode placement. Both referential and sequential montages were used for recording. Background activity in this patient is about 7 Hz and 15 microvolt. It is a low voltage activity. The patient appeared to be asleep and that is associated with bilaterally symmetrical sleep spindle and vertex sharp wave. Photic stimulation is unremarkable. No active epileptiform activity was noticed during this record. IMPRESSION: This patient's study does not demonstrate any active epileptiform activity. EEG is slow and poorly formed. That is a nonspecific abnormality, which can occur with encephalopathy, effect of psychotropic medication, dementia, etc. Clinical correlation is recommended. <ELECTRONICALLY SIGNED> By: Low Ricci MD 09/08/17 2209 51 06 Low Ricci MD /nt
--- NOTE | ~2017-09-07 | HC ---
[facility] [place] [address] CONSULTATION Name: SWAPNA LUA Room #: 360-P ADM IN M.R.#: [id number] Admission: 09/07/17 Attend Phys: Riki Sue MD Discharge: Date of : 59 Report #: [id number] THIS REPORT FOR: //name// CC: Beau Sue DATE OF SERVICE: 09/08/2017 HISTORY OF PRESENT ILLNESS: This is a 62-year-old male patient who was evaluated by me for the possibility of seizure. I talked to the hospitalist, Dr. Sue, and nurse looking after this patient. This patient indicates that he does not remember anything about these episodes of seizures. He was apparently found shaking. It was moderately severe. It started spontaneously and then became better spontaneously. From the record, it looks like it was associated with hypotension and renal problem. His GFR is low and this patient is also anemic. Anemia is out of proportion to what is expected with renal problem. REVIEW OF SYSTEMS: Indicate that this patient said he had injury long time ago, which left him with quadriplegia. He had multidrug resistant Pseudomonas, C. diff. He has a history of renal failure. According to the record, he had history of colostomy, osteomyelitis, hypertension, ileus, and hypothyroidism. I carried out 14-point review of system partly from him and partly from the records. The relevant one is summarized above. He does not believe his vision is different. According to nurses, he is confused, but he is not sure about that. He can hear and about the same. He denies any cardiac or respiratory symptoms. He had multiple GI problems in the past. Denies any back pain. He does not have much constitutional, dermatological symptom. He appeared to be anemic. He does not answer anything about his psychiatry, allergic symptoms. PAST MEDICAL HISTORY: Negative for seizures according to him. FAMILY HISTORY: Negative for early age stroke. SOCIAL HISTORY: He says he does not drink alcohol. PHYSICAL EXAMINATION: Pretty limited because of his condition, but he is alert. He will not tell me what month it is. His speech is there. His concentration and fund of knowledge and memory is diminished. Cranial nerve examination 2-12 was attempted. His cooperation was very poor, but I do not see any focality. He moves his upper extremities, but I did not see any movement in the left lower extremity. I cannot tell about the sensation or reflexes because he will not relax, but his tone does look increased. He cannot do cerebellar sign. He did not cooperate with the fundus examination. He is a well-nourished individual who does not have any dysmorphic features of eyes, ears and face. I think his vision and hearing looks adequate. His cardiac examination mostly looks noncontributory. No respiratory difficulty or rhonchi on either side was [facility] [address] [place] [address] CONSULTATION Name: SWAPNA LUA Room #: 360-P [facility] IN M.R.#: [id number] Admission: 09/07/17 Attend Phys: Riki Sue MD Discharge: Date of : 59 Report #: [id number] noticed. Blood pressure now is 105/67. It has been lower than that. His temperature is 99.6, respiration is 18. LABORATORY DATA: His hemoglobin is only 8. His creatinine is increased since his admission from the last night. He did not have any imaging study of the brain. IMPRESSION: This patient's symptoms were more likely related to the patient's problem with systemic conditions. He was hypotensive. He has decreased perfusion and that will aggravate his anemia. So, I suspect that hypoperfusion caused shakiness. We will look for neurological causes for it; especially he has a history of paroxysmal atrial fibrillation as I understand. We might consider Cardiology consult in that regard. RECOMMENDATION: 1. I discussed the situation with him. We will go ahead and do an EEG in this patient, which is being done. 2. We will try to do a CT scan in this patient. 3. We will see what this workup shows and see if there is any need to do any further neurological workup. Thank you very much for this referral and if you have any question, please feel free to contact me. <ELECTRONICALLY SIGNED> By: Low Ricci MD 09/11/17 0956 [id number] [id number] Low Ricci MD /nt
--- NOTE | ~2017-09-07 | HC ---
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 HISTORY OF PRESENT ILLNESS: The patient is a wound care patient well known to the wound care team. He suffers from quadriplegia status post right leg amputation. The patient previously had huge stage 4 pressure ulcers of the right and left ischium and sacral area with osteomyelitis. Wounds have since become much more shallow and mainly healed. The patient was admitted for pericarditis and hypotension. He had recently been discharged on 08/03/2017 for pericarditis. PAST MEDICAL HISTORY: Quadriplegia, abdominal pain, renal failure, elevated serum creatinine, hospital-acquired pneumonia, hyperkalemia, urinary tract infections. ALLERGIES: No known drug allergies. MEDICATIONS: Include metoclopramide, Lipitor, Remeron, probiotic, vitamin C, iron, Lexapro, MiraLax, oxybutynin, senna, OxyContin. PAST MEDICAL HISTORY: 1. History of VRE. 2. History of Clostridium difficile. 3. History of chronic pelvic osteomyelitis. 4. History of deep vein thrombosis. 5. Type 2 diabetes mellitus. PAST SURGICAL HISTORY: Right above knee amputation, colostomy, ileal conduit, PEG tube. PHYSICAL EXAMINATION: GENERAL: Shows a chronically ill-appearing, quadriplegic gentleman status post right above knee amputation. The patient is alert and conversant. HEENT: Mucous membranes are moist. ABDOMEN: Soft with presence of a PEG tube ileal conduit on the right and colostomy on the left. Abdomen soft, nontender, nondistended. [facility] [address] [place] [address] CONSULTATION Name: SWAPNA LUA Room #: 360-P [facility] IN M.R.#: [id number] Admission: 09/07/17 Attend Phys: Riki Sue MD Discharge: Date of : 59 Report #: [id number] EXTREMITIES: Examination of the patient's back shows chronic pressure ulcers involving the sacral area, right and left ischium. Sacral wound measures approximately 4 x 5 cm, but is superficial and mainly healed. Right ischial ulcer measured approximately 3 x 4 cm superficial and mainly healed. Left ischial ulcer is more elongated and larger, approximately 8 x 3 cm, but again, superficial and mainly healed, much smaller than in the past. Examination of lower extremities shows a well-healed right above-knee amputation and heel ulcer in the left heel with dry eschar, which was removed and the wound is completely healed. IMPRESSION: 1. Pericarditis. 2. Quadriplegia. 3. Chronic stage 4 pressure ulcers of the sacrum and ischium, history of pelvic osteomyelitis. Pressure ulcers of the sacrum and ischial areas are superficial and almost healed, much improved from the past. Heel ulcer is healed. PLAN: Offload with low air loss mattress, maximize nutrition through PEG tube, Aquacel Ag dressings daily and ABD pads to sacral and bilateral ischial ulcers. Foam boot for the left foot. <ELECTRONICALLY SIGNED> By: Kenny Meléndez MD 09/12/17 1310 0938 1832 Kenny Meléndez MD /nt
[~2017-09-07 15:00] MED LIST changes: +ARGINAID POWDE1 EACH PO; +ASPIR 8181 MG PO; +ENSURE113 GM PO; +FOLIC ACID1 MG PO; +JUVEN PACKET1 EAC1 PO; +KIONEX15 GM/60 M PO; +LEVAQUIN 500 M500 M2 PO; +MIRALAX17 G1 PO; +OXYBUTYNIN 5 MG5 M2 PO; +REMERON15 M2 PO; +SANTYL OINTMENT30 G1 TOP; +SENNA8.6 MG PO; +SODIUM BICARBO650 M3 PO; -VITAMINC500 PER TUBE
[2017-09-07 15:02] VITALS: BP 78/45
[2017-09-07 16:42] LABS: ABSOLUTE NEUTROPHILS 3.3 thou/uL (1.4-8.2); EOSINOPHILS 5.6 % (0.0-3.0); HEMATOCRIT 25.2 % (42.0-52.0); LYMPHOCYTES 17.1 % (24.0-44.0); MCH 26.2 pg (26.0-34.0); MCHC 31.8 g/dL (28.0-37.0); MCV 82.4 fL (80.0-100.0); MONOCYTES 10.6 % (1.0-8.0); PLATELET COUNT 348 thou/uL (150-400); POLYS 65.7 % (36.0-66.0); RBC 3.05 mil/uL (4.50-6.00)
[2017-09-07 16:50] LABS: CALCIUM 7.5 mg/dL (8.5-10.1); CREATININE 1.9 mg/dL (0.7-1.3); POTASSIUM 4.3 mmol/L (3.5-5.1)
[2017-09-07 16:57] LABS: ALBUMIN 1.8 g/dL (3.4-5.0); TOTAL BILIRUBIN 0.2 mg/dL (<0.1-1.0); TOTAL PROTEIN 7.5 g/dL (6.4-8.2)
[2017-09-07 17:43] VITALS: BP 101/69
[2017-09-07 20:00] VITALS: BP 124/77
[2017-09-08 00:36] VITALS: BP 107/77
[2017-09-08 05:39] VITALS: BP 114/80
[2017-09-08 07:12] LABS: HEMATOCRIT 24.4 % (42.0-52.0); MCH 26.8 pg (26.0-34.0); MCHC 32.5 g/dL (28.0-37.0); MCV 82.2 fL (80.0-100.0); RBC 2.97 mil/uL (4.50-6.00); RDW 18.2 % (10.5-14.5); WBC 4.1 thou/uL (4.0-11.0)
[2017-09-08 07:19] LABS: CALCIUM 7.6 mg/dL (8.5-10.1); CREATININE 1.8 mg/dL (0.7-1.3); POTASSIUM 4.1 mmol/L (3.5-5.1)
[2017-09-08 07:50] VITALS: BP 113/82
[2017-09-08 11:20] VITALS: BP 105/67
[2017-09-08 15:21] LABS: URINE BILIRUBIN NEGATIVE (Negative); URINE BLOOD 3+ (Negative); URINE CLARITY CLEAR; URINE COLOR YELLOW; URINE GLUCOSE-RANDOM* NEGATIVE (Negative); URINE KETONES NEGATIVE (Negative); URINE LEUKOCYTES 2+ (Negative); URINE NITRITE NEGATIVE (Negative); URINE PROTEIN (DIPSTICK) 3+ (Negative); URINE SPECIFIC GRAVITY 1.015 (1.005-1.035); URINE UROBILINOGEN 0.2 E.U./dl (0.2-1.0)
[2017-09-08 15:36] LABS: AMORPHOUS PHOSPHATES Moderate /LPF (None Seen); BACTERIA >30 Many /HPF (None Seen); CASTS None Seen /LPF (None Seen); MUCUS >6 Heavy strn/LPF (None Seen); SQUAMOUS 0-3 Few /LPF (0-3); URINE RBC >20 Many /HPF (0-2)
[2017-09-08 16:00] VITALS: BP 112/68
[2017-09-08 19:05] VITALS: BP 121/76
[2017-09-09 02:38] VITALS: BP 149/82
[2017-09-09 05:39] LABS: ABSOLUTE NEUTROPHILS 2.8 thou/uL (1.4-8.2); BASOPHILS 1.3 % (0.0-2.0); EOSINOPHILS 9.1 % (0.0-3.0); HEMATOCRIT 25.2 % (42.0-52.0); LYMPHOCYTES 20.2 % (24.0-44.0); MCH 26.5 pg (26.0-34.0); MCHC 31.6 g/dL (28.0-37.0); MCV 83.9 fL (80.0-100.0); MONOCYTES 8.2 % (1.0-8.0); PLATELET COUNT 333 thou/uL (150-400); POLYS 61.2 % (36.0-66.0); RBC 3.01 mil/uL (4.50-6.00); RDW 17.7 % (10.5-14.5); WBC 4.6 thou/uL (4.0-11.0)
[2017-09-09 06:00] LABS: CREATININE 1.7 mg/dL (0.7-1.3); POTASSIUM 3.9 mmol/L (3.5-5.1)
[2017-09-09 06:32] LABS: TSH 0.968 uIU/mL (0.358-3.740)
[2017-09-09 07:07] LABS: FOLIC ACID > 40.0 ng/mL (8.6-58.9)
[2017-09-09 12:50] VITALS: BP 147/88
[2017-09-09 19:07] VITALS: BP 137/81
[2017-09-10 03:49] VITALS: BP 147/90
[2017-09-10 04:02] LABS: ABSOLUTE NEUTROPHILS 3.4 thou/uL (1.4-8.2); BASOPHILS 1.3 % (0.0-2.0); EOSINOPHILS 7.3 % (0.0-3.0); HEMOGLOBIN 7.7 gm/dL (14.0-18.0); LYMPHOCYTES 13.8 % (24.0-44.0); MCH 26.9 pg (26.0-34.0); MCHC 32.1 g/dL (28.0-37.0); MCV 83.7 fL (80.0-100.0); MONOCYTES 7.1 % (1.0-8.0); PLATELET COUNT 331 thou/uL (150-400); POLYS 70.5 % (36.0-66.0); RBC 2.87 mil/uL (4.50-6.00); RDW 17.8 % (10.5-14.5); WBC 4.8 thou/uL (4.0-11.0)
[2017-09-10 04:21] LABS: ALBUMIN 1.8 g/dL (3.4-5.0); CALCIUM 6.9 mg/dL (8.5-10.1); CREATININE 1.4 mg/dL (0.7-1.3); POTASSIUM 3.6 mmol/L (3.5-5.1); TOTAL BILIRUBIN 0.2 mg/dL (<0.1-1.0); TOTAL PROTEIN 7.3 g/dL (6.4-8.2)
[2017-09-10 07:16] VITALS: BP 156/84
[2017-09-10 10:52] LABS: URINE BILIRUBIN NEGATIVE (Negative); URINE BLOOD 3+ (Negative); URINE CLARITY CLEAR; URINE COLOR YELLOW; URINE GLUCOSE-RANDOM* NEGATIVE (Negative); URINE KETONES NEGATIVE (Negative); URINE LEUKOCYTES-REFLEX NEGATIVE (Negative); URINE NITRITE-REFLEX NEGATIVE (Negative); URINE PROTEIN (DIPSTICK) 2+ (Negative); URINE UROBILINOGEN 0.2 E.U./dl (0.2-1.0)
[2017-09-10 11:03] LABS: BACTERIA-REFLEX 1-9 Few /HPF (None Seen); CASTS None Seen /LPF (None Seen); CRYSTALS None Seen /LPF (None Seen); SQUAMOUS None Seen /LPF (0-3); URINE WBC-REFLEX None Seen /HPF (0-5)
[2017-09-10 11:04] LABS: URINE CREATININE-RANDOM* < 13.0 mg/dL; URINE SODIUM-RANDOM* 114 mmol/L
[2017-09-10 11:29] VITALS: BP 146/86
[2017-09-10 15:48] VITALS: BP 147/71
[2017-09-10 19:44] VITALS: BP 132/87
[2017-09-11 04:00] VITALS: BP 140/88
[2017-09-11 07:50] VITALS: BP 154/83
[2017-09-11 12:18] VITALS: BP 154/93
[2017-09-11 15:17] VITALS: BP 139/92
[2017-09-11 19:55] VITALS: BP 144/77
[2017-09-12 04:32] VITALS: BP 137/78
[2017-09-12 08:06] VITALS: BP 147/86
[2017-09-12 11:56] VITALS: BP 153/84
[2017-09-12 16:20] VITALS: BP 143/94
[2017-09-12 19:28] VITALS: BP 134/72
[2017-09-13 08:02] VITALS: BP 132/83
[2017-09-13 11:51] VITALS: BP 121/75
[2017-09-13 16:37] VITALS: BP 148/86
[2017-09-13 20:24] VITALS: BP 135/83
[2017-09-14 07:55] VITALS: BP 131/80
[2017-09-14 12:23] VITALS: BP 130/76
[2017-09-14] MEDS ORDERED: CIPRO500 MG PO (16:11)
== END 2017-09-14 17:34 | DRG 871 ==
LOC: ER 15:00 → 3W 17:07 → EROBS 17:07 → 3W 18:00
PROVIDERS: Emergency Medicine; Hospitalist
DX: A41.9 Sepsis, unspecified organism (principal); L89.154 Pressure ulcer of sacral region, stage 4; L89.324 Pressure ulcer of left buttock, stage 4; G82.50 Quadriplegia, unspecified; N17.9 Acute kidney failure, unspecified; I31.9 Disease of pericardium, unspecified; E46 Unspecified protein-calorie malnutrition; Z68.1 Body mass index [BMI] 19.9 or less, adult; N18.9 Chronic kidney disease, unspecified; E11.22 Type 2 diabetes mellitus with diabetic chronic kidney disease; E03.9 Hypothyroidism, unspecified; K59.00 Constipation, unspecified; E78.5 Hyperlipidemia, unspecified; D64.9 Anemia, unspecified; I95.9 Hypotension, unspecified; I48.0 Paroxysmal atrial fibrillation; I12.9 Hypertensive chronic kidney disease with stage 1 through stage 4 chronic kidney disease, or unspecified chronic kidney disease; R44.1 Visual hallucinations; R41.0 Disorientation, unspecified; F41.9 Anxiety disorder, unspecified; G40.909 Epilepsy, unspecified, not intractable, without status epilepticus; F03.90 Unspecified dementia, unspecified severity, without behavioral disturbance, psychotic disturbance, mood disturbance, and anxiety; R25.1 Tremor, unspecified; E86.0 Dehydration; F32.9 Major depressive disorder, single episode, unspecified; Z79.899 Other long term (current) drug therapy; Z89.611 Acquired absence of right leg above knee; Z86.718 Personal history of other venous thrombosis and embolism; Z93.3 Colostomy status; Z87.440 Personal history of urinary (tract) infections; Z93.1 Gastrostomy status; Z79.82 Long term (current) use of aspirin
CPT/HCPCS: 10879

== ENCOUNTER 2017-11-12 22:58 | Emergency (ER) | payer OTHER ==
[~2017-11-12] VITALS: Ht 165.1 cm; Wt 48.5 kg
[~2017-11-12 22:58] MED LIST changes: +CIPRO500 MG PO
== END 2017-11-13 02:53 | disposition home or self-care (01) ==
LOC: ER 22:58
DX: S42.295A Other nondisplaced fracture of upper end of left humerus, initial encounter for closed fracture (principal); M86.68 Other chronic osteomyelitis, other site; E11.22 Type 2 diabetes mellitus with diabetic chronic kidney disease; N18.9 Chronic kidney disease, unspecified; K21.9 Gastro-esophageal reflux disease without esophagitis; I12.9 Hypertensive chronic kidney disease with stage 1 through stage 4 chronic kidney disease, or unspecified chronic kidney disease; E78.5 Hyperlipidemia, unspecified; E03.9 Hypothyroidism, unspecified; Z86.718 Personal history of other venous thrombosis and embolism; Z87.440 Personal history of urinary (tract) infections; Z86.2 Personal history of diseases of the blood and blood-forming organs and certain disorders involving the immune mechanism; X58.XXXA Exposure to other specified factors, initial encounter; Y93.89 Activity, other specified; Y92.89 Other specified places as the place of occurrence of the external cause; Y99.8 Other external cause status

== ENCOUNTER 2017-12-12 09:42 | Emergency (ER) | payer OTHER ==
[~2017-12-12] VITALS: Ht 165.1 cm; Wt 60.8 kg
[~2017-12-12 09:42] MED LIST changes: +ARANESP 6060 MCG/0.3 SUBQ; +FOLIC ACID1 MG PER TUBE; -FOLIC ACID1 MG PO; +LEVAQUIN 750 M750 MG PER TUBE; +LEXAPRO 10 MG T10 M2 PER TUBE; +OXYBUTYNIN 5 MG5 M2 PER TUBE; -OXYBUTYNIN 5 MG5 M2 PO; +ROBITUSSIN100 MG/53 PER TUBE; +SODIUM BICARBO650 M3 PER TUBE; -SODIUM BICARBO650 M3 PO; +VITAMINC500 PER TUBE
== END 2017-12-12 12:17 ==
LOC: ER 09:42
DX: Z46.59 Encounter for fitting and adjustment of other gastrointestinal appliance and device (principal); M86.159 Other acute osteomyelitis, unspecified femur; I12.9 Hypertensive chronic kidney disease with stage 1 through stage 4 chronic kidney disease, or unspecified chronic kidney disease; N18.9 Chronic kidney disease, unspecified; E11.22 Type 2 diabetes mellitus with diabetic chronic kidney disease; E03.9 Hypothyroidism, unspecified; K21.9 Gastro-esophageal reflux disease without esophagitis; E78.5 Hyperlipidemia, unspecified; Z86.2 Personal history of diseases of the blood and blood-forming organs and certain disorders involving the immune mechanism; Z86.718 Personal history of other venous thrombosis and embolism

== ENCOUNTER 2018-01-08 09:21 | Inpatient (IN) | payer OTHER ==
[2018-01-08] VITALS (25 sets, daily range): BP systolic 56–263; BP diastolic 15–214
[~2018-01-08] VITALS: Ht 165.1 cm; Wt 63.1 kg
--- NOTE | ~2018-01-08 | HC ---
[facility] [place] [address] CONSULTATION Name: SWAPNA LUA Room #: 243-P ADM IN M.R.#: [id number] Admission: 01/08/18 Attend Phys: Riki Sue MD Discharge: Date of : 59 Report #: [id number] THIS REPORT FOR: //name// CC: Beau Sue DATE OF SERVICE: 01/14/2018 REQUESTING PHYSICIAN: Dr. Clemons. REASON FOR CONSULTATION: Palliative care. HISTORY OF PRESENT ILLNESS: The patient is a 62-year-old male who initially presented to [facility] on 01/08/2018. At such time, the patient was found to have hypoxic respiratory failure. He was found to have a right-sided pneumothorax, also was found to be in septic shock and had acute renal failure. The patient has a history of chronic pelvic osteomyelitis. He has had a right AKA with disarticulation. He also has a stage 4 sacral wound as well as a stage 3 left heel wound. He has had multiple admissions for hypertension and wound care. The patient has history of also pericarditis as well. The patient was previously in a group home [facility] at which time he was found to be on hospice enrollment. When he established altered mental status, his sister changed him from hospice status and admitted him to the hospital. Also, had him changed from DNR to full code. The patient has been significantly difficult to respond at this time, does appear to track at times, but otherwise difficult to get response. He is, however, sedated at this time. He is requiring Levophed at this current point, although he has been off and on of this. He is also ventilated with 100% FiO2 at this time. The patient appears to have had acute osteomyelitis development as well into this pelvis area and there is some concern that he may have to have further procedure to alleviate this. PAST MEDICAL HISTORY: Significant for recurrent wounds secondary to quadriplegia. He has had a stage IV sacral as well as multiple wounds to right and left lower extremity, hypertension and recent history of hypotension, paroxysmal atrial fibrillation, type 2 diabetes, chronic kidney disease, chronic anemia, history of PEG tube placement. PAST SURGICAL HISTORY: The patient has had a PEG tube, right AKA with disarticulation, diverting colostomy, urostomy. FAMILY HISTORY: Noncontributory. SOCIAL HISTORY: Sister is durable power of immigration [place] [address] CONSULTATION Name: SWAPNA LUA Room #: 243-P [facility] IN M.R.#: [id number] Admission: 01/08/18 Attend Phys: Riki Sue MD Discharge: Date of : 59 Report #: [id number] previously making his own decisions. MEDICATIONS: Previously on aspirin, colchicine, Colace, Reglan, Lipitor, Remeron, iron, Lexapro, oxybutynin, Valium, Aranesp. REVIEW OF SYSTEMS: Unable to obtain at this time due to present medical condition. PHYSICAL EXAMINATION: VITAL SIGNS: Temperature 36.2, respirations 17, blood pressure 72/49 prior to Levophed instillation, 100% on 100% FiO2, 114 pulse. GENERAL: He is not alert. He will open his eyes to verbal cues, although it is not apparent whether this is to command. He does appear to track hand motion. It is not apparent whether this is on command. He will not make particular motions to command at this current point in time including a finger grasp and/or eye motion. HEENT: No scleral icterus, no conjunctival injection. CARDIOVASCULAR: Irregular rate and rhythm. RESPIRATORY: Mechanical lung sounds. ABDOMEN: He does have diminished bowel sounds. EXTREMITIES: Does have edema of left lower extremity, edema of scrotum and right stump area. LABORATORY DATA: Creatinine 1.9 from 2.8, mag 1.6, white blood cell 7.5, hemoglobin 8.8. ASSESSMENT AND PLAN: 1. Acute hypoxic respiratory failure, currently with ventilation, have had a discussion with sister today, it was approximately 25 minutes in length of advanced care planning. Sister was willing to discuss certain issues. I did discuss his current medical state including the concern for recurrent osteomyelitis including his overall prognosis. Sister at this time, per her report, is trying to gather this information and will pry on this information in order to determine what to do next. I have discussed options and discussed that I can be contacted with my current phone number. I have discussed code status slightly as well, although she did not appear amenable for decision making at this time. 2. Recurrent pelvic osteomyelitis. At this time, it is likely that this will cause him to have recurrent septic shock or recurrent sepsis. Unfortunately, it does not appear that the patient would be a good candidate for further surgical procedures; although, I will defer to Orthopedic Surgery at this time. 3. Septic shock. Again, likely secondary to osteomyelitis versus other origins as well. Did discuss recurrence of this and that this unfortunately could ultimately cause the patient's . The patient continues to have hypotension, requires pressors at this time. Discussed this with sister today. 4. Quadriplegia. [facility] [address] [place] [address] CONSULTATION Name: SWAPNA LUA Room #: 243-P ADM IN M.R.#: [id number] Admission: 01/08/18 Attend Phys: Riki Sue MD Discharge: Date of : 59 Report #: [id number] PLAN: Overall, affecting again these above conditions. Did discuss slightly quality of life, although again sister was not amenable to extensive discussion today. We will address again on Thursday, I am not in town for the next 4 days. However, I can be reached via number that I have provided to sister. Please feel free to contact me as well if you have any questions regarding this consultation. Thank you very much for this consult. By: [phone] Supa Garcia DO /nt
--- NOTE | ~2018-01-08 | 2DMMODE ---
[facility] [address] [place] [address] 2 D/M-MODE ECHOCARDIOGRAM Name: SWAPNA LUA Room #: 243-P ADM IN M.R.#: [id number] Admission: 01/08/18 Attend Phys: Riki Sue MD Discharge: Date of : 59 Date of Service: 01/10/18 0851 Report #: [id number] THIS REPORT FOR: //name// APPROVED REPORT Study performed: 01/09/2018 10:03:03 EXAM: Comprehensive 2D, Doppler, and color-flow Echocardiogram Patient Location: Bedside Room #: 243 Status: on-call BSA: 1.60 HR: 85 bpm BP: 143/42 mmHg Rhythm: NSR Other Information Study Quality: Adequate Risk Factors: Cardiac Risk Factors: HTN, DM Indications Septic Shock Unresponsive Respiratory Failure 2D Dimensions LVOT Diam: 21.00 (18-24mm) LVDd: 43.79 mm PWd: 8.77 (7-11mm) Ascending Ao: 25.81 (22-36mm) LVDs: 37.19 (25-40mm) Aortic Root: 28.57 mm LV Single Plane 4CH: 39.00 % LV Single Plane 2CH: 43.19 % Negrete's LVEF: 41.10 % Biplane EF: 39.2 % Volumes Left Atrial Volume (Systole) Single Plane 4CH: 15.45 mL Single Plane 2CH: 20.91 mL LA ESV Index: 12.00 mL/m2 Aortic Valve AoV Peak Sergio.: 0.96 m/s AO Peak Gr.: 3.67 mmHg LVOT Max P.77 mmHg [facility] [address] [place] [address] 2 D/M-MODE ECHOCARDIOGRAM Name: SWAPNA LUA Room #: 243-P [facility] IN [facility].#: [id number] Admission: 01/08/18 Attend Phys: Riki Sue MD Discharge: Date of : 59 Date of Service: 01/10/18 0851 Report #: [id number] LVOT Max V: 0.83 m/s BUD Vmax: 3.03 cm2 Mitral Valve E/A Ratio: 0.8 MV Decel. Time: 143.02 ms MV E Max Sergio.: 0.52 m/s MV A Sergio.: 0.69 m/s MV PHT: 41.48 ms IVRT: 51.90 ms Pulmonary Valve PV Peak Sergio.: 0.79 m/s PV Peak Gr.: 2.52 mmHg Tricuspid Valve TR Peak Sergio.: 2.61 m/s TR Peak Gr.: 27.29 mmHg Left Ventricle The left ventricle is normal size. There is normal LV segmental wall motion. There is normal left ventricular wall thickness. Left ventricular systolic function is mildly global decreased. LVEF is 45-50% Grade I - abnormal relaxation pattern. Right Ventricle The right ventricle is normal size. The right ventricular systolic function is normal. Atria The left atrium size is normal. The right atrium size is normal. Aortic Valve The aortic valve is normal in structure. No aortic regurgitation is present. There is no aortic valvular stenosis. Mitral Valve The mitral valve is normal in structure. There is no mitral valve regurgitation noted. No evidence of mitral valve stenosis. Tricuspid Valve The tricuspid valve is normal in structure. Trace to mild tricuspid regurgitation. Tricuspid jet measures 27 mmHg. Unable to assess PA pressure. Pulmonic Valve [facility] [address] [place] [address] 2 D/M-MODE ECHOCARDIOGRAM Name: SWAPNA LUA Room #: 243-P ADM IN M.R.#: [id number] Admission: 01/08/18 Attend Phys: Riki Sue MD Discharge: Date of : 59 Date of Service: 01/10/18 0851 Report #: [id number] The pulmonary valve is normal in structure. There is no pulmonic valvular regurgitation. Great Vessels The aortic root is normal in size. Patient is on a ventilator. Unable to accurately assess the IVC. Pericardium There is no pericardial effusion. <Conclusion> The left ventricle is normal size. Left ventricular systolic function is mildly global decreased. LVEF is 45-50% Grade I - abnormal relaxation pattern. The right ventricle is normal size. The left atrium size is normal. The aortic valve is normal in structure. There is no mitral valve regurgitation noted. Trace to mild tricuspid regurgitation. Tricuspid jet measures 27 mmHg. Unable to assess PA pressure. The aortic root is normal in size. There is no pericardial effusion. <ELECTRONICALLY SIGNED> By: Lexa Jj MD, FACC 01/10/1851 0 0 Lexa Jj MD, FACC /INF
--- NOTE | ~2018-01-08 | EKG ---
[address] [place] [address] ELECTROCARDIOGRAM REPORT Name: SWAPNA LUA Room #: 243- ADM IN M.R.#: [id number] Admission: 01/08/18 Attend Phys: Riki Sue MD Discharge: Date of : 59 Report #: [id number] THIS REPORT FOR: //name// [facility] Test Date: 2018-01-15 Test Time: 18:16:12 Pat Name: SWAPNA LUA Department: Room: 243 Gender: M Student Support Services Director: Humaira VENTURA : 1955 Requested By: Corbin Clemons Order Number: [id number] MD: Alexander Yu Measurements Intervals [place] Rate: 135 P: MS: QRS: 248 QRSD: 98 T: -7 QT: 301 QTc: 452 Interpretive Statements Probable SVT Low voltage, extremity and precordial leads Minimal ST depression, diffuse leads Compared to ECG 01/08/2018 11:04:09 SVT now present Low QRS voltage now present ST (T wave) deviation now present Electronically Signed On 01-16-2018 9:58:06 CDT by Alexander Yu [email or web address] <ELECTRONICALLY SIGNED> By: Alexander Yu MD 01/16/18 0958 181 15 Alexander Yu MD /EPI
--- NOTE | ~2018-01-08 | HC ---
[facility] [place] [address] CONSULTATION Name: SWAPNA LUA Room #: 243-P ADM IN M.R.#: [id number] Admission: 01/08/18 Attend Phys: Riki Sue MD Discharge: Date of : 59 Report #: [id number] THIS REPORT FOR: //name// CC: Beau Sue DATE OF SERVICE: 01/09/2018 ATTENDING PHYSICIAN: Dr. Sue. REASON FOR CONSULTATION: Antibiotic management. HISTORY OF PRESENT ILLNESS: The patient is a 62-year-old black man, resident of local long-term, admitted through the Emergency Room with increasing shortness of breath. The patient has significant hypoxemia, requires orotracheal intubation and mechanical ventilation. The patient had a right pneumothorax, requiring a right-sided chest tube. The patient is on treatment with Levaquin, Zosyn and vancomycin. At present, the patient in the ICU, on ventilator. Discussed the patient's situation with the patient's nurse. PAST MEDICAL HISTORY: 1. Chronic sacral decubitus stage 2-3. 2. Chronic pelvic osteomyelitis. 3. Right hip disarticulation. 4. Chronic kidney disease. 5. Diverting colostomy. 6. Feeding gastrostomy. 7. Urostomy, neurogenic bladder. 8. Diabetes mellitus. 9. Anemia of chronic disease. 10. Chronic constipation. SOCIAL HISTORY: Unable to obtain. FAMILY HISTORY: Unable to obtain. REVIEW OF SYSTEMS: Unable to obtain. DRUG ALLERGIES: None listed. MEDICATIONS: The patient is on Levaquin 750 mg IV every 48 hours, vancomycin 500 mg IV daily, Zosyn 3.375 grams IV every 12 hours, fentanyl 25-50 mcg every 1 or 2 hours if needed. Pressors including vasopressin, norepinephrine; sedation with midazolam as needed. Intravenous fluids, p.r.n. ondansetron, has received [facility] [address] [place] [address] CONSULTATION Name: SWAPNA LUA Room #: 243-P [facility] IN [facility].#: [id number] Admission: 01/08/18 Attend Phys: Riki Sue MD Discharge: Date of : 59 Report #: [id number] some sodium bicarbonate. PHYSICAL EXAMINATION: GENERAL: Chronically ill-appearing black man, not arousable. VITAL SIGNS: Temperature maximum since admission 98.7. He was hypothermic, 94 on admission, requiring some rewarming. Currently, pulse 129, respirations 36, BP 98/66, intake and output are not recorded. Saturations 88 on FiO2 at 100%. HEENMT: Head normocephalic, atraumatic. Pupils equal, arcus cornealis. Mouth unable to examine, orotracheal intubation. NECK: Stiff. The patient is stiff all over. LUNGS: Decreased breath sounds and air leak right chest with right-sided chest tube. HEART: S1, S2. No gallop or murmur. ABDOMEN: Revealed gastrostomy, diverting colostomy and ileal conduit. Not apparently tender. BACK AND EXTREMITIES: Stage 2-3 sacral decubitus, possible underlying osteomyelitis, status post right AKA. Hip disarticulation. Left heel decubitus, dressings intact. LABORATORY DATA: Sodium 142, potassium 4.1, BUN 91, creatinine 2.5, calcium 6.7, glucose 127, calcium 6.7, alkaline phosphatase 434, SGPT 99, total protein 10 g/dL, albumin 10.8 g/dL. Lactic acid elevated up to 6.7, down to 5.9 this morning. WBC 14,500 on admission, repeated later on at 6700; hemoglobin 11.7 g/dL; platelets 499,000. White blood cell count differential revealed 5% segmented neutrophils. MRSA by PCR pending, it was positive in 01/2017. ABGs: pH 7.27, pCO2 41, pO2 80.1, bicarbonate 18.8, lactate 7.21 on FiO2 of 100%. MICROBIOLOGY DATA: Blood cultures were obtained on admission, they remained negative so far. Note is made that the patient had previously, in 05/2017, Citrobacter in the urine. RADIOLOGY EVALUATION: Chest x-ray on admission revealed right-sided pneumothorax with subsequently placement of a right chest tube. A repeat chest x-ray revealed partial resolution of the pneumothorax; subcutaneous emphysema; right and left basilar atelectasis, infiltrate; and some gastric distention. ASSESSMENT: 1. Severe sepsis. 2. Right pneumothorax. 3. Combined metabolic lactic acidosis. 4. Respiratory failure, on mechanical ventilator. 5. Acute kidney [id number] kidney disease. 6. Quadriplegia. 7. Electrolyte imbalance. 8. Diverting colostomy, ileal conduit and percutaneous gastrostomy. [address] [address] CONSULTATION Name: SWAPNA LUA Room #: 243-P ADM IN M.R.#: [id number] Admission: 01/08/18 Attend Phys: Riki Sue MD Discharge: Date of : 59 Report #: [id number] SUGGESTIONS: Recommend continued coverage with Levaquin, vancomycin and Zosyn for healthcare-associated pneumonia. Prognosis is poor. Survival doubtful. Dr. Sue, thank you for requesting my suggestions. <ELECTRONICALLY SIGNED> By: Maurice Watson MD 01/10/18 0618 0555 0631 Maurice Watson MD /nt
--- NOTE | ~2018-01-08 | HC ---
[facility] [place] [address] CONSULTATION Name: SWAPNA LUA Room #: 243-P ADM IN M.R.#: [id number] Admission: 01/08/18 Attend Phys: Riki Sue MD Discharge: Date of : 59 Report #: [id number] THIS REPORT FOR: //name// CC: Beau Sue DATE OF SERVICE: 01/12/2018 HISTORY OF PRESENT ILLNESS: The patient is a 62-year-old male patient with whom I am familiar from multiple admissions to the hospital. 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 He is quadriplegic with chronic respiratory failure. He was admitted to the hospital with shortness of breath and acute mental status changes. He was intubated as family apparently wanted everything done. He is unable to provide any information about himself at this time. He did develop a pneumothorax and has a subsequent tube thoracostomy placed. PAST MEDICAL HISTORY: Positive for quadriplegia, right knee amputation, stage 4 pressure ulcer of sacral gluteal region, chronic respiratory failure, and chronic abdominal pain. The patient has a history of urostomy related to a neurogenic bladder as well as diverting colostomy. MEDICATIONS: Include Mag-Ox, metoclopramide, Lipitor, Lioresal, Remeron, Unicomplex-M, probiotic, vitamin C, Benadryl, Ensure, iron, Lexapro, MiraLax, oxybutynin, Robitussin, Santyl ointment, senna, sodium bicarbonate, OxyContin, Valium, Aranesp. SOCIAL HISTORY: Negative for alcohol or tobacco use. FAMILY HISTORY: Noncontributory. REVIEW OF SYSTEMS: Not obtainable due to the patient's nonresponsive state. PHYSICAL EXAMINATION: VITAL SIGNS: At this time include respiratory rate of 33, pulse 81, blood pressure 141/58. GENERAL: This is a chronically ill-appearing male patient, who appears to be sedated. HEENT: Head normocephalic. Nose is clear. Throat demonstrates endotracheal tube in place. NECK: Without jugular venous distention. HEART: Tachycardic without obvious murmur. LUNGS: Sounds are diminished. Chest wall is stable. He has a tube thoracostomy on the right side. ABDOMEN: Soft. Urostomy and colostomy are noted and seemed to be functioning. SKIN: Pelvic region demonstrates multiple pressure ulcerations over a distorted [facility] [address] [place] [address] CONSULTATION Name: SWAPNA LUA Room #: 243-P [facility] IN [facility]#: [id number] Admission: 01/08/18 Attend Phys: Riki Sue MD Discharge: Date of : 59 Report #: [id number] anatomy that appears to be in various stages of healing. There is reasonably good granulation tissue. There is no overt evidence of infection. He has a stage 3 pressure ulcer to his left heel, which is a mix of granulation and fibrin. CLINICAL IMPRESSION: 1. Stage 4 pressure ulcer of the sacral gluteal region. 2. Stage 3 pressure ulcer of the left heel. 3. Respiratory failure, requiring mechanical ventilation. 4. Right pneumothorax, status post tube thoracostomy. 5. Chronic respiratory failure. 6. Quadriplegia. 7. Moderate protein-calorie malnutrition. RECOMMENDATIONS: At this point in time, we will recommend Xeroform gauze and ABD dressings to be changed on the sacral gluteal region on a Thursday, Thursday, Thursday or as needed basis. We will recommend similar dressing to his left heel. Prevalon boot for pressure prophylaxis, low air loss mattress, q. 2 hour turning and positioning, aggressive nutritional support. I appreciate being asked to see him in consultation. <ELECTRONICALLY SIGNED> By: Priyank Monroe MD 01/14/18 0927 1825 0656 Priyank Monroe MD /nt
--- NOTE | ~2018-01-08 | HC ---
[facility] [place] [address] CONSULTATION Name: SWAPNA LUA Room #: 243-P ADM IN M.R.#: [id number] Admission: 01/08/18 Attend Phys: Riki Sue MD Discharge: Date of : 59 Report #: [id number] THIS REPORT FOR: //name// CC: Beau Sue DATE OF SERVICE: 01/15/2018 TYPE OF REPORT: Cardiology consultation. INDICATION: Tachycardia. HISTORY OF PRESENT ILLNESS: This is an unfortunate 62-year-old male admitted 7 days ago for respiratory failure and sepsis. The patient has a history of quadriplegia, paroxysmal atrial fibrillation, stage 4 decubitus ulcers, hypertension, osteomyelitis and GERD. He was admitted initially for respiratory failure, requiring intubation. He is on multiple pressors for septic shock. We are asked to evaluate the patient for tachycardia. In reviewing the telemetry strips, he has had brief episodes of SVT, preceded by premature APCs. He has been maintaining this fast heart rate at approximately 135-140 beats per minute. During this time, he has required more pressure support. He is currently on Levophed and vasopressin. Recent echo revealed EF in the 45%-50% range. PAST MEDICAL HISTORY: As above: 1. Quadriplegia with multiple complications including stage 4 decubitus ulcers and pressure ulcers. 2. History of osteomyelitis. 3. Anemia. 4. Right AKA. ALLERGIES: None. MEDICATIONS: Please see the MAR for full listing. SOCIAL HISTORY: Negative for tobacco use. FAMILY HISTORY: No pertinent family history. REVIEW OF SYSTEMS: Unobtainable. PHYSICAL EXAMINATION: VITAL SIGNS: The patient is presently intubated. VITAL SIGNS: Blood pressure is 96/60, heart rate is 140 beats per minute. GENERAL APPEARANCE: The patient is intubated and unresponsive. HEENT: Normocephalic/atraumatic. NECK: Nontender. [facility] [address] [place] [address] CONSULTATION Name: SWAPNA LUA Room #: [address] [place] [address] [place] [facility].#: [id number] Admission: 01/08/18 Attend Phys: Riki Sue MD Discharge: Date of : 59 Report #: [id number] LUNGS: Diminished breath sounds at the bases. CARDIAC: Tachycardic. S1 and S2 positive. ABDOMEN: Ostomy tube. EXTREMITIES: Right AKA and multiple ulcers. Positive edema, left lower extremity. LABORATORY VALUES: A pH of 6.85, CO2 is 77 and O2 is 52.6. White count is 12.3 and hemoglobin 7.9. Sodium is 135 and creatinine is 2.1. ASSESSMENT AND PLAN: 1. Supraventricular tachycardia, has had multiple episodes of supraventricular tachycardia proceeded by an APC. Presently maintaining a fast heart rate with no discernible P waves. Unable to use a beta patrice or calcium channel patrice due to septic shock. We will start amiodarone. Overall, prognosis is poor. 2. Respiratory failure, continue with ventilator support. Blood gas reveals a respiratory acidosis, as per Pulmonary. 3. Sepsis, continue antibiotics and pressor support. <ELECTRONICALLY SIGNED> By: Alexander Yu MD 01/16/18 0812 1846 0032 Alexander Yu MD /nt
--- NOTE | ~2018-01-08 | EKG ---
[address] [place] [address] ELECTROCARDIOGRAM REPORT Name: LUA,DERRICK Room #: 243-P ADM IN M.R.#: [id number] Admission: 01/08/18 Attend Phys: Riki Sue MD Discharge: Date of : 59 Report #: [id number] THIS REPORT FOR: //name// [facility] ED Test Date: 2018-01-08 Test Time: 11:04:09 Pat Name: SWAPNA LUA Department: Room: [facility] Gender: M Raised Printer: ALISON : 1955 Requested By: Mil Clark Order Number: [id number] MD: Michael Gonzales Measurements Intervals [place] Rate: 108 P: 92 NM: 218 QRS: -63 QRSD: 79 T: 266 QT: 328 QTc: 440 Interpretive Statements Marked baseline artifact, recommend repeat tracing Probable sinus tachycardia Compared to ECG 07/30/2017 17:38:38 marked baseline artifact is now present Electronically Signed On 01-11-2018 13:59:40 CDT by Michael Gonzales [email or web address] <ELECTRONICALLY SIGNED> By: Michael Gonzales MD, [facility] 01/11/18 1359 1104 1104 Michael Gonzales MD, [facility] /EPI
[2018-01-08 10:16] LABS: BE(vivo) 4.9 mmol/L (-2 to +3); HCO3 29.8 mmol/L (22.0-26.0); PCO2 45.2 mmHg (35.0-45.0); PO2 40.5 mmHg (80.0-100.0); pH 7.437 (7.360-7.450); sO2 77.2 % (92.0-98.0)
[2018-01-08 10:43] LABS: ABSOLUTE NEUTROPHILS 12.4 thou/uL (1.4-8.2); BASOPHILS 0.3 % (0.0-2.0); EOSINOPHILS 0.1 % (0.0-3.0); HEMATOCRIT 37.8 % (42.0-52.0); HEMOGLOBIN 12.3 gm/dL (14.0-18.0); LYMPHOCYTES 8.3 % (24.0-44.0); MCH 27.8 pg (26.0-34.0); MCHC 32.5 g/dL (28.0-37.0); MCV 85.3 fL (80.0-100.0); MONOCYTES 6.1 % (1.0-8.0); PLATELET COUNT 512 thou/uL (150-400); POLYS 85.2 % (36.0-66.0); RBC 4.43 mil/uL (4.50-6.00); RDW 18.2 % (10.5-14.5); WBC 14.5 thou/uL (4.0-11.0)
[2018-01-08 10:59] LABS: ANION GAP 15 mmol/L (7-16); BUN 108 mg/dL (7-18); CALCIUM 7.9 mg/dL (8.5-10.1); CHLORIDE 92 mmol/L (98-107); CO2 30 mmol/L (21-32); CREATININE 2.8 mg/dL (0.7-1.3); GLUCOSE 188 mg/dL (74-106); SODIUM 137 mmol/L (136-145)
[2018-01-08 11:06] LABS: ALBUMIN 2.8 g/dL (3.4-5.0); SGOT 94 U/L (15-37); SGPT 99 U/L (30-65); TOTAL BILIRUBIN 0.3 mg/dL (<0.1-1.0); TROPONIN-I <0.06 ng/mL (<0.06)
[2018-01-08 15:33] LABS: BE(vivo) -4.4 mmol/L (-2 to +3); HCO3 20.1 mmol/L (22.0-26.0); PCO2 35.6 mmHg (35.0-45.0); PO2 34.8 mmHg (80.0-100.0); sO2 65.6 % (92.0-98.0)
[2018-01-08 18:05] LABS: BE(vivo) -7.6 mmol/L (-2 to +3); HCO3 18.8 mmol/L (22.0-26.0); PCO2 41.5 mmHg (35.0-45.0); PO2 80.1 mmHg (80.0-100.0); sO2 94.4 % (92.0-98.0)
[2018-01-08 18:06] LABS: pH 7.274 (7.360-7.450)
[2018-01-08 21:38] LABS: HEMOGLOBIN 11.7 gm/dL (14.0-18.0); MCH 27.8 pg (26.0-34.0); MCHC 32.5 g/dL (28.0-37.0); MCV 85.4 fL (80.0-100.0); RBC 4.22 mil/uL (4.50-6.00); RDW 18.4 % (10.5-14.5); WBC 6.7 thou/uL (4.0-11.0)
[2018-01-08 21:46] LABS: CALCIUM 6.7 mg/dL (8.5-10.1); CREATININE 2.5 mg/dL (0.7-1.3); POTASSIUM 4.1 mmol/L (3.5-5.1)
[2018-01-09] VITALS (49 sets, daily range): BP systolic 13–173; BP diastolic 27–121
[2018-01-09 14:46] LABS: HEMATOCRIT 24.8 % (42.0-52.0); MCH 28.5 pg (26.0-34.0); MCHC 32.8 g/dL (28.0-37.0); MCV 86.9 fL (80.0-100.0); RBC 2.85 mil/uL (4.50-6.00); RDW 18.5 % (10.5-14.5); WBC 9.5 thou/uL (4.0-11.0)
[2018-01-09 14:49] LABS: HEMOGLOBIN 8.1 gm/dL (14.0-18.0)
[2018-01-09 15:00] LABS: ALBUMIN 1.4 g/dL (3.4-5.0); MAGNESIUM 1.6 mg/dL (1.8-2.4); POTASSIUM 3.2 mmol/L (3.5-5.1); TOTAL BILIRUBIN 0.4 mg/dL (<0.1-1.0); TOTAL PROTEIN 5.3 g/dL (6.4-8.2)
[2018-01-09 15:06] LABS: CALCIUM 6.5 mg/dL (8.5-10.1)
[2018-01-09 17:52] LABS: BE(vivo) -6.3 mmol/L (-2 to +3); HCO3 18.2 mmol/L (22.0-26.0); PCO2 32.2 mmHg (35.0-45.0); PO2 118.4 mmHg (80.0-100.0); pH 7.371 (7.360-7.450); sO2 98.3 % (92.0-98.0)
[2018-01-10] VITALS (30 sets, daily range): BP systolic 102–167; BP diastolic 41–87
[2018-01-10 05:45] LABS: HEMATOCRIT 25.6 % (42.0-52.0); HEMOGLOBIN 8.2 gm/dL (14.0-18.0); MCH 27.9 pg (26.0-34.0); MCV 87.3 fL (80.0-100.0); RBC 2.93 mil/uL (4.50-6.00); RDW 18.2 % (10.5-14.5); WBC 6.7 thou/uL (4.0-11.0)
[2018-01-10 06:01] LABS: CALCIUM 7.1 mg/dL (8.5-10.1); MAGNESIUM 2.5 mg/dL (1.8-2.4); POTASSIUM 3.9 mmol/L (3.5-5.1)
[2018-01-11] VITALS (33 sets, daily range): BP systolic 84–130; BP diastolic 40–62
[2018-01-11 06:00] LABS: HEMATOCRIT 24.4 % (42.0-52.0); HEMOGLOBIN 7.7 gm/dL (14.0-18.0); MCH 27.6 pg (26.0-34.0); MCHC 31.5 g/dL (28.0-37.0); MCV 87.8 fL (80.0-100.0); RBC 2.78 mil/uL (4.50-6.00); RDW 18.4 % (10.5-14.5); WBC 5.6 thou/uL (4.0-11.0)
[2018-01-11 06:21] LABS: ALBUMIN 1.4 g/dL (3.4-5.0); CALCIUM 7.9 mg/dL (8.5-10.1); CREATININE 1.7 mg/dL (0.7-1.3); MAGNESIUM 2.3 mg/dL (1.8-2.4); PHOSPHORUS 3.8 mg/dL (2.5-4.9); TOTAL BILIRUBIN 0.3 mg/dL (<0.1-1.0); TOTAL PROTEIN 5.5 g/dL (6.4-8.2)
[2018-01-11 06:36] LABS: POTASSIUM 2.7 mmol/L (3.5-5.1)
[2018-01-12] VITALS (29 sets, daily range): BP systolic 104–143; BP diastolic 47–76
[2018-01-12 06:05] LABS: ABSOLUTE NEUTROPHILS 5.2 thou/uL (1.4-8.2); HEMOGLOBIN 6.7 gm/dL (14.0-18.0)
[2018-01-12 06:09] LABS: BASOPHILS 0.3 % (0.0-2.0); EOSINOPHILS 3.5 % (0.0-3.0); HEMATOCRIT 20.7 % (42.0-52.0); LYMPHOCYTES 3.8 % (24.0-44.0); MCH 28.1 pg (26.0-34.0); MCHC 32.3 g/dL (28.0-37.0); MONOCYTES 2.7 % (1.0-8.0); PLATELET COUNT 109 thou/uL (150-400); POLYS 89.7 % (36.0-66.0); RBC 2.38 mil/uL (4.50-6.00); RDW 18.4 % (10.5-14.5); WBC 5.8 thou/uL (4.0-11.0)
[2018-01-12 06:14] LABS: CALCIUM 7.9 mg/dL (8.5-10.1); CREATININE 1.6 mg/dL (0.7-1.3); MAGNESIUM 1.9 mg/dL (1.8-2.4); PHOSPHORUS 2.8 mg/dL (2.5-4.9); POTASSIUM 4.8 mmol/L (3.5-5.1)
[2018-01-13] VITALS (22 sets, daily range): BP systolic 74–127; BP diastolic 36–77
[2018-01-13 05:45] LABS: HEMATOCRIT 25.5 % (42.0-52.0); HEMOGLOBIN 8.5 gm/dL (14.0-18.0); MCH 29.5 pg (26.0-34.0); MCHC 33.2 g/dL (28.0-37.0); MCV 88.8 fL (80.0-100.0); RBC 2.88 mil/uL (4.50-6.00); RDW 17.8 % (10.5-14.5); WBC 5.8 thou/uL (4.0-11.0)
[2018-01-13 05:57] LABS: CREATININE 1.5 mg/dL (0.7-1.3); MAGNESIUM 1.7 mg/dL (1.8-2.4); PHOSPHORUS 2.7 mg/dL (2.5-4.9)
[2018-01-13 06:02] LABS: POTASSIUM 3.7 mmol/L (3.5-5.1)
[2018-01-14] VITALS (50 sets, daily range): BP systolic 63–120; BP diastolic 24–70
[2018-01-14 08:34] LABS: HEMATOCRIT 27.3 % (42.0-52.0); HEMOGLOBIN 8.8 gm/dL (14.0-18.0); MCH 29.6 pg (26.0-34.0); MCHC 32.4 g/dL (28.0-37.0); MCV 91.5 fL (80.0-100.0); RBC 2.98 mil/uL (4.50-6.00); RDW 18.2 % (10.5-14.5); WBC 7.5 thou/uL (4.0-11.0)
[2018-01-14 08:47] LABS: ALBUMIN 3.6 g/dL (3.4-5.0); CREATININE 1.9 mg/dL (0.7-1.3); POTASSIUM 3.3 mmol/L (3.5-5.1); TOTAL PROTEIN 6.4 g/dL (6.4-8.2)
[2018-01-14 09:22] LABS: ABSOLUTE NEUTROPHILS 7.1 thou/uL (1.4-8.2); NUCLEATED RBCS 1 /100WBC; PLATELET COUNT 92 thou/uL (150-400); PLATELET ESTIMATE SLIGHTLY DECREASED
[2018-01-15] VITALS (46 sets, daily range): BP systolic 65–113; BP diastolic 37–75
[2018-01-15 04:41] LABS: HEMATOCRIT 24.8 % (42.0-52.0); HEMOGLOBIN 7.9 gm/dL (14.0-18.0); MCH 29.3 pg (26.0-34.0); MCHC 31.9 g/dL (28.0-37.0); MCV 91.9 fL (80.0-100.0); PLATELET COUNT 92 thou/uL (150-400); RDW 17.7 % (10.5-14.5); WBC 12.3 thou/uL (4.0-11.0)
[2018-01-15 06:21] LABS: CALCIUM 7.8 mg/dL (8.5-10.1); CREATININE 2.1 mg/dL (0.7-1.3); MAGNESIUM 1.8 mg/dL (1.8-2.4)
[2018-01-15 07:59] LABS: ABSOLUTE NEUTROPHILS 11.1 thou/uL (1.4-8.2); METAMYELOCYTES 1 %; NUCLEATED RBCS 1 /100WBC
[2018-01-15 08:00] LABS: ANISOCYTOSIS 1+; BURR CELLS OCCASIONAL; POIKILOCYTOSIS SLIGHT
[2018-01-15 11:03] LABS: BE(vivo) -22.3 mmol/L (-2 to +3); HCO3 11.6 mmol/L (22.0-26.0); sO2 30.7 % (92.0-98.0)
[2018-01-15 11:04] LABS: PCO2 80.1 mmHg (35.0-45.0); pH 6.779 (7.360-7.450)
[2018-01-15 12:42] LABS: BE(vivo) -23.1 mmol/L (-2 to +3); HCO3 11.5 mmol/L (22.0-26.0); PCO2 VENOUS 83.3 mmHg (41.0-51.0); PO2 VENOUS 45.9 mmHg (35.0-45.0)
[2018-01-15 16:59] LABS: BE(vivo) -19.3 mmol/L (-2 to +3); HCO3 13.4 mmol/L (22.0-26.0); PCO2 77.8 mmHg (35.0-45.0); PO2 52.6 mmHg (80.0-100.0); pH 6.854 (7.360-7.450); sO2 58.2 % (92.0-98.0)
[2018-01-15 22:40] LABS: HEMATOCRIT 22.2 % (42.0-52.0); HEMOGLOBIN 7.1 gm/dL (14.0-18.0); MCHC 32.2 g/dL (28.0-37.0); MCV 90.1 fL (80.0-100.0); RBC 2.46 mil/uL (4.50-6.00); RDW 17.7 % (10.5-14.5); WBC 16.5 thou/uL (4.0-11.0)
[2018-01-15 22:53] LABS: BE(vivo) -19.7 mmol/L (-2 to +3); HCO3 13.4 mmol/L (22.0-26.0); PCO2 VENOUS 81.5 mmHg (41.0-51.0); PO2 VENOUS 33.7 mmHg (35.0-45.0)
[2018-01-16] VITALS (55 sets, daily range): BP systolic 48–129; BP diastolic 21–99
[2018-01-16 05:25] LABS: HCO3 11.4 mmol/L (22.0-26.0); PCO2 VENOUS 86.2 mmHg (41.0-51.0); PO2 VENOUS 33.9 mmHg (35.0-45.0)
[2018-01-16 05:46] LABS: CREATININE 2.2 mg/dL (0.7-1.3); POTASSIUM 4.5 mmol/L (3.5-5.1)
[2018-01-16 05:49] LABS: HEMATOCRIT 21.5 % (42.0-52.0); HEMOGLOBIN 6.9 gm/dL (14.0-18.0); MCH 29.4 pg (26.0-34.0); MCV 91.8 fL (80.0-100.0); RBC 2.34 mil/uL (4.50-6.00); RDW 17.7 % (10.5-14.5); WBC 18.4 thou/uL (4.0-11.0)
[2018-01-16 06:03] LABS: CALCIUM 7.3 mg/dL (8.5-10.1)
[2018-01-16 09:55] LABS: BE(vivo) -25.1 mmol/L (-2 to +3); HCO3 10.1 mmol/L (22.0-26.0); PCO2 VENOUS 89.6 mmHg (41.0-51.0); PO2 VENOUS 32.4 mmHg (35.0-45.0)
== END 2018-01-16 21:07 | DRG 853 ==
LOC: ER 09:21 → ICU 13:54 → EROBS 13:54 → ICU 14:45
PROVIDERS: Emergency Medicine; Hospitalist; Internal Medicine; Nurse Practitioner; Nurse Practitioner Family; Pediatrics
DX: A41.9 Sepsis, unspecified organism (principal); L89.154 Pressure ulcer of sacral region, stage 4; L89.623 Pressure ulcer of left heel, stage 3; R65.21 Severe sepsis with septic shock; J18.9 Pneumonia, unspecified organism; G82.50 Quadriplegia, unspecified; J96.21 Acute and chronic respiratory failure with hypoxia; J96.22 Acute and chronic respiratory failure with hypercapnia; N17.9 Acute kidney failure, unspecified; E44.0 Moderate protein-calorie malnutrition; I47.1 Supraventricular tachycardia; J93.83 Other pneumothorax; K56.7 Ileus, unspecified; M86.8X8 Other osteomyelitis, other site; E87.0 Hyperosmolality and hypernatremia; D62 Acute posthemorrhagic anemia; E87.4 Mixed disorder of acid-base balance; I47.2 Ventricular tachycardia; N18.9 Chronic kidney disease, unspecified; Z66 Do not resuscitate; E11.22 Type 2 diabetes mellitus with diabetic chronic kidney disease; E87.8 Other disorders of electrolyte and fluid balance, not elsewhere classified; I12.9 Hypertensive chronic kidney disease with stage 1 through stage 4 chronic kidney disease, or unspecified chronic kidney disease; E03.9 Hypothyroidism, unspecified; I48.0 Paroxysmal atrial fibrillation; E86.0 Dehydration; D47.3 Essential (hemorrhagic) thrombocythemia; E87.6 Hypokalemia; F32.9 Major depressive disorder, single episode, unspecified; E11.69 Type 2 diabetes mellitus with other specified complication; K21.9 Gastro-esophageal reflux disease without esophagitis; E78.5 Hyperlipidemia, unspecified; Z93.3 Colostomy status; Z68.23 Body mass index [BMI] 23.0-23.9, adult; Z93.1 Gastrostomy status; Z89.611 Acquired absence of right leg above knee; Z86.718 Personal history of other venous thrombosis and embolism; Z79.82 Long term (current) use of aspirin; Z79.899 Other long term (current) drug therapy
CPT/HCPCS: 10078; 27000; 85026